=== PATIENT | female | born 1995 | race Caucasian/White ===

== ENCOUNTER 2019-06-16 18:39 | Emergency (ER) | payer OTHER ==
--- OUTSIDE RECORDS SUMMARY | 2019-06-16 18:41 | XMS REPORT | Encounter Summary ---
:1995 Author Care Team Providers Name Role Phone Grace Arroyo Primary Care Provider [phone] Reason for Visit congestion; cough / wheezing Instructions 1. Muscle spasm of cervical muscle of neck cyclobenzaprine 5 mg tablet 2. Acute upper respiratory infection upper respiratory infection (cold): care instructions Zithromax Z-Bret 250 mg tablet Medrol (Bret) 4 mg tablets in a dose pack Depo-Medrol 40 mg/mL suspension for injection Discussion Note: None recorded. Plan of Care Reminders Provider Appointments None recorded. Lab None recorded. Referral None recorded. Procedures None recorded. Surgeries None recorded. Imaging None recorded. Medications Name Start Date cyclobenzaprine 5 mg tablet Take 1 tablet 3 times a day by oral route for 5 days. Medrol (Bret) 4 mg tablets in a dose pack Take by oral route as directed Nexplanon 68 mg subdermal implant Inject by subcutaneous route. Zithromax Z-Bret 250 mg tablet TAKE 2 TABLETS (500 MG) BY ORAL ROUTE ONCE DAILY FOR 1 DAY THEN 1 TABLET (250 MG) BY ORAL ROUTE ONCE DAILY FOR 4 DAYS Medications Administered None recorded. Vitals Height Weight BMI Blood Pressure 64 in 222 lbs 3 oz 38.1 kg/m2 143/73 mm[Hg] Lab Results None recorded. Allergies Code Code System Name Reaction Severity Status Onset NKDA Problems Name Status Onset Date Source Contact Dermatitis Active Encounter Procedures Date Name Performed by 06/19/2011 Caesarean Section Information not available Vaccine List None recorded. Social History Smoking Status Former Smoker Past Encounters 06/25/2018 Muscle Spasm of Cervical Muscle of Neck; Acute Upper Respiratory Infection Rey Rodriguez MD: [address] [place] [address], [address], [place] [address], Ph. History of Present Illness Upper Respiratory Symptoms Reported By: Patient Upper Respiratory Symptoms: Location: chest, throat. Quality: sharp throat pain, congested, hurts to swallow. Severity: mild. Duration: ; 2 days ago. Onset/Timing: gradual. Context: no sick contacts, no foreign travel, non-smoker. Associated Symptoms: no vomiting, no diarrhea, no rash, no nausea, morning cough, sore throat Notes: tight neck, no photophobia, no nausea or vomiting,has had [place] in the past Review of Systems: ROS as noted in the HPI Review of Systems None recorded. Physical Exam General Adult Exam - Female, Upper Respiratory Infection Exam Reported By: Patient ENMT: Ears: TM erythematous. Nose: frontal sinus tenderness, maxillary sinus tenderness. Oropharynx: moist mucous membranes, erythema, tonsils enlarged, tenderness Neck: Neck: pain with motion, muscle rigidity; tender muscl spasm right paracervical spine with decreased rom. Lymph Nodes: LAD. Thyroid: no enlargement, non-tender Lungs: Auscultation: no wheezing, no rales/crackles, no rhonchi, clear to auscultation Cardiovascular: Heart Auscultation: normal S1, normal S2, no murmurs. Rate And Rhythm RRR Notes: NAD, complains of stiffness right side if neck. No rashes, well nourished.
--- OUTSIDE RECORDS SUMMARY | 2019-06-16 18:41 | XMS REPORT | Continuity of Care Document ---
:1995 Author Organization [facility] Address [address] [place] [address] Phone Unavailable Care Team Providers Name Role Phone ANOOP CHILDS Primary Care Physician Insurance Providers Guarantor Rocio Cabrera Address [address] [place] [address] Email [email or web address] Payer Medicaid Policy Number [id number] Subscriber's Name Rocio Cabrera Relationship Self / Same As Patient Group Number NA Group Name HTW Advance Directives Directive Response Recorded Date/Time Advance Directives No 01/12/16 9:04am Advance Directive on File No 08/08/18 2:40pm Directive to Physicians/Living Will No 01/12/16 9:04am Health Care Proxy No 01/12/16 9:04am Name of Surrogate/Decision Maker NA 08/08/18 4:55pm Organ Donor No 01/12/16 9:04am Medical Power of Chief Information Officer No 01/12/16 9:04am Patient/Family Given Education Material R/T Directives? Y - VV 08/08/18 4: 55pm Chief Complaint and Reason for Visit Chief Complaint Abdominal/GI/Nausea/Vomiting Reason for Visit UTI (urinary tract infection) Problems Medical Problem Onset Date Status Anemia Unknown Acute Delivery with history of 12/11/2014 Acute Unknown Acute UTI (urinary tract infection) Unknown Acute Vomiting Unknown Acute Surgical Problem Onset Date Status Status post 12/11/2014 Acute Status post repeat low transverse section Unknown Acute Past Problems Medical Problem Onset Date Status Headache Unknown Acute Pyelonephritis Unknown Acute Syncope Unknown Acute Medications Current Home Medications Medication Dose Units Route Directions Days Qty Instructions Start Date Fe Fumarate-Fe 1 Tab ORAL Once Daily 30 Cap 12/13/14 Polysaccharide- * (Integra *) Cap Hydrocodone-Alex 1-2 Tabs ORAL Every 4-6H As 30 Tablet 12/13/14 taminophen Needed/ Pain as 5/325MG * needed for Pain ([place] 5/325MG *) 1 Tab Tab Hydrocodone-Alex 1-2 Tabs ORAL Every 4-6H As 30 Tablet 01/13/16 taminophen Needed/ Pain as 5/325MG * needed for Pain ([place] 5/325MG *) 1 Tab Tab Ibuprofen 800 800 Mg ORAL Every 6 Hours 30 Tablet 12/13/14 Mg Tab As Needed Ibuprofen 800 800 Mg ORAL Every 6 Hours 30 Tablet 01/13/16 Mg Tab As Needed 1 Tab ORAL Daily 30 Tablet Multivit-Min W/Fe-Fa * ( *) Tab Social History Social History Problem Response Recorded Date/Time Onset Date Status Hx Physical Abuse No 08/08/2018 2:40pm Not Applicable Not Applicable Smoking Status Start Date Stop Date Never smoker Hospital Discharge Instructions No hospital discharge instruction information available. Plan of Care Discharge Date 08/08/18 7:36pm Instructions/Education Provided Urinary Tract Infection, Adult, [id number] Forms Provided Portal Welcome Letter Prescriptions See Medication Section Referrals ANOOP CHILDS Address: [address] [place] [id number] Additional Instructions/Education Cipro 500mg 1 tab. twice a day Protonix 40mg 1 tab. once daily FOLLOW UP WITH PCP IN 1-2 DAYS RETURN IF SYMPTOMS WORSEN, FEVER, OR NEW SYMPTOMS RETURN TO DUTY AFTER FOLLOW UP WITH PCP Functional Status No functional status information available. Allergies, Adverse Reactions, Alerts Allergen Type Severity Reaction Status Last Updated HAZEL Allergy Unknown Active 09/29/13 NKDA Allergy Unknown Active 11/06/15 Immunizations No immunization information available. Vital Signs Acute Vital Signs Vital Response Date/Time Blood Pressure 109/64 mm Hg 08/08/2018 7:44pm Pulse Pulse Rate (adult) 62 beats per minute (60 - 100) 08/08/2018 7:44pm Respiratory Rate 20 breaths per minute (10 - 24) 08/08/2018 7:44pm Temperature Source Oral 08/08/2018 7:44pm Height 5 ft 3 in 08/08/2018 2:40pm Weight 222.38 lb 08/08/2018 2:40pm Body Mass Index 39.4 kg/m^2 08/08/2018 2:40pm Results Laboratory Results Test Name Result Units Flags Reference Collection Result Comments Date/Time Date/Time White Blood Count 6.9 K/ul 4.0-11.5 08/08/2018 08/08/2018 2:52pm 3:00pm Red Blood Count 4.60 M/ul 3.80-5.20 08/08/2018 08/08/2018 2:52pm 3:00pm Hemoglobin 13.6 g/dl 10.5-15.7 08/08/2018 08/08/2018 2:52pm 3:00pm Hematocrit 41.2 % 34.0-50.0 08/08/2018 08/08/2018 2:52pm 3:00pm Mean Corpuscular 89.6 fl 78-98 08/08/2018 08/08/2018 Volume 2:52pm 3:00pm Mean Corpuscular 29.5 pg 26.2-33.4 08/08/2018 08/08/2018 Hemoglobin 2:52pm 3:00pm Mean Corpuscular 32.9 g/dl 31.5-36.2 08/08/2018 08/08/2018 Hemoglobin Concent 2:52pm 3:00pm Red Cell 12.1 % 11.5-15.5 08/08/2018 08/08/2018 Distribution Width 2:52pm 3:00pm Platelet Count 205 K/ul 137-338 08/08/2018 08/08/2018 2:52pm 3:00pm Mean Platelet 7.9 fl L 8.4-11.8 08/08/2018 08/08/2018 Volume 2:52pm 3:00pm Neutrophils (%) 48.3 % 44.4-80.1 08/08/2018 08/08/2018 (Auto) 2:52pm 3:00pm Lymphocytes (%) 40.2 % 10.0-50.0 08/08/2018 08/08/2018 (Auto) 2:52pm 3:00pm Monocytes (%) 9.9 % 3.6-12.04 08/08/2018 08/08/2018 (Auto) 2:52pm 3:00pm Eosinophils (%) 0.9 % 0.0-5.41 08/08/2018 08/08/2018 (Auto) 2:52pm 3:00pm Basophils (%) 0.6 % 0.0-0.79 08/08/2018 08/08/2018 (Auto) 2:52pm 3:00pm Urine Color YELLOW 08/08/2018 08/08/2018 2:42pm 2:57pm Urine Appearance CLOUDY A CLEAR 08/08/2018 08/08/2018 2:42pm 2:57pm Urine Glucose NEGATIVE NEGATIVE 08/08/2018 08/08/2018 2:42pm 2:57pm Urine Bilirubin NEGATIVE NEGATIVE 08/08/2018 08/08/2018 2:42pm 2:57pm Urine Ketones NEGATIVE NEGATIVE 08/08/2018 08/08/2018 2:42pm 2:57pm Urine Specific 1.025 1.003-1.03 08/08/2018 08/08/2018 [place] 0 2:42pm 2:57pm Urine Blood NEGATIVE NEGATIVE 08/08/2018 08/08/2018 2:42pm 2:57pm Urine pH 6.500 5-9 08/08/2018 08/08/2018 2:42pm 2:57pm Urine Protein TRACE H NEGATIVE 08/08/2018 08/08/2018 2:42pm 2:57pm Urine Urobilinogen 0.2 E.U./dL 0.2-1.0 08/08/2018 08/08/2018 2:42pm 2:57pm Urine Nitrate NEGATIVE NEGATIVE 08/08/2018 08/08/2018 2:42pm 2:57pm Urine Leukocyte 3+ LARGE H NEGATIVE 08/08/2018 08/08/2018 Esterase 2:42pm 2:57pm Urine RBC NONE SEEN /hpf 0-5 08/08/2018 08/08/2018 2:42pm 2:57pm Urine WBC 6-10 /hpf H 0-5 08/08/2018 08/08/2018 2:42pm 2:57pm Urine Bacteria SMALL (1+) /hpf H None 08/08/2018 08/08/2018 Detect 2:42pm 2:57pm Urine Casts 2-5 /lpf None 08/08/2018 08/08/2018 Detect 2:42pm 2:57pm Urine Culture NO. 08/08/2018 08/08/2018 >10 EPITHELIAL CELLS/HPF. INDICATIVE OF CONTAMINATED URINE. Reflexed CONTAMINAT 2:42pm 2:57pm CULTURE WILL NOT BE PERFORMED. PLEASE RECOLLECT IF CULTURE ED. IS DEEMED NECESSARY. Urine Squamous MORE THAN /lpf 0-5 08/08/2018 08/08/2018 Epithelial Cells 25/lpf 2:42pm 2:57pm Urine Mucus 1+ /lpf None 08/08/2018 08/08/2018 Detect 2:42pm 2:57pm Urine Amorphous SMALL /lpf None Seen 08/08/2018 08/08/2018 Sediment 2:42pm 2:57pm Random Glucose 73 mg/dL L 74-106 08/08/2018 08/08/2018 2:52pm 3:14pm Blood Urea 13 mg/dL -08/08/2018 08/08/2018 Nitrogen 2:52pm 3:14pm Serum Osmolality 280 280-300 08/08/2018 08/08/2018 2:52pm 3:14pm Creatinine 0.7 mg/dL 0.50-0.90 08/08/2018 08/08/2018 2:52pm 3:14pm Glomerular > 60.00 08/08/2018 08/08/2018 GFR RESULTS ARE REPORTED IN mL/min/1.73m2. Filtration Rate 2:52pm 3:14pm Calc Normal GFR: >60mL/min Moderately decreased GFR: 30-59 mL/min Severely decreased GFR: 15-29 mL/min Kidney Failure (or Dialysis): <15 mL/min The calculated eGFR is not valid for patients younger than 18 years or older than 75 years. BUN/Creatinine 18.6 12-08/08/2018 08/08/2018 Ratio 2:52pm 3:14pm Sodium Level 141 mmol/L 135-145 08/08/2018 08/08/2018 2:52pm 3:14pm Potassium Level 3.8 mmol/L 3.5-5.2 08/08/2018 08/08/2018 2:52pm 3:14pm Chloride Level 108 mmol/L 98-108 08/08/2018 08/08/2018 2:52pm 3:14pm Carbon Dioxide 20 mmol/L L 21-32 08/08/2018 08/08/2018 Level 2:52pm 3:14pm Anion Gap 16.8 mEq/L 1208/08/2018 08/08/2018 2:52pm 3:14pm Calcium Level 9.4 mg/dL 8.6-10.0 08/08/2018 08/08/2018 2:52pm 3:14pm Magnesium Level 2.0 mg/dL 1.6-2.6 08/08/2018 08/08/2018 2:52pm 3:14pm Total Protein 7.9 g/dL 6.6-8.7 08/08/2018 08/08/2018 2:52pm 3:14pm Albumin 4.3 g/dL 3.5-5.2 08/08/2018 08/08/2018 2:52pm 3:14pm Globulin 3.6 gm/dL 08/08/2018 08/08/2018 2:52pm 3:14pm Albumin/Globulin 1.2 >1.0 08/08/2018 08/08/2018 Ratio 2:52pm 3:14pm Total Bilirubin 0.3 mg/dL 0.0-1.2 08/08/2018 08/08/2018 2:52pm 3:14pm Aspartate Amino 16 U/L 15-32 08/08/2018 08/08/2018 Transf (AST/SGOT) 2:52pm 3:14pm Alanine 14 U/L 0-33 08/08/2018 08/08/2018 Aminotransferase 2:52pm 3:14pm (ALT/SGPT) Amylase Level 48 U/L 28-100 08/08/2018 08/08/2018 2:52pm 3:14pm Lipase 32 U/L 13-60 08/08/2018 08/08/2018 2:52pm 3:14pm Total Alkaline 104 U/L 35-105 08/08/2018 08/08/2018 Phosphatase 2:52pm 3:14pm Urine HCG, NEGATIVE NEG 08/08/2018 08/08/2018 Qualitative 2:42pm 2:53pm If a negative result is obtained but is suspected, a new specimen should be collected after 48-72 hours and tested. If waiting 48 hrs is not medically advisable, the test result should be confirmed with at quantitative hCG assay. Procedures Procedure Status Date Provider(s) Computed tomography of abdomen and pelvis with Completed 08/08/18 VALENTINA REINOSO MD contrast Encounters Encounter Location Arrival/Admit Date Discharge/Depart Date Attending Provider Departed [place] 08/08/18 2:21pm 08/08/18 7:36pm VALENTINA REINOSO [facility] Recent Diagnosis
--- OUTSIDE RECORDS SUMMARY | 2019-06-16 18:42 | XMS REPORT | Continuity of Care Document ---
:1995 Author Organization [facility] Address [address] [place] [address] Phone Unavailable Care Team Providers Name Role Phone ANOOP CHILDS Primary Care Physician Insurance Providers Guarantor RickRocio Address [address] [place] [address] Email [email or web address] Payer Medicaid Policy Number [id number] Subscriber's Name Rocio Cabrera Relationship Self / Same As Patient Group Number NA Group Name HTW Advance Directives Directive Response Recorded Date/Time Advance Directives No 01/12/16 9:04am Advance Directive on File No 08/09/18 12:43pm Directive to Physicians/Living Will No 01/12/16 9:04am Health Care Proxy No 01/12/16 9:04am Organ Donor No 01/12/16 9:04am Medical Power of Photographer Lith[employer] No 01/12/16 9:04am Patient/Family Given Education Material R/T Y - 08/09/18...[place] 08/09/18 1: 54pm Directives? Chief Complaint and Reason for Visit Chief Complaint Abdominal/GI/Nausea/Vomiting Reason for Visit Nonspecific mesenteric adenitis Urine positive for Chlamydia trachomatis by PCR Right sided abdominal pain UTI (urinary tract infection) Problems Medical Problem Onset Date Status Anemia Unknown Acute Delivery with history of 12/11/2014 Acute Unknown Acute UTI (urinary tract infection) Unknown Acute Vomiting Unknown Acute Surgical Problem Onset Date Status Status post 12/11/2014 Acute Status post repeat low transverse section Unknown Acute Past Problems Medical Problem Onset Date Status Headache Unknown Acute Nonspecific mesenteric adenitis Unknown Acute Pyelonephritis Unknown Acute Right sided abdominal pain Unknown Acute Syncope Unknown Acute Urine positive for Chlamydia trachomatis by PCR Unknown Acute Medications Current Home Medications Medication Dose Units Route Directions Days Qty Instructions Start Date Fe Fumarate-Fe 1 Tab ORAL Once Daily 30 Cap 12/13/14 Polysaccharide- * (Integra *) Cap Hydrocodone-Alex 1-2 Tabs ORAL Every 4-6H As 30 Tablet 12/13/14 taminophen Needed/ Pain 5/325MG * as needed for ([place] 5/325MG Pain *) 1 Tab Tab Hydrocodone-Alex 1-2 Tabs ORAL Every 4-6H As 30 Tablet 01/13/16 taminophen Needed/ Pain 5/325MG * as needed for ([place] 5/325MG Pain *) 1 Tab Tab Ibuprofen 800 800 Mg ORAL Every 6 Hours 30 Tablet 12/13/14 Mg Tab As Needed Ibuprofen 800 800 Mg ORAL Every 6 Hours 30 Tablet 01/13/16 Mg Tab As Needed Naproxen 500 Mg ORAL Twice A Day 7 Days 14 Tablet 08/09/18 (Naprosyn 500 for Pain Mg*) 500 Mg Tab 1 Tab ORAL Daily 30 Tablet Multivit-Min W/Fe-Fa * ( *) Tab Trimethoprim/[place] 1 Tab ORAL Twice A Day 7 Days 14 Tablet 08/09/18 lfamethoxazole for Infection (Bactrim Ds *) 800/160 Mg Tab Past Home Medications Medication Directions Ordered Status Azithromycin (Zithromax *) 500 Mg For One Dose Only for 08/09/18 Discontinued Tab, 1000 Mg Oral Infection Social History Social History Problem Response Recorded Date/Time Onset Date Status Hx Physical Abuse No 08/09/2018 12:43pm Not Applicable Not Applicable Smoking Status Start Date Stop Date Never smoker Hospital Discharge Instructions No hospital discharge instruction information available. Plan of Care Discharge Date 08/09/18 4:28pm Instructions/Education Provided Mesenteric Adenitis, Adult Urinary Tract Infection, Adult Abdominal Pain, Adult Forms Provided Portal Welcome Letter Prescriptions See Medication Section Referrals ANOOP CHILDS Address: [address] [place] [id number] Additional Instructions/Education BACTRIM-DS & NAPROSYN Rx. DRINK MORE WATER. ' ENSURE COMPLIANCE WITH YOUR MEDICATIONS. SEE YOUR PCP FOR RECHECK WITHIN 5 DAYS, OR EARLIER IF WORSE. ADDENDUM: RESULT OF URINE CHLAMYDIA TEST CAME BACK +VE., SHE WAS LEAVING. SHE WAS CALLED BACK & GIVEN ZITHROMAX 1 gm IN THE ED FOP THIS NO UNPROTECTED SEX UNTIL YOUR PARTNER HAS BEEN TREATED FOR CHLAMYDIA Functional Status No functional status information available. Allergies, Adverse Reactions, Alerts Allergen Type Severity Reaction Status Last Updated HAZEL Allergy Unknown Active 09/29/13 NKDA Allergy Unknown Active 11/06/15 Immunizations No immunization information available. Vital Signs Acute Vital Signs Vital Response Date/Time Blood Pressure 97/53 mm Hg 08/09/2018 4:28pm Pulse Pulse Rate (adult) 60 beats per minute (60 - 100) 08/09/2018 4:28pm Respiratory Rate 16 breaths per minute (10 - 24) 08/09/2018 4:28pm Temperature Source Oral 08/09/2018 4:28pm Height 5 ft 3 in 08/09/2018 12:43pm Weight 222 lb 08/09/2018 12:43pm Body Mass Index 39.3 kg/m^2 08/09/2018 12:43pm Results Laboratory Results Test Name Result Units Flags Reference Collection Result Comments Date/Time Date/Time Urine Squamous MORE THAN /lpf 0-5 08/08/2018 08/08/2018 Epithelial Cells 25/lpf 2:42pm 2:57pm Magnesium Level 2.0 mg/dL 1.6-2.6 08/08/2018 08/08/2018 2:52pm 3:14pm Amylase Level 48 U/L 28-100 08/08/2018 08/08/2018 2:52pm 3:14pm Urine HCG, NEGATIVE NEG 08/08/2018 08/08/2018 Qualitative 2:42pm 2:53pm If a negative result is obtained but is suspected, a new specimen should be collected after 48-72 hours and tested. If waiting 48 hrs is not medically advisable, the test result should be confirmed with at quantitative hCG assay. White Blood Count 8.0 K/ul 4.0-11.5 08/09/2018 08/09/2018 1:48pm 1:55pm Red Blood Count 4.57 M/ul 3.80-5.20 08/09/2018 08/09/2018 1:48pm 1:55pm Hemoglobin 13.1 g/dl 10.5-15.7 08/09/2018 08/09/2018 1:48pm 1:55pm Hematocrit 40.5 % 34.0-50.0 08/09/2018 08/09/2018 1:48pm 1:55pm Mean Corpuscular 88.6 fl 78-98 08/09/2018 08/09/2018 Volume 1:48pm 1:55pm Mean Corpuscular 28.6 pg 26.2-33.4 08/09/2018 08/09/2018 Hemoglobin 1:48pm 1:55pm Mean Corpuscular 32.3 g/dl 31.5-36.2 08/09/2018 08/09/2018 Hemoglobin Concent 1:48pm 1:55pm Red Cell 12.1 % 11.5-15.5 08/09/2018 08/09/2018 Distribution Width 1:48pm 1:55pm Platelet Count 219 K/ul 137-338 08/09/2018 08/09/2018 1:48pm 1:55pm Mean Platelet 7.6 fl L 8.4-11.8 08/09/2018 08/09/2018 Volume 1:48pm 1:55pm Neutrophils (%) 60.4 % 44.4-80.1 08/09/2018 08/09/2018 (Auto) 1:48pm 1:55pm Lymphocytes (%) 31.7 % 10.0-50.0 08/09/2018 08/09/2018 (Auto) 1:48pm 1:55pm Monocytes (%) 6.2 % 3.6-12.04 08/09/2018 08/09/2018 (Auto) 1:48pm 1:55pm Eosinophils (%) 1.0 % 0.0-5.41 08/09/2018 08/09/2018 (Auto) 1:48pm 1:55pm Basophils (%) 0.7 % 0.0-0.79 08/09/2018 08/09/2018 (Auto) 1:48pm 1:55pm Urine Color YELLOW 08/09/2018 08/09/2018 UNK 2:15pm Urine Appearance SL CLOUDY A CLEAR 08/09/2018 08/09/2018 UNK 2:15pm Urine Glucose NEGATIVE NEGATIVE 08/09/2018 08/09/2018 UNK 2:15pm Urine Bilirubin NEGATIVE NEGATIVE 08/09/2018 08/09/2018 UNK 2:15pm Urine Ketones NEGATIVE NEGATIVE 08/09/2018 08/09/2018 UNK 2:15pm Urine Specific 1.036 H 1.003-1.03 08/09/2018 08/09/2018 [place] 0 UNK 2:15pm Urine Blood NEGATIVE NEGATIVE 08/09/2018 08/09/2018 UNK 2:15pm Urine pH 7.000 5-9 08/09/2018 08/09/2018 UNK 2:15pm Urine Protein TRACE NEGATIVE 08/09/2018 08/09/2018 UNK 2:15pm Urine Urobilinogen 2.0-3.0 mg/dL H 0.2-1.0 08/09/2018 08/09/2018 UNK 2:15pm Urine Nitrate NEGATIVE NEGATIVE 08/09/2018 08/09/2018 UNK 2:15pm Urine Leukocyte 2+ H NEGATIVE 08/09/2018 08/09/2018 Esterase UNK 2:15pm Urine RBC 1-5 /hpf 0-5 08/09/2018 08/09/2018 UNK 2:26pm Urine WBC 11-14 /hpf H 0-5 08/09/2018 08/09/2018 UNK 2:26pm Urine Epithelial 6-10 /hpf 0-5 08/09/2018 08/09/2018 Cells UNK 2:26pm Urine Bacteria MODERATE /hpf H None 08/09/2018 08/09/2018 (2+) Detect UNK 2:26pm Urine Casts 6-10 /lpf H None 08/09/2018 08/09/2018 Detect UNK 2:26pm Urine Culture YES 08/09/2018 08/09/2018 Reflexed UNK 2:15pm Urine Mucus 1+ /lpf None 08/09/2018 08/09/2018 Detect UNK 2:26pm Urine Amorphous SMALL /lpf None Seen 08/09/2018 08/09/2018 Sediment UNK 2:26pm Urine Pathogenic Coarse /hpf A None 08/09/2018 08/09/2018 Casts granular Detect UNK 2:26pm 1-5 Random Glucose 94 mg/dL 74-106 08/09/2018 08/09/2018 1:48pm 2:23pm Blood Urea 15 mg/dL 608/09/2018 08/09/2018 Nitrogen 1:48pm 2:23pm Serum Osmolality 280 280-300 08/09/2018 08/09/2018 1:48pm 2:23pm Creatinine 0.7 mg/dL 0.50-0.90 08/09/2018 08/09/2018 1:48pm 2:23pm Glomerular > 60.00 08/09/2018 08/09/2018 GFR RESULTS ARE REPORTED IN mL/min/1.73m2. Filtration Rate 1:48pm 2:23pm Calc Normal GFR: >60mL/min Moderately decreased GFR: 30-59 mL/min Severely decreased GFR: 15-29 mL/min Kidney Failure (or Dialysis): <15 mL/min The calculated eGFR is not valid for patients younger than 18 years or older than 75 years. BUN/Creatinine 21.4 H 06-0708/09/2018 08/09/2018 Ratio 1:48pm 2:23pm Sodium Level 140 mmol/L 135-145 08/09/2018 08/09/2018 1:48pm 2:23pm Potassium Level 3.9 mmol/L 3.5-5.2 08/09/2018 08/09/2018 1:48pm 2:23pm Chloride Level 107 mmol/L 98-108 08/09/2018 08/09/2018 1:48pm 2:23pm Carbon Dioxide 22 mmol/L 21-32 08/09/2018 08/09/2018 Level 1:48pm 2:23pm Anion Gap 14.9 mEq/L 06-0708/09/2018 08/09/2018 1:48pm 2:23pm Calcium Level 9.1 mg/dL 8.6-10.0 08/09/2018 08/09/2018 1:48pm 2:23pm Total Protein 7.4 g/dL 6.6-8.7 08/09/2018 08/09/2018 1:48pm 2:23pm Albumin 4.3 g/dL 3.5-5.2 08/09/2018 08/09/2018 1:48pm 2:23pm Globulin 3.1 gm/dL 08/09/2018 08/09/2018 1:48pm 2:23pm Albumin/Globulin 1.4 >1.0 08/09/2018 08/09/2018 Ratio 1:48pm 2:23pm Total Bilirubin < 0.3 mg/dL 0.0-1.2 08/09/2018 08/09/2018 1:48pm 2:23pm Aspartate Amino 15 U/L 15-32 08/09/2018 08/09/2018 Transf (AST/SGOT) 1:48pm 2:23pm Alanine 14 U/L 0-33 08/09/2018 08/09/2018 Aminotransferase 1:48pm 2:23pm (ALT/SGPT) Lipase 27 U/L 13-60 08/09/2018 08/09/2018 1:48pm 2:23pm Total Alkaline 100 U/L 35-105 08/09/2018 08/09/2018 Phosphatase 1:48pm 2:23pm Procedures Procedure Status Date Provider(s) Computed tomography of abdomen and pelvis with Completed 08/08/18 VALENTINA REINOSO MD contrast Encounters Encounter Location Arrival/Admit Date Discharge/Depart Date Attending Provider Departed [place] 08/09/18 12:29pm 08/09/18 4:28pm LEANNE DOUGLAS [facility] Departed [place] 08/08/18 2:21pm 08/08/18 7:36pm VALENTINA REINOSO [facility] Recent Diagnosis
--- NOTE | 2019-06-16 20:05 | ER ---
Nurse's Notes [facility] Name: Marly Cabrera Age: 23 yrs Sex: Female : 1995 Arrival Date: 06/16/2019 Time: 18:41 Bed 28 Private MD: Diagnosis: Acute pharyngitis, unspecified Presentation: 06/16 19:20 Presenting complaint: Patient states: she has a sore throat, fever, and a cough since bb pt took ibuprofen 800 mg at approx 1700 tonight. Transition of care: patient was not received from another setting of care. Onset of symptoms was June 13, 2019. Risk Assessment: Do you want to hurt yourself or someone else? Patient reports no desire to harm self or others. Initial Sepsis Screen: Does the patient meet any 2 criteria? No. Patient's initial sepsis screen is negative. Does the patient have a suspected source of infection? No. Patient's initial sepsis screen is negative. Care prior to arrival: None. 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 - Ebola Screening: : No symptoms or risks identified at this time. Screenin:15 Abuse screen: Denies threats or abuse. Nutritional screening: No deficits noted. sr5 Tuberculosis screening: No symptoms or risk factors identified. Fall Risk None identified. Assessment: 20:15 Reassessment: No changes from previously documented assessment. Patient is alert, sr5 oriented x 3, equal unlabored respirations, skin warm/dry/pink. +nonproductive cough noted, "feel so cold". Temp checked, no fever. Vital Signs: 19:21 BP 105 / 91; Pulse 98; Resp 16 S; Temp 98.6(O); Pulse Ox 100% on R/A; bb 20:15 BP 109 / 71; Pulse 98; Resp 18; Temp 97.5; Pulse Ox 100% on R/A; sr5 ED Course: 18:41 Patient arrived in ED. as 18:51 Elham Rucker FNP-C is [facility]. snw 18:51 Izaiah Celeste MD is Attending Physician. snw 19:21 Triage completed. bb 19:21 Arm band placed on Patient placed in an exam room, on a stretcher, on pulse oximetry. bb Family accompanied patient. 19:26 Tanner Troy, RN is Primary Nurse. sr5 20:15 Patient has correct armband on for positive identification. Bed in low position. Call sr5 light in reach. Side rails up X 1. Pulse ox on. NIBP on. 20:15 No provider procedures requiring assistance completed. Patient did not have IV access sr5 during this emergency room visit. Administered Medications: 20:04 CANCELLED (Other Intervention Used): Augmentin 875 mg PO once snw 20:14 Drug: Tussionex Pennkinetic ER 5 ml Route: PO; sr5 20:33 Follow up: Response: No adverse reaction sr5 20:14 Drug: Zithromax 500 mg Route: PO; sr5 20:33 Follow up: Response: No adverse reaction sr5 20:15 Drug: Decadron - Dexamethasone 10 mg Route: IVP; Site: Other; sr5 20:33 Follow up: Response: No adverse reaction sr5 Outcome: 20:03 Discharge ordered by . snw 20:33 Discharged to home ambulatory, with family. sr5 20:33 Condition: good 20:33 Discharge instructions given to patient, Instructed on discharge instructions, follow up and referral plans. medication usage, Demonstrated understanding of instructions, follow-up care, medications, Prescriptions given X 2. 20:34 Patient left the ED. sr5 Signatures: Elham Rucker FNP-C MEDICAL SALES ASSOCIATE-Ashleigh Arceo Brenda RN RN bb Tanner Troy RN RN sr5
--- NOTE | 2019-06-16 20:06 | EDPHYS ---
Physician Documentation [facility] Name: Marly Cabrera Age: 23 yrs Sex: Female : 1995 Arrival Date: 06/16/2019 Time: 18:41 Bed 28 Private MD: ED Physician Izaiah Celeste HPI: 06/16 20:01 This 23 yrs old Female presents to ER via Ambulatory with complaints of Sore snw Throat, Headache, Fever. 20:01 The patient presents with sore throat, dysphagia, of solids. The patient describes snw throat pain as scratchy, suffocating. Onset: The symptoms/episode began/occurred suddenly, 4 day(s) ago, and became persistent. Severity of symptoms: At their worst the symptoms were moderate, severe. Associated signs and symptoms: The patient has no apparent associated signs or symptoms. The patient has not experienced similar symptoms in the past. It is unknown whether or not the patient has recently seen a physician. 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 - Ebola Screening: : No symptoms or risks identified at this time. ROS: 20:00 Eyes: Negative for injury, pain, redness, and discharge, Neck: Negative for injury, snw pain, and swelling, Cardiovascular: Negative for chest pain, palpitations, and edema, Respiratory: Negative for shortness of breath, cough, wheezing, and pleuritic chest pain, Abdomen/GI: Negative for abdominal pain, nausea, vomiting, diarrhea, and constipation, Back: Negative for injury and pain, : Negative for injury, bleeding, discharge, and swelling, MS/Extremity: Negative for injury and deformity, Skin: Negative for injury, rash, and discoloration, Neuro: Negative for headache, weakness, numbness, tingling, and seizure, Psych: Negative for depression, anxiety, suicide ideation, homicidal ideation, and hallucinations. 20:00 Constitutional: Positive for fatigue, malaise. 20:00 ENT: Positive for difficulty swallowing, sinus congestion, sore throat. Exam: 19:59 Constitutional: This is a well developed, well nourished patient who is awake, alert, snw and in no acute distress. Head/Face: Normocephalic, atraumatic. Eyes: Pupils equal round and reactive to light, extra-ocular motions intact. Lids and lashes normal. Conjunctiva and sclera are non-icteric and not injected. Cornea within normal limits. Periorbital areas with no swelling, redness, or edema. Neck: Trachea midline, no thyromegaly or masses palpated, and no cervical lymphadenopathy. Supple, full range of motion without nuchal rigidity, or vertebral point tenderness. No Meningismus. Chest/axilla: Normal chest wall appearance and motion. Nontender with no deformity. No lesions are appreciated. Cardiovascular: Regular rate and rhythm with a normal S1 and S2. No gallops, murmurs, or rubs. Normal PMI, no JVD. No pulse deficits. Respiratory: Lungs have equal breath sounds bilaterally, clear to auscultation and percussion. No rales, rhonchi or wheezes noted. No increased work of breathing, no retractions or nasal flaring. Abdomen/GI: Soft, non-tender, with normal bowel sounds. No distension or tympany. No guarding or rebound. No evidence of tenderness throughout. Back: No spinal tenderness. No costovertebral tenderness. Full range of motion. Skin: Warm, dry with normal turgor. Normal color with no rashes, no lesions, and no evidence of cellulitis. MS/ Extremity: Pulses equal, no cyanosis. Neurovascular intact. Full, normal range of motion. Neuro: Awake and alert, GCS 15, oriented to person, place, time, and situation. Cranial nerves II-XII grossly intact. Motor strength 5/5 in all extremities. Sensory grossly intact. Cerebellar exam normal. Normal gait. 19:59 ENT: External ear(s): are unremarkable, Ear canal(s): are normal, TM's: are normal, Nose: is normal, Mouth: is normal, Posterior pharynx: Tonsils: bilaterally enlarged, swelling, that is moderate, erythema, that is mild, that is moderate, exudate, is not appreciated, Voice: no trismus. Vital Signs: 19:21 BP 105 / 91; Pulse 98; Resp 16 S; Temp 98.6(O); Pulse Ox 100% on R/A; bb 20:15 BP 109 / 71; Pulse 98; Resp 18; Temp 97.5; Pulse Ox 100% on R/A; sr5 MDM: 19:19 Patient medically screened. apolonia 20:04 Data reviewed: vital signs, nurses notes. Data interpreted: Pulse oximetry: on room air snw is 100 %. Interpretation: normal. Counseling: I had a detailed discussion with the patient and/or guardian regarding: the historical points, exam findings, and any diagnostic results supporting the discharge/admit diagnosis, the presence of at least one elevated blood pressure reading (>120/80) during this emergency department visit, lab results, the need for outpatient follow up, to return to the emergency department if symptoms worsen or persist or if there are any questions or concerns that arise at home. Special discussion: I have referred the patient to see his PCP for further evaluation of high blood pressure. Based on the history and exam findings, there is no indication for further emergent testing or inpatient evaluation. I discussed with the patient/guardian the need to see the road inspector/oncologist for further evaluation of the symptoms. 06/16 19:11 Order name: Flu; Complete Time: 20:05 snw 06/16 19:11 Order name: Strep; Complete Time: 20:02 snw 06/16 19:58 Order name: Throat Culture EDMS Administered Medications: 20:04 CANCELLED (Other Intervention Used): Augmentin 875 mg PO once snw 20:14 Drug: Tussionex Pennkinetic ER 5 ml Route: PO; sr5 20:33 Follow up: Response: No adverse reaction sr5 20:14 Drug: Zithromax 500 mg Route: PO; sr5 20:33 Follow up: Response: No adverse reaction sr5 20:15 Drug: Decadron - Dexamethasone 10 mg Route: IVP; Site: Other; sr5 20:33 Follow up: Response: No adverse reaction sr5 Disposition: 06/16/19 20:03 Discharged to Home. Impression: Acute pharyngitis, unspecified. - Condition is Stable. - Discharge Instructions: Pharyngitis, Upper Respiratory Infection, Adult. - Prescriptions for Zyrtec 10 mg Oral Tablet - take 1 tablet by ORAL route once daily As needed; 20 tablet. Zithromax 500 mg Oral Tablet - take 1 tablet by ORAL route once daily for 5 days; 5 tablet. - Medication Reconciliation Form, Thank You Letter, Antibiotic Education, Prescription Opioid Use, Work release form, Family Work Release form. - Follow up: Private Physician; When: 2 - 3 days; Reason: Recheck today's complaints, Continuance of care, Re-evaluation by your physician. Follow up: Emergency Department; When: As needed; Reason: Worsening of condition. Addendum: 06/24/2019 11:11 Co-signature as Attending Physician, Izaiah Celeste MD I agree with the assessment and c siu plan of care. Signatures: Dispatcher [employer] EDIzaiah Garzon MD MD cha Therrien, Shelly, [employer]-C [employer]PER[employer]-Csnw Gena Gonzalez, RN RN bb Tanner Troy RN RN sr5 Corrections: (The following items were deleted from the chart) 06/16 20:04 20:02 Augmentin 875 mg PO once ordered. snw snw 20:34 20:03 06/16/2019 20:03 Discharged to Home. Impression: Acute pharyngitis, unspecified. sr5 Condition is Stable. Forms are Medication Reconciliation Form, Thank You Letter, Antibiotic Education, Prescription Opioid Use. Follow up: Private Physician; When: 2 - 3 days; Reason: Recheck today's complaints, Continuance of care, Re-evaluation by your physician. Follow up: Emergency Department; When: As needed; Reason: Worsening of condition. snw
[2019-06-16] MEDS ORDERED: HYDROCODONE/CHLORPHEN 5 ML/OSYR ONE (20:07)
[2019-06-16] MEDS ORDERED: dexAMETHasone 4 MG/ML VIAL ONE (20:07)
[2019-06-16] MEDS ORDERED: AZITHROMYCIN 250 MG TAB ONE (20:12)
[2019-06-16 22:45] VITALS: O2SAT 100
[2019-06-16 22:48] VITALS: BP 109/71; TEMP 97.5
== END 2019-06-16 20:34 | disposition home or self-care (01) ==
LOC: ER 18:39
DX: J02.9 Acute pharyngitis, unspecified (principal); Z91.048 Other nonmedicinal substance allergy status
CPT/HCPCS: 87070; 87081; 87804; 96374; 99283

== ENCOUNTER 2019-09-05 | Emergency (ER) | payer OTHER, SELFPAY ==
--- NOTE | 2019-09-05 11:39 | ER ---
Nurse's Notes [facility] Name: Marly Cabrera Age: 24 yrs Sex: Female : 1995 Arrival Date: 09/05/2019 Time: 11:23 Bed Waiting [facility] MD: Diagnosis: ED Course: 09/04 11:23 Patient arrived in ED. mr Administered Medications: No medications were administered Outcome: 11:38 Patient left the ED. iw Signatures: Guillermina Cartagena Irene RN RN iw
== END 2019-09-05 11:38 | disposition left against medical advice (07) ==
DX: Z53.21 Procedure and treatment not carried out due to patient leaving prior to being seen by health care provider (principal)

== ENCOUNTER 2019-09-09 11:36 | Emergency (ER) | payer OTHER, SELFPAY ==
--- NOTE | 2019-09-09 13:23 | RAD REPORT ---
EXAM DESCRIPTION: US - Transvaginal OB - 09/09/2019 1:08 pm CLINICAL HISTORY: ABD PAIN, positive home COMPARISON: No comparisons FINDINGS: Normal sized uterus is identified. There are no myometrial masses. Endometrial stripe is a maximum 8 mm in thickness. No intrauterine gestational sac or sac remnant identifiable. No hematoma or other endometrial finding. No blood or fluid in the cul de sac. Right ovary contains a 2 centimeter anechoic thin-walled cyst. Ovarian stroma on the right is unremar kable. Left ovarian stroma also unremarkable. Doppler evaluation shows normal ovarian blood flow. No adnexal mass to suspect ectopic . IMPRESSION: No intrauterine gestational sac, sac remnant or other finding of ongoing or recent pregn bonita. No adnexal mass or abnormality to suspect ectopic .
[2019-09-09 13:53] LABS: Absolute Lymphocytes (CBC) 2.3 K/uL (0.7-4.9); Basophils % 0.3 % (0-1.3); Hematocrit 40.1 % (36.0-45.0); Lymphocytes % 21.5 % (15.3-44.8); MPV 8.8 fL (7.6-11.3); RBC Red Blood Cell Count 4.68 M/uL (3.86-4.86)
[2019-09-09 14:10] LABS: BUN Blood Urea Nitrogen 10 mg/dL (7-18); Bicarbonate 23 mmol/L (21-32); Glucose Level 90 mg/dL (74-106); HCG, Quantitative 376 mIU/mL (1-3); Potassium 3.7 mmol/L (3.5-5.1); Sodium Level 138 mmol/L (136-145)
--- NOTE | 2019-09-09 14:34 | ER ---
Nurse's Notes [facility] Name: Marly Cabrera Age: 24 yrs Sex: Female : 1995 Arrival Date: 09/09/2019 Time: 11:38 Bed 15 Private MD: Diagnosis: Lower abdominal pain, unspecified Presentation: 09/08 11:46 Chief complaint: Patient states: "I am and I am cramping. I fell last week but ca1 I didn't know I was then". Reports pressure on pelvis. Denies fever. Coronavirus screen: Patient denies fever greater than 100.4F, cough, shortness of breath, or difficulty breathing. Proceed with normal triage process. Ebola Screen: Patient negative for fever greater than or equal to 101.5 degrees Fahrenheit, and additional compatible Ebola Virus Disease symptoms Patient denies exposure to infectious person. Patient denies travel to an Ebola-affected area in the 21 days before illness onset. No symptoms or risks identified at this time. Initial Sepsis Screen: Does the patient meet any 2 criteria? No. Patient's initial sepsis screen is negative. Does the patient have a suspected source of infection? No. Patient's initial sepsis screen is negative. Risk Assessment: Do you want to hurt yourself or someone else? Patient reports no desire to harm self or others. Onset of symptoms was September 09, 2019. 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 - Social history:: Smoking status: Patient denies any tobacco usage or history of. Patient/guardian denies using alcohol, street drugs, The patient lives with family, . - Family history:: not pertinent. Screenin:50 Abuse screen: Denies threats or abuse. Denies injuries from another. Nutritional ph screening: No deficits noted. Tuberculosis screening: No symptoms or risk factors identified. Fall Risk None identified. Assessment: 12:40 General: Appears in no apparent distress. comfortable, obese, well groomed, Behavior is ph calm, cooperative, appropriate for age. Pain: Complains of pain in suprapubic area Quality of pain is described as crampy. Neuro: Level of Consciousness is awake, alert, obeys commands, Oriented to person, place, time, situation. Cardiovascular: Capillary refill < 3 seconds in bilateral fingers Patient's skin is warm and dry. Respiratory: Airway is patent Respiratory effort is even, unlabored, Respiratory pattern is regular, symmetrical. GI: No signs and/or symptoms were reported involving the gastrointestinal system. : Reports cramping, Denies vaginal bleeding. Derm: Skin is intact, is healthy with good turgor, Skin is pink, warm \\T\\ dry. Musculoskeletal: Circulation, motion, and sensation intact. Range of motion: intact in all extremities. 14:50 Reassessment: Patient appears in no apparent distress at this time. Patient and/or ph family updated on plan of care and expected duration. Pain level reassessed. Patient is alert, oriented x 3, equal unlabored respirations, skin warm/dry/pink. Pt d/c home, instructed to follow up w/ TEST CLERK for repeat HCG in 2 days. Vital Signs: 11:46 BP 121 / 54; Pulse 68; Resp 17 S; Temp 96.6(TE); Pulse Ox 100% on R/A; Weight 108.86 kg ca1 (R); Height 5 ft. 3 in. (160.02 cm) (R); Pain 6/10; 13:30 BP 118 / 60; Pulse 71; Resp 18; Pulse Ox 98% on R/A; ph 14:30 BP 124 / 58; Pulse 66; Resp 16; Temp 97.8; Pulse Ox 99% on R/A; ph 11:46 Body Mass Index 42.51 (108.86 kg, 160.02 cm) ca1 ED Course: 11:38 Patient arrived in ED. am2 11:48 Triage completed. ca1 11:49 Arm band placed on right wrist. ca1 11:53 Clarence Bowie MD is Attending Physician. ma2 11:53 Maribell Renae, ZEB is Primary Nurse. ph 13:09 Transvaginal OB In Process Unspecified. EDMS 13:40 Initial lab(s) drawn, by me, sent to lab. Inserted saline lock: 20 gauge in right 3 antecubital area, using aseptic technique. Blood collected. 13:51 Patient has correct armband on for positive identification. Bed in low position. Call ph light in reach. Side rails up X 1. 13:51 Urine collected: clean catch specimen, clear. 3 15:00 No provider procedures requiring assistance completed. IV discontinued, intact, ph bleeding controlled, No redness/swelling at site. Pressure dressing applied. Administered Medications: No medications were administered Outcome: 14:32 Discharge ordered by . jose 15:01 Patient left the ED. ph 15:01 Discharged to home ambulatory. ph 15:01 Condition: good 15:01 Discharge instructions given to patient, Instructed on discharge instructions, follow up and referral plans. Demonstrated understanding of instructions, follow-up care. Signatures: Dispatcher [employer] EDMS Maribell Renae RN RN ph Greer Catrina [facility] Natty Platt 3 Clarence Bowie MD MD ma2 Bettye Cunha RN RN ca1 Corrections: (The following items were deleted from the chart) 11:49 11:46 Pulse 68bpm; Resp 67bpm; Pulse Ox 100% RA; Temp 96.6F Temporal; 108.86 kg ca1 Reported; Height 5 ft. 3 in. Reported; BMI: 42.5; Pain 6/10; ca1 13:14 11:46 BP 121 / 54; Pulse 68bpm; Resp 67bpm; Pulse Ox 100% RA; Temp 96.6F Temporal; ca1 108.86 kg Reported; Height 5 ft. 3 in. Reported; BMI: 42.5; Pain 6/10; ca1 13:15 11:46 Acuity: DILLON 4 ca1 ca1
--- NOTE | 2019-09-09 14:35 | EDPHYS ---
Physician Documentation [facility] Name: Marly Cabrera Age: 24 yrs Sex: Female : 1995 Arrival Date: 09/09/2019 Time: 11:38 Bed 15 Private MD: ED Physician Clarence Bowie HPI: 09/08 14:30 This 24 yrs old Female presents to ER via Ambulatory with complaints of ma2 pelvic pressure. 14:30 Onset: The symptoms/episode began/occurred gradually, 1 day(s) ago. Severity of ma2 symptoms: At their worst the symptoms were mild in the emergency department the symptoms are unchanged have improved. The patient has experienced similar episodes in the past. 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 - Social history:: Smoking status: Patient denies any tobacco usage or history of. Patient/guardian denies using alcohol, street drugs, The patient lives with family, . - Family history:: not pertinent. ROS: 14:30 Constitutional: Negative for fever, chills, and weight loss, MS/Extremity: Negative for ma2 injury and deformity. 14:30 All other systems are negative. Exam: 14:30 Constitutional: This is a well developed, well nourished patient who is awake, alert, ma2 and in no acute distress. Chest/axilla: Normal chest wall appearance and motion. Nontender with no deformity. No lesions are appreciated. Cardiovascular: Regular rate and rhythm with a normal S1 and S2. No gallops, murmurs, or rubs. Normal PMI, no JVD. No pulse deficits. Respiratory: Lungs have equal breath sounds bilaterally, clear to auscultation and percussion. No rales, rhonchi or wheezes noted. No increased work of breathing, no retractions or nasal flaring. Abdomen/GI: Soft, non-tender, with normal bowel sounds. No distension or tympany. No guarding or rebound. No evidence of tenderness throughout. Female : Normal external genitalia. Skin: Warm, dry with normal turgor. Normal color with no rashes, no lesions, and no evidence of cellulitis. MS/ Extremity: Pulses equal, no cyanosis. Neurovascular intact. Full, normal range of motion. Neuro: Awake and alert, GCS 15, oriented to person, place, time, and situation. Cranial nerves II-XII grossly intact. Motor strength 5/5 in all extremities. Sensory grossly intact. Cerebellar exam normal. Normal gait. Vital Signs: 11:46 BP 121 / 54; Pulse 68; Resp 17 S; Temp 96.6(TE); Pulse Ox 100% on R/A; Weight 108.86 kg ca1 (R); Height 5 ft. 3 in. (160.02 cm) (R); Pain 6/10; 13:30 BP 118 / 60; Pulse 71; Resp 18; Pulse Ox 98% on R/A; ph 14:30 BP 124 / 58; Pulse 66; Resp 16; Temp 97.8; Pulse Ox 99% on R/A; ph 11:46 Body Mass Index 42.51 (108.86 kg, 160.02 cm) ca1 MDM: 11:53 Patient medically screened. ma2 14:30 Differential Diagnosis bhc is very low, not zero, she will need repeat bhc in 2 day to ma2 rule out ectopic , us is negative, i explained plan, dd includes early intra uterine vs ectopic vs vaginal bleeding vs endometriosis . Data reviewed: vital signs, nurses notes. Counseling: I had a detailed discussion with the patient and/or guardian regarding: the historical points, exam findings, and any diagnostic results supporting the discharge/admit diagnosis, the presence of at least one elevated blood pressure reading (>120/80) during this emergency department visit, the need for outpatient follow up. Response to treatment: the patient's symptoms have markedly improved after treatment. 09/08 12:34 Order name: Quantitative Hcg; Complete Time: 14:19 ga2 09/08 12:34 Order name: Abo/rh Typing [facility] 09/08 12:34 Order name: Basic Metabolic Panel; Complete Time: 14:19 ga2 09/08 12:34 Order name: CBC with Diff; Complete Time: 14:19 [facility] 09/08 13:51 Order name: Urine Dipstick--Ancillary (enter results) bd 09/08 13:51 Order name: Urine --Ancillary (enter results) bd 09/08 11:53 Order name: Urine Dipstick-Ancillary (obtain specimen); Complete Time: 13:47 ma2 09/08 12:34 Order name: IV Saline Lock; Complete Time: 13:47 ma2 09/08 12:34 Order name: Labs collected and sent; Complete Time: 13:47 ma2 09/08 12:34 Order name: NPO; Complete Time: 12:53 ma2 09/08 12:34 Order name: OB Complete US ga2 09/08 12:44 Order name: Transvaginal OB EDMS 09/08 14:41 Order name: Urine --Ancillary [facility] 09/08 14:41 Order name: Urine Dipstick-Ancillary [facility] 09/08 12:34 Order name: Urine Dipstick-Ancillary (obtain specimen); Complete Time: 13:47 ma2 Administered Medications: No medications were administered Disposition: 09/09/19 14:32 Discharged to Home. Impression: Lower abdominal pain, unspecified. - Condition is Stable. - Discharge Instructions: Abdominal Pain During , [id number]. - Medication Reconciliation Form, Thank You Letter, Antibiotic Education, Prescription Opioid Use form. - Follow up: Private Physician; When: Tomorrow; Reason: Continuance of care. - Notes: follow up with your obgyn for repeated blood work to re-check Bhcg in 2 days Signatures: Dispatcher [employer] Maribell Sampson RN RN Clarence Bowie MD MD [facility] Bettye Cunha RN RN ca1 Corrections: (The following items were deleted from the chart) 15:01 14:32 09/09/2019 14:32 Discharged to Home. Impression: Lower abdominal pain, ph unspecified. Condition is Stable. Forms are Medication Reconciliation Form, Thank You Letter, Antibiotic Education, Prescription Opioid Use. Follow up: Private Physician; When: Tomorrow; Reason: Continuance of care. ma2
[2019-09-09 14:39] LABS: Urine Blood NEGATIVE (NEG); Urine Glucose NEGATIVE (NEG); Urine Protein NEGATIVE (NEG)
[2019-09-09 15:25] VITALS: BP 121/54; TEMP 96.6; O2SAT 100
== END 2019-09-09 15:01 | disposition home or self-care (01) ==
LOC: ER 11:36
DX: O26.899 Other specified pregnancy related conditions, unspecified trimester (principal); Z3A.00 Weeks of gestation of pregnancy not specified; Z91.048 Other nonmedicinal substance allergy status
CPT/HCPCS: 36415; 76817; 80048; 81003; 81025; 84702; 85025; 86900; 86901; 99283

== ENCOUNTER 2019-12-13 07:57 | Emergency (ER) | payer OTHER, SELFPAY ==
--- OUTSIDE RECORDS SUMMARY | 2019-12-13 08:58 | XMS REPORT | Continuity of Care Document ---
:1995 Author Organization [facility] t Address [address] [place] [address] Care Team Providers Name Role Phone Asked, Pcp Primary Care Physician Unavailable Pob, Lab Main Attending Clinician Unavailable Problems Condition Condition Condition Status Onset Resolution Last Treating Co mments Source Name Details Category Date Date Treatment Clinician Date Contact Contact Problem Active [place] dermatitis [facility] Allergies, Adverse Reactions, Alerts This patient has no known allergies or adverse reactions. Social History Social Habit Start Date Stop Date Quantity Comments Source Sex Assigned At [facility] ethodist Alcohol intake 2017-03-29 2017-03-29 Current [facility] thodist 00:00:00 00:00:00 non-drinker of alcohol (finding) Smoking Status Start Date Stop Date Source Former Smoker [facility] Never smoker [facility] Medications Ordered Filled Start Stop Current Ordering Indication Dosage Frequency Signature Comments Components Source Medication Medication Date Date Medication? Clinician (SIG) Name Name ondansetron 2016-06 Yes 4mg Q8H Take 1 [place] ODT (ZOFRAN 0-11 tablet (4 [place] [facility] ODT) 4 MG 00:00: mg total) st disintegrat 00 by mouth ing tablet every 8 (eight) hours as needed for nausea or vomiting for up to 9 doses. cyclobenzap cyclobenzap No 1 TID cyclobenza [place] rine 5 mg rine 5 mg debbie 5 mg da tablet Take tablet Take tablet Medical 1 tablet 3 1 tablet 3 Take 1 G roup times a day times a day tablet 3 by oral by oral times a route for 5 route for 5 day by days. days. oral route for 5 days. Medrol Medrol No Medrol [place] (Bret) 4 mg (Bret) 4 mg (Bret) 4 mg da tablets in tablets in tablets in Medical a dose pack a dose pack a dose Group Take by Take by pack Take oral route oral route by oral as directed as directed route as directed Nexplanon Nexplanon No Nexplanon [place] 68 mg 68 mg 68 mg da subdermal subdermal subdermal Medical implant implant implant Group Inject by Inject by Inject by subcutaneou subcutaneou subcutaneo s route. s route. us route. Zithromax Zithromax No Zithromax [place] Z-Bret 250 Z-Bret 250 Z-Bret 250 da mg tablet mg tablet mg tablet Medical TAKE 2 TAKE 2 TAKE 2 Group TABLETS TABLETS TABLETS (500 MG) BY (500 MG) BY (500 MG) ORAL ROUTE ORAL ROUTE BY ORAL ONCE DAILY ONCE DAILY ROUTE ONCE FOR 1 DAY FOR 1 DAY DAILY FOR THEN 1 THEN 1 1 DAY THEN TABLET (250 TABLET (250 1 TABLET MG) BY ORAL MG) BY ORAL (250 MG) ROUTE ONCE ROUTE ONCE BY ORAL DAILY FOR 4 DAILY FOR 4 ROUTE ONCE DAYS DAYS DAILY FOR 4 DAYS Vital Signs Vital Name Observation Time Observation Value Comments Source BP Diastolic 2018-06-25 00:00:00 73 mm[Hg] [facility] Height 2018-06-25 00:00:00 64 [in_i] [facility] BMI (Body Mass 2018-06-25 00:00:00 38.1 kg/m2 [facility] [place] [facility]) Group BP Systolic 2018-06-25 00:00:00 143 mm[Hg] [facility] Body Weight 2018-06-25 00:00:00 3555 [oz_av] [facility] Procedures This patient has no known procedures. Plan of Care Planned Activity Planned Date Details Comments Source Future Scheduled 2020-01-18 INFLUENZA VACCINE [facility] 00:00:00 [code = INFLUENZA VACCINE] Future Scheduled 2014 Screening for [facility] thodist Test 00:00:00 malignant neoplasm of cervix (procedure) [code = 776838187] Encounters Start End Encounter Admission Attending Care Care Encounter Source Date/Time Date/Time Type Type Clinicians Facility Department ID 2019-09-16 2019-09-16 [employer] Vertical Ian Flores [facility] [id number] 13:01:46 13:16:46 Visit Lab Main [place] [id number] [place] [id number] Professio [id number] 2019-09-13 2019-09-13 [employer] Vertical Ian Flores [facility] [id number] 12:15:28 12:30:28 Visit Lab Main [place] [id number] [place] [id number] Professio [id number] [address] 2018-06-25 2018-06-25 [facility] [place] - [id number] [facility] 00:00:00 00:00:00 Kimo Mcnamara, Medical Medical MD: [address] [place] [address], [facility] [address], [place] [address] , Ph. Results This patient has no known results.
--- OUTSIDE RECORDS SUMMARY | 2019-12-13 08:58 | XMS REPORT | Summary of Care ---
:1995 Author Organization [facility] Address [address] [place] [address] Care Team Providers Name Role Phone Casandra Monte Primary Care Provider Reason for Visit Reason Comments LAB WORK Auth/Cert Status Reason Specialty Diagnoses / Procedures Referred By C ontact Referred To Contact Phlebotomy Procedures Adc Pob Lab Draw Work up Professional Office CBC with Diff Building HCG Rodolfo Preg [address] [place] [address] flo [address], [address] [place] [address] Phone: Fax: Encounter Details Date Type Department Care Team Description 09/13/2019 Supervisor Diagnostic Visit [facility] Juliette Taylor MD [address] [place] [address] [address] [place] [address] examination or test, positive result; Professional Office Pob, Adc Lab Main Abdominal cramping Building Phlebotomy Lab Professional Office Building [address] [place] [address] , [address] [place] [address] Allergies Active Allergy Reactions Severity Noted Date Comments Nickel Hives 08/27/2014 documented as of this encounter (statuses as of 09/14/2019) Medications Medication Sig Dispensed Refills Start Date End Date Status vit Take by mouth. 0 A ctive calc,iron,folic ( VITAMIN ORAL) documented as of this encounter (statuses as of 09/14/2019) Active Problems Problem Noted Date Abdominal cramping 09/13/2019 Morbid obesity with body mass index of 40.0-49.9 09/11 Abnormal genetic test in 09/07/2014 Estimated Date of Delivery Comments Yes 05/10/2020 Based on last menstr ual period of 08/04/2019 (Exact Date) documented as of this encounter (statuses as of 09/14/2019) Social History Tobacco Use Types Packs/Day Years Used Date Never Smoker Smokeless Tobacco: Never Used Alcohol Use Drinks/Week oz/Week Comments Yes Alcohol Habits Answer Date Recorded How often do you have a drink containing alcohol? Monthly or less 09/12/2019 How many drinks containing alcohol do you have on a Not aske d typical day when you are drinking? How often do you have six or more drinks on one Not asked occasion? Estimated Date of Delivery Comments Yes 05/10/2020 Based on last menstr ual period of 08/04/2019 (Exact Date) Sex Assigned at Date Recorded Not on file Job Start Date Occupation Industry Not on file Not on file Not on file Travel History Travel Start Travel End No recent travel history available. documented as of this encounter Last Filed Vital Signs Not on filedocumented in this encounter Plan of Treatment Health Maintenance Due Date Last Done Comments VARICELLA VACCINES (1 of 2 - 1994 2-dose childhood series) DTaP,Tdap,and Td Vaccines (1 - 2004 Tdap) HPV VACCINES (1 - Female 2-dose 2004 series) PAP SMEAR 2014 INFLUENZA VACCINE (#1) 2019 PNEUMOCOCCAL 0-64 YEARS COMBINED Aged Out No longer eligible based on SERIES patient's age to complete this topic documented as of this encounter Procedures Procedure Name Priority Date/Time Associated Diagnosis Comme nts CBC WITH DIFFERENTIAL Routine 09/13/2019 12:26 Abdominal cramp ing Results for this PM CDT procedure are i n the results section. CBC WITH DIFFERENTIAL Routine 09/13/2019 12:26 Abdominal cramp ing Results for this PM CDT procedure are i n the results section. TOTAL BETA HCG ASSAY Routine 09/13/2019 12:26 Res ults for this PM CDT examination or test, procedu re are in positive result the results Abdominal cramping section. HB ABO GROUPING Routine 09/13/2019 12:24 Abdominal cramping Re sults for this PM CDT procedure are i n the results section. documented in this encounter Results CBC WITH DIFFERENTIAL (09/13/2019 12:26 PM CDT) [facility] nature WBC 9.57 4.30 - 11.10 [facility] 10*3/L [facility] RBC 4.08 3.93 - 5.25 [facility] 10*6/L [facility] HGB 11.9 11.6 - 15.0 g/dL [facility] HCT 35.8 35.7 - 45.2 % [facility] MCV 87.7 80.6 - 95.5 fL [facility] MCH 29.2 25.9 - 32.8 pg [facility] MCHC 33.2 31.6 - 35.1 g/dL [facility] RDW-SD 42.2 39.0 - 49.9 fL [facility] RDW-CV 13.2 12.0 - 15.5 % [facility] PLT 231 166 - 358 [facility] 10*3/L [facility] MPV 10.0 9.5 - 12.9 fL [facility] NRBC/100 WBC 0.0 0.0 - 10.0 /100 [facility] W[address]s [facility] NRBC x10^3 <0.01 10*3/L [facility] GRAN MAT (NEUT) % 66.6 % [facility] IMM GRAN % 0.30 % [facility] LYMPH % 23.9 % [facility] MONO % 7.8 % [facility] EOS % 1.1 % [facility] BASO % 0.3 % [facility] GRAN MAT x10^3(ANC) 6.36 1.88 - 7.09 [facility] 10*3/uL HOS[facility]ITAL LAB[facility] IMM GRAN x10^3 0.03 0.00 - 0.06 [facility] 10*3/uL [facility] LYMPH x10^3 2.29 1.32 - 3.29 [facility] 10*3/uL [facility] MONO x10^3 0.75 0.33 - 0.92 [facility] 10*3/uL [facility] EOS x10^3 0.11 0.03 - 0.39 [facility] 10*3/uL [facility] BASO x10^3 0.03 0.01 - 0.07 [facility] 10*3/uL [facility]OS[facility]ITAL [facility] Specimen Blood Performing Organization Address City/State/Zipcode Phone Number [facility] CLIA: [id number], [address] [place], [place] [address] [facility] HCG, QUANTITATIVE, (09/13/2019 12:26 PM CDT) Pathologist Sig nature BETA HCG 2,367.80 Non- female [facility] and male patients: [facility]OSPITAL [facility] <5 mIU/mL Specimen Blood Narrative Performed At [facility] Gestational Age Range (mIU/mL) 1-10 Weeks [id number] 11-15 Weeks [id number] 16-22 Weeks [id number] 23-40 Weeks [id number] Biotin has been reported to cause a negative bias, interpret results relative to patient's use of biotin. Performing Organization Address [facility] Phone Number [facility] CLIA: [id number], [address] [place] [address] [facility] WORKUP, BLOOD BANK (09/13/2019 12:24 PM CDT) Pathologist Sig nature ABO & RH O Positive LAB Comment: Performed at [facility] Laboratory Services - [facility] Blood Bank [address] [place] [phone] Toll Free: [phone] CLIA No. [id number] IAT Negative LAB Comment: Performed at [facility] Laboratory [facility] Blood Bank [address] [place] [phone] Toll Free: [phone] CLIA No. [id number] Specimen Blood - [facility] Performing Organization Address City/State/Zipcode Phone Number BLD LAB documented in this encounter Visit Diagnoses Diagnosis examination or test, positive result Abdominal cramping Abdominal pain, unspecified site documented in this encounter Insurance Payer Benefit Plan / Subscriber ID Effective Dates Phone Addre ss Type Group [facility] MEDICAID OF xxxxxxxxx 2014-Present [phone] [address] Medicaid [place] [id number] [place] [phone] documented as of this encounter
--- OUTSIDE RECORDS SUMMARY | 2019-12-13 08:58 | XMS REPORT | Clinical Summary ---
:1995 Author Organization [facility] Address [address] [place] [address] Care Team Providers Name Role Phone Asked, Pcp Primary Care Provider Unavailable Allergies No Known Allergies Medications Medication Sig Dispensed Refills Start Date End Date Status ondansetron ODT (ZOFRAN Take 1 tablet (4 9 tablet 0 7 Active ODT) 4 MG mg total) by disintegrating tablet mouth every 8 (eight) hours as needed for nausea or vomiting for up to 9 doses. Active Problems Not on file Social History Tobacco Use Types Packs/Day Years Used Date Never Smoker Alcohol Use Drinks/Week oz/Week Comments No Sex Assigned at Date Recorded Not on file Job Start Date Occupation Industry Not on file Not on file Not on file Travel History Travel Start Travel End No recent travel history available. Last Filed Vital Signs Not on file Plan of Treatment Health Maintenance Due Date Last Done Comments CERVICAL CANCER SCREENING 2014 INFLUENZA VACCINE 01/18/2020 Results Not on fileafter 12/12/2018 Advance Directives For more information, please contact: [phone] Type Date Recorded Patient Customer Service Specialist Explanati on Advance Directives, Living Will and Medical Power of Lining Marker
--- OUTSIDE RECORDS SUMMARY | 2019-12-13 08:59 | XMS REPORT | Summary of Care ---
:1995 Author Organization [facility] Address [address] [place] [address] Care Team Providers Name Role Phone Casandra Monte Primary Care Provider Reason for Visit Reason Comments LAB WORK Auth/Cert Status Reason Specialty Diagnoses / Procedures Referred By C ontact Referred To Contact Phlebotomy Diagnoses Abdominal cramping Adc Pob Lab Draw Procedures [facility] Professional Office Building [address] [place] [address] , [address] [place] [address] Phone: Fax: Encounter Details Date Type Department Care Team Description 09/16/2019 Extension Specialist Visit [facility] Juliette Taylor MD [address] [place] [address] [address] [place] [address] examination or test, positive result; Professional Office Pob, Adc Lab Main Abdominal cramping Building Phlebotomy Lab Professional Office Building [address] [place] [address] , [address] [place] [address] Allergies Active Allergy Reactions Severity Noted Date Comments Nickel Hives 08/27/2014 documented as of this encounter (statuses as of 09/16/2019) Medications Medication Sig Dispensed Refills Start Date End Date Status vit Take by mouth. 0 A ctive calc,iron,folic ( VITAMIN ORAL) documented as of this encounter (statuses as of 09/16/2019) Active Problems Problem Noted Date Abdominal cramping 09/13/2019 Morbid obesity with body mass index of 40.0-49.9 09/11 Abnormal genetic test in 09/07/2014 Estimated Date of Delivery Comments Yes 05/10/2020 Based on last menstr ual period of 08/04/2019 (Exact Date) documented as of this encounter (statuses as of 09/16/2019) Social History Tobacco Use Types Packs/Day Years [...] filedocumented in this encounter Plan of Treatment Name Type Priority Associated Diagnoses Date/Ti me HCG, QUANTITATIVE, LAB Routine examination or 09/16/2019 1:08 PM CDT test, positive r esult Abdominal cramping Health Maintenance Due Date Last Done Comments VARICELLA VACCINES (1 of 2 - 1994 2-dose childhood series) DTaP,Tdap,and Td Vaccines (1 - 2004 Tdap) HPV VACCINES (1 - Female 2-dose 2004 series) PAP SMEAR 2014 INFLUENZA VACCINE (#1) 2019 PNEUMOCOCCAL 0-64 YEARS COMBINED Aged Out No longer eligible based on SERIES patient's age to complete this topic documented as of this encounter Results Not on filedocumented in this encounter Visit Diagnoses Diagnosis examination or test, positive result Abdominal cramping Abdominal pain, unspecified site documented in this encounter Insurance Payer Benefit Plan / Subscriber ID Effective Dates Phone Addre ss Type Group [employer] MEDICAID OF xxxxxxxxx 2014-Present [phone] [address] Medicaid [place] [id number] [place] [address] documented as of this encounter
[2019-12-13] MEDS ORDERED: NA CHLORIDE 0.9% 1,000 ML ONE ×2 (09:14→09:52)
[2019-12-13 09:24] LABS: Urine Blood NEGATIVE (NEG); Urine Glucose NEGATIVE (NEG); Urine Protein NEGATIVE (NEG); Urine Specific Gravity 1.025 (1.005-1.030); Urine pH 6.5 (5.0-7.0)
[2019-12-13 09:37] LABS: Absolute Lymphocytes (CBC) 1.8 K/uL (0.7-4.9); Basophils % 0.3 % (0-1.3); Hematocrit 37.7 % (36.0-45.0); Lymphocytes % 18.3 % (15.3-44.8); MPV 9.2 fL (7.6-11.3); RBC Red Blood Cell Count 4.28 M/uL (3.86-4.86)
[2019-12-13 09:40] LABS: ALT/SGPT 15 U/L (12-78); AST/SGOT 11 U/L (15-37); Albumin 2.9 g/dL (3.4-5.0); Alkaline Phosphatase 68 U/L (45-117); BUN Blood Urea Nitrogen 7 mg/dL (7-18); Bicarbonate 22 mmol/L (21-32); Bilirubin Direct < 0.1 mg/dL (0-0.2); Bilirubin Total 0.3 mg/dL (0.2-1.0); Glucose Level 91 mg/dL (74-106); Lipase 97 U/L (73-393); Potassium 3.8 mmol/L (3.5-5.1); Sodium Level 139 mmol/L (136-145)
--- NOTE | 2019-12-13 09:43 | RAD REPORT ---
EXAM DESCRIPTION: US - OB Limited - 12/13/2019 9:30 am CLINICAL HISTORY: ABD CRAMPING, COMPARISON: Transvaginal OB dated 09/09/2019 TECHNIQUE: Limited transabdominal OB sonography performed FINDINGS: A single intrauterine gestation is identified. movement was observed. Heart rate was 148 BPM. No dedicated anatomic measurements performed. No age assessment performed. Gross asse ssment shows no suspicious abnormality to be evident. Internal os is closed. Amniotic fluid volume is normal. Anterior placenta shows no abruption or david nal hematoma. Bilateral adnexa shows no suspicious finding. Ovaries are not clearly seen. Focal uterine wall contra ction was observed during the examination. IMPRESSION: Single intrauterine gestation shows normal heart rate. body and limb movements wer e observed. Internal os appears closed. Anterior placenta is unremarkable and amniotic fluid volume normal.
[2019-12-13] MEDS ORDERED: CEFTRIAXONE/SWI 1gm 1 GM/10 ML SYR ONE (09:52)
--- NOTE | 2019-12-13 10:29 | EDPHYS ---
Physician Documentation [facility] Name: Marly Cabrera Age: 24 yrs Sex: Female : 1995 Arrival Date: 12/13/2019 Time: 07:59 Bed 15 Private MD: ED Physician Izaiah Celeste HPI: 12/12 09:01 This 24 yrs old Female presents to ER via Ambulatory with complaints of apolonia Abdominal Cramping - 19 wks preg, Back Pain. 09:01 The patient presents to the emergency department with possible uterine contractions, apolonia this morning, abdominal pain, of the right lower quadrant and left lower quadrant. The estimated gestational age is 19 weeks. course: care: private OB physician. Previous pregnancies: in previous pregnancies patient has had . Associated signs and symptoms: The patient has no apparent associated signs or symptoms. The patient has not experienced similar symptoms in the past. 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 - Social history:: Smoking status: Patient denies any tobacco usage or history of. - Family history:: not pertinent. ROS: 09:01 Constitutional: Negative for fever, chills, and weight loss, Eyes: Negative for injury, apolonia pain, redness, and discharge, ENT: Negative for injury, pain, and discharge, Neck: Negative for injury, pain, and swelling, Cardiovascular: Negative for chest pain, palpitations, and edema, Respiratory: Negative for shortness of breath, cough, wheezing, and pleuritic chest pain, Back: Negative for injury and pain, : Negative for injury, bleeding, discharge, and swelling, MS/Extremity: Negative for injury and deformity, Skin: Negative for injury, rash, and discoloration, Neuro: Negative for headache, weakness, numbness, tingling, and seizure, Psych: Negative for depression, anxiety, suicide ideation, homicidal ideation, and hallucinations, Allergy/Immunology: Negative for hives, rash, and allergies, Endocrine: Negative for neck swelling, polydipsia, polyuria, polyphagia, and marked weight changes, Hematologic/Lymphatic: Negative for swollen nodes, abnormal bleeding, and unusual bruising. 09: Abdomen/GI: Positive for abdominal distension. Exam: 09: Constitutional: This is a well developed, well nourished patient who is awake, alert, apolonia and in no acute distress. Head/Face: Normocephalic, atraumatic. Eyes: Pupils equal round and reactive to light, extra-ocular motions intact. Lids and lashes normal. Conjunctiva and sclera are non-icteric and not injected. Cornea within normal limits. Periorbital areas with no swelling, redness, or edema. ENT: Nares patent. No nasal discharge, no septal abnormalities noted. Tympanic membranes are normal and external auditory canals are clear. Oropharynx with no redness, swelling, or masses, exudates, or evidence of obstruction, uvula midline. Mucous membranes moist. Neck: Trachea midline, no thyromegaly or masses palpated, and no cervical lymphadenopathy. Supple, full range of motion without nuchal rigidity, or vertebral point tenderness. No Meningismus. Chest/axilla: Normal chest wall appearance and motion. Nontender with no deformity. No lesions are appreciated. Cardiovascular: Regular rate and rhythm with a normal S1 and S2. No gallops, murmurs, or rubs. Normal PMI, no JVD. No pulse deficits. Respiratory: Lungs have equal breath sounds bilaterally, clear to auscultation and percussion. No rales, rhonchi or wheezes noted. No increased work of breathing, no retractions or nasal flaring. Back: No spinal tenderness. No costovertebral tenderness. Full range of motion. Female : Normal external genitalia. Skin: Warm, dry with normal turgor. Normal color with no rashes, no lesions, and no evidence of cellulitis. MS/ Extremity: Pulses equal, no cyanosis. Neurovascular intact. Full, normal range of motion. Neuro: Awake and alert, GCS 15, oriented to person, place, time, and situation. Cranial nerves II-XII grossly intact. Motor strength 5/5 in all extremities. Sensory grossly intact. Cerebellar exam normal. Normal gait. Psych: Awake, alert, with orientation to person, place and time. Behavior, mood, and affect are within normal limits. : Abdomen/GI: Inspection: distension, Bowel sounds: normal, Palpation: nontender, Liver: no appreciated palpable abnormalities, Hernia: not appreciated. 09:01 Abdomen/GI: no lof, no vag bleeding. [facility] Vital Signs: 08:06 BP 107 / 87; Pulse 87; Resp 16; Temp 98.3; Pulse Ox 96% on R/A; Weight 97.52 kg; Height iw 5 ft. 3 in. (160.02 cm); Pain 6/10; 09:15 BP 112 / 87; Pulse 86; Resp 16; Pulse Ox 98% ; jl7 09:48 BP 104 / 59; Pulse 88; Resp 17; Pulse Ox 98% ; jl7 10:44 BP 107 / 65; Pulse 56; Resp 17; Pulse Ox 100% ; jl7 11:32 BP 128 / 84; Pulse 61; Resp 17; Pulse Ox 100% ; Pain 0/10; jl7 08:06 Body Mass Index 38.09 (97.52 kg, 160.02 cm) iw MDM: 08:13 Patient medically screened. [facility] 09:13 Differential diagnosis: [place] villagran. Data reviewed: vital signs, nurses notes, lab [facility] test result(s), radiologic studies, ultrasound. 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 rate is 87 beats/min, rhythm is normal sinus rhythm, Pulse oximetry: on room air is 96 %. Test interpretation: by ED physician or midlevel provider:. Counseling: I had a detailed discussion with the patient and/or guardian regarding: the historical points, exam findings, and any diagnostic results supporting the discharge/admit diagnosis, lab results, the need for outpatient follow up, for definitive care, an OB/Gyne specialist. 10:28 ED course: better, no ctx, will rest, push fluids, return if worsens. [facility] 12/12 08:57 Order name: Basic Metabolic Panel; Complete Time: 09:41 [facility] 12/12 08:57 Order name: CBC with Diff; Complete Time: 09:41 [facility] 12/12 08:57 Order name: LFT's; Complete Time: 09:41 [facility] 12/12 08:57 Order name: Lipase; Complete Time: 09:41 [facility] 12/12 08:57 Order name: Urine Culture [facility] 12/12 09:21 Order name: Urine Dipstick--Ancillary (enter results); Complete Time: 09:41 12/12 08:57 Order name: IV Saline Lock; Complete Time: 09:41 [facility] 12/12 08:57 Order name: Labs collected and sent; Complete Time: 09:41 [facility] 12/12 08:57 Order name: NPO; Complete Time: 09:41 [facility] 12/12 08:57 Order name: US OB Limited; Complete Time: 09:44 [facility] 12/12 09:21 Order name: Urine --Ancillary (enter results); Complete Time: 09:41 12/12 08:57 Order name: Urine Dipstick-Ancillary (obtain specimen); Complete Time: 09:41 [facility] Administered Medications: 09:41 Drug: NS 0.9% 1000 ml Route: IV; Rate: 1 bolus; Site: right hand; jl7 10:45 Follow up: Response: No adverse reaction; IV Status: Completed infusion; IV Intake: jl7 1000ml 09:47 Drug: NS 0.9% 1000 ml Route: IV; Rate: 1 bolus; Site: right hand; jl7 11:32 Follow up: Response: No adverse reaction; IV Status: Completed infusion; IV Intake: jl7 1000ml 09:47 Drug: Rocephin 1 grams Route: IV; Rate: per protocol; Site: right hand; jl7 09:50 Follow up: Response: No adverse reaction; IV Status: Completed infusion jl7 Disposition: 12/13/19 10:29 Discharged to Home. Impression: related conditions, unspecified, second trimester, Volume depletion, Urinary tract infection, site not specified. - Condition is Stable. - Discharge Instructions: Abdominal Pain During , Urinary Tract Infection, Adult, Urinary Tract Infection, Adult, Exxg-qy-Jvhh, Abdominal Pain During , Ejxw-ww-Ujev, Second Trimester of , Jitw-mx-Nhny. - Prescriptions for Vitamin 27- 0.8 mg Oral Tablet - take 1 tablet by ORAL route once daily; 30 tablet. Augmentin 875- 125 mg Oral Tablet - take 1 tablet by ORAL route every 12 hours for 7 days; 14 tablet. - Medication Reconciliation Form, Thank You Letter, Antibiotic Education, Prescription Opioid Use form. - Follow up: Private Physician; When: 2 - 3 days; Reason: Recheck today's complaints, Continuance of care, Re-evaluation by your physician. Follow up: Edis Jin; When: 2 - 3 days; Reason: Recheck today's complaints, Re-evaluation by your physician. - Problem is new. - Symptoms have improved. Signatures: Dispatcher [employer] Izaiah Jefferson MD MD cha Williams, Irene, RN Barbra Goodman RN RN jl7 Corrections: (The following items were deleted from the chart) 11:33 10:29 12/13/2019 10:29 Discharged to Home. Impression: related conditions, jl7 unspecified, second trimester; Volume depletion; Urinary tract infection, site not specified. Condition is Stable. Discharge Instructions: Abdominal Pain During , Abdominal Pain During , Teqa-sw-Vqjp, Second Trimester of , Oxaw-kn-Olmr, Urinary Tract Infection, Adult, Urinary Tract Infection, Adult, Mylk-we-Yppj. Prescriptions for Vitamin 27-0.8 mg Oral Tablet - take 1 tablet by ORAL route once daily; 30 tablet, Augmentin 875-125 mg Oral Tablet - take 1 tablet by ORAL route every 12 hours for 7 days; 14 tablet. and Forms are Medication Reconciliation Form, Thank You Letter, Antibiotic Education, Prescription Opioid Use. Follow up: Private Physician; When: 2 - 3 days; Reason: Recheck today's complaints, Continuance of care, Re-evaluation by your physician. Follow up: Edis Jin; When: 2 - 3 days; Reason: Recheck today's complaints, Re-evaluation by your physician. Problem is new. Symptoms have improved. apolonia
--- NOTE | 2019-12-13 10:29 | ER ---
Nurse's Notes [facility] Name: Marly Cabrera Age: 24 yrs Sex: Female : 1995 Arrival Date: 12/13/2019 Time: 07:59 Bed 15 Private MD: Diagnosis: related conditions, unspecified, second trimester;Volume depletion;Urinary tract infection, site not specified Presentation: 12/12 08:06 Chief complaint: Patient states: has been cramping in lower abd and back for a few iw days, is 19 weeks , denies vaginal bleeding, G4, P3 , pt sees in OB in [place]. Coronavirus screen: Proceed with normal triage. Patient denies a cough. Patient denies shortness of breath or difficulty breathing. Patient denies measured and/or subjective temperature greater than 100.4F prior to today's visit. Patient denies travel on a cruise ship or to a country the [facility] currently lists as an affected area. Patient denies contact with known and/or suspected case of COVID-19. Ebola Screen: Patient negative for fever greater than or equal to 101.5 degrees Fahrenheit, and additional compatible Ebola Virus Disease symptoms Patient denies exposure to infectious person. Patient denies travel to an Ebola-affected area in the 21 days before illness onset. No symptoms or risks identified at this time. Initial Sepsis Screen: Does the patient meet any 2 criteria? No. Patient's initial sepsis screen is negative. Does the patient have a suspected source of infection? No. Patient's initial sepsis screen is negative. Risk Assessment: Do you want to hurt yourself or someone else? Patient reports no desire to harm self or others. Onset of symptoms was December 09, 2019. 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 - Social history:: Smoking status: Patient denies any tobacco usage or history of. - Family history:: not pertinent. Screenin:24 Abuse screen: Denies threats or abuse. Denies injuries from another. Nutritional jl7 screening: No deficits noted. Tuberculosis screening: No symptoms or risk factors identified. Fall Risk IV access (20 points). Total Russo Fall Scale indicates No Risk (0-24 pts). Assessment: 09:00 General: Appears in no apparent distress. uncomfortable, Behavior is calm, cooperative, jl7 appropriate for age. Pain: Complains of pain in suprapubic area Pain radiates to low back area Pain currently is 6 out of 10 on a pain scale. Quality of pain is described as crampy, Is intermittent. Neuro: Level of Consciousness is awake, alert, obeys commands, Oriented to person, place, time, situation. Cardiovascular: Patient's skin is warm and dry. Respiratory: Airway is patent Respiratory effort is even, unlabored, Respiratory pattern is regular, symmetrical. GI: Abdomen is non-distended. : Denies burning with urination, pain with urination. Derm: Skin is pink, warm \T\ dry. 10:00 Reassessment: Patient appears in no apparent distress at this time. No changes from jl7 previously documented assessment. Patient and/or family updated on plan of care and expected duration. Pain level reassessed. Patient is alert, oriented x 3, equal unlabored respirations, skin warm/dry/pink. 10:44 Reassessment: Patient appears in no apparent distress at this time. Patient is alert, jl7 oriented x 3, equal unlabored respirations, skin warm/dry/pink. Pt will be discharged once fluids are done infusing Patient states feeling better. Vital Signs: 08:06 BP 107 / 87; Pulse 87; Resp 16; Temp 98.3; Pulse Ox 96% on R/A; Weight 97.52 kg; Height iw 5 ft. 3 in. (160.02 cm); Pain 6/10; 09:15 BP 112 / 87; Pulse 86; Resp 16; Pulse Ox 98% ; jl7 09:48 BP 104 / 59; Pulse 88; Resp 17; Pulse Ox 98% ; jl7 10:44 BP 107 / 65; Pulse 56; Resp 17; Pulse Ox 100% ; jl7 11:32 BP 128 / 84; Pulse 61; Resp 17; Pulse Ox 100% ; Pain 0/10; jl7 08:06 Body Mass Index 38.09 (97.52 kg, 160.02 cm) iw ED Course: 07:59 Patient arrived in ED. as 08:08 Triage completed. iw 08:08 Arm band placed on. iw 08:13 Izaiah Celeste MD is Attending Physician. apolonia 08:35 Barbra Dorsey RN is Primary Nurse. jl7 09:24 Patient has correct armband on for positive identification. Bed in low position. Call jl7 light in reach. Side rails up X 1. Pulse ox on. NIBP on. 09:24 Initial lab(s) drawn, by mn, sent to lab. Urine collected: clean catch specimen, jl7 cloudy. Inserted saline lock: 20 gauge in right hand, using aseptic technique. Blood collected. 09:30 US OB Limited In Process Unspecified. EDMS 10:29 Edis Jin MD is Referral Physician. apolonia 10:44 No provider procedures requiring assistance completed. jl7 11:32 IV discontinued, intact, bleeding controlled, No redness/swelling at site. Pressure jl7 dressing applied. Administered Medications: 09:41 Drug: NS 0.9% 1000 ml Route: IV; Rate: 1 bolus; Site: right hand; jl7 10:45 Follow up: Response: No adverse reaction; IV Status: Completed infusion; IV Intake: jl7 1000ml 09:47 Drug: NS 0.9% 1000 ml Route: IV; Rate: 1 bolus; Site: right hand; jl7 11:32 Follow up: Response: No adverse reaction; IV Status: Completed infusion; IV Intake: jl7 1000ml 09:47 Drug: Rocephin 1 grams Route: IV; Rate: per protocol; Site: right hand; jl7 09:50 Follow up: Response: No adverse reaction; IV Status: Completed infusion jl7 Intake: 10:45 IV: 1000ml; Total: 1000ml. jl7 11:32 IV: 1000ml; Total: 2000ml. jl7 Outcome: 10:29 Discharge ordered by . apolonia 11:32 Discharged to home ambulatory. jl7 11:32 Condition: stable 11:32 Discharge instructions given to patient, Instructed on discharge instructions, follow up and referral plans. medication usage, Demonstrated understanding of instructions, follow-up care, medications, Prescriptions given X 2. 11:33 Patient left the ED. jl7 Signatures: Dispatcher QRGL EDMS Booker, Izaiah, MD MD apolonia Cristopher, Ashleigh as Bladimir, Bree, ZEB RN Barbra Ireland RN RN jl7
[2019-12-13 12:07] VITALS: BP 128/84; O2SAT 100
== END 2019-12-13 11:33 | disposition home or self-care (01) ==
LOC: ER 07:57
DX: O23.42 Unspecified infection of urinary tract in pregnancy, second trimester (principal); Z3A.19 19 weeks gestation of pregnancy; E86.9 Volume depletion, unspecified
CPT/HCPCS: 96361; 87088; 85025; 87086; 80048; 36415; 81025; 80076; 81003; 83690; 76815; 96374; 99284; J0696; J7030 ×2

== ENCOUNTER 2019-12-25 15:13 | Emergency (ER) | payer OTHER ==
--- OUTSIDE RECORDS SUMMARY | 2019-12-25 15:15 | XMS REPORT | Clinical Summary ---
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
--- OUTSIDE RECORDS SUMMARY | 2019-12-25 15:15 | XMS REPORT | Continuity of Care Document ---
:1995 Author Organization [facility] t Address [address] [place] [address] Care Team Providers Name Role Phone Asked, [...] Date Quantity Comments Source Sex Assigned At [facility] ethodist Alcohol intake 2017-03-29 2017-03-29 Current [facility] thodist 00:00:00 00:00:00 non-drinker of alcohol (finding) Smoking Status Start Date Stop Date Source Former Smoker [facility] Never smoker [facility] Medications Ordered Filled Start Stop Current Ordering [...] Source BP Diastolic 2018-06-25 00:00:00 73 mm[Hg] [facility] Height 2018-06-25 00:00:00 64 [in_i] [facility] BMI (Body Mass 2018-06-25 00:00:00 38.1 kg/m2 [facility]) Group BP Systolic 2018-06-25 00:00:00 143 mm[Hg] [facility] Body Weight 2018-06-25 00:00:00 3555 [oz_av] [facility] Procedures This patient has no known procedures. Plan of Care Planned Activity Planned Date Details Comments Source Future Scheduled 2020-01-18 INFLUENZA VACCINE [facility] 00:00:00 [code = INFLUENZA VACCINE] Future Scheduled 2014 Screening for [facility] thodist Test 00:00:00 malignant neoplasm of cervix (procedure) [code = 452934093] Encounters Start End Encounter Admission Attending Care Care Encounter Source Date/Time Date/Time Type Type Clinicians Facility Department ID 2019-09-16 2019-09-16 Theatrical Dresser Sandra [facility] [id number] 13:01:46 13:16:46 Visit Lab Main [place] [id number] [place] [id number] [facility] [phone] [address] 2019-09-13 2019-09-13 Theatrical Dresser Ian Flores [facility] [id number] 12:15:28 12:30:28 Visit Lab Main [place] [id number] [place] [id number] [facility] [id number] [address] 2018-06-25 2018-06-25 Formerly [facility] [place] - [id number] [facility] 00:00:00 00:00:00 Kimo Mcnamara, Medical Medical MD: [address] [place] [address], [facility] [address], [place] [address] , Ph. Results This patient has no known results.
--- NOTE | 2019-12-25 20:51 | RAD REPORT ---
EXAM DESCRIPTION: RAD - Chest Single View - 12/25/2019 7:54 pm CLINICAL HISTORY: COUGH COMPARISON: None TECHNIQUE: AP portable chest image was obtained 12/25/2019 7:54 pmabdominal shielding was utilized . FINDINGS: Lungs are clear. Heart and vasculature are normal. No measurable pleural effusion and no p neumothorax. No acute bony abnormality seen. No acute aortic findings suspected. IMPRESSION: No acute cardiopulmonary process.
--- NOTE | 2019-12-25 20:57 | ER ---
Nurse's Notes [facility] Name: Marly Cabrera Age: 24 yrs Sex: Female : 1995 Arrival Date: 12/25/2019 Time: 15:14 Bed 19 Private MD: Diagnosis: Acute upper respiratory infection, unspecified; related conditions, unspecified, second trimester;Fever, unspecified Presentation: 12/24 15:19 Chief complaint: Patient states: cough, congestion and shortness of breath that began 4 ss days ago. Pt reports initially she had a fever of 101.3, but has not had a fever in 2 days. Coronavirus screen: Patient reports a cough. Patient denies shortness of breath or difficulty breathing. Patient reports a measured and/or subjective temperature greater than 100.4F. Patient denies travel on a cruise ship or to a country the [facility] currently lists as an affected area. Patient reports contact with known and/or suspected case of COVID-19. Ebola Screen: Patient denies exposure to infectious person. Patient denies travel to an Ebola-affected area in the 21 days before illness onset. Resp Distress? No respiratory distress is noted at this time. Initial Sepsis Screen: Does the patient meet any 2 criteria? No. Patient's initial sepsis screen is negative. Does the patient have a suspected source of infection? No. Patient's initial sepsis screen is negative. Risk Assessment: Do you want to hurt yourself or someone else? Patient reports no desire to harm self or others. Onset of symptoms was December 21, 2019. 15:19 Method Of Arrival: Ambulatory ss 15:19 Acuity: DILLON 4 ss Triage Assessment: 19:30 General: Appears in no apparent distress. comfortable, Behavior is calm, cooperative, vc appropriate for age. Pain: Denies pain. Respiratory: Reports shortness of breath cough that is Breath sounds are clear. 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 - Social history:: Smoking status: Patient denies any tobacco usage or history of. - Family history:: not pertinent. Screenin:30 Abuse screen: Denies threats or abuse. Nutritional screening: No deficits noted. vc Tuberculosis screening: No symptoms or risk factors identified. Fall Risk None identified. Assessment: 20:30 Cardiovascular: Capillary refill < 3 seconds. Respiratory: Airway is patent Respiratory vc effort is even, unlabored, Respiratory pattern is regular, symmetrical. 20:30 General: Appears in no apparent distress. comfortable, Behavior is calm, cooperative, vc appropriate for age. Pain: Denies pain. Respiratory: Reports shortness of breath at rest cough that is productive, Respiratory: Breath sounds are clear bilaterally. GI: No signs and/or symptoms were reported involving the gastrointestinal system. : No signs and/or symptoms were reported regarding the genitourinary system. EENT: No signs and/or symptoms were reported regarding the EENT system. 21:15 Reassessment: Patient appears in no apparent distress at this time. Patient and/or vc family updated on plan of care and expected duration. Pain level reassessed. Patient is alert, oriented x 3, equal unlabored respirations, skin warm/dry/pink. Vital Signs: 15:19 BP 137 / 86; Pulse 92; Resp 16; Temp 97.0(TE); Pulse Ox 97% on R/A; Weight 117.03 kg; ss Height 5 ft. 3 in. (160.02 cm); Pain 5/10; 15:19 Body Mass Index 45.70 (117.03 kg, 160.02 cm) ED Course: 15:14 Patient arrived in ED. fj1 15:21 Triage completed. 15:22 Arm band placed on left wrist. 19:20 Ilda Suarez, RN is Primary Nurse. vc 19:26 Izaiah Celeste MD is Attending Physician. [facility] 19:54 Chest Single View XRAY In Process Unspecified. EDMS 19:59 Flu and/or RSV swab sent to lab. X-ray(s) taken. Swabbed for COVID-19. jp3 20:30 Patient has correct armband on for positive identification. Bed in low position. Call vc light in reach. 21:28 No provider procedures requiring assistance completed. Patient did not have IV access vc during this emergency room visit. Administered Medications: 21:27 Drug: Zithromax 500 mg Route: PO; vc Outcome: 20:56 Discharge ordered by . apolonia 21:25 Discharged to home ambulatory. vc 21:25 Condition: good 21:25 Discharge instructions given to patient, Instructed on discharge instructions, follow up and referral plans. medication usage, Demonstrated understanding of instructions, follow-up care, medications, Prescriptions given X 1. 21:28 Patient left the ED. Addendum: 12/30/2019 10:35 Addendum: COVID-19 Result: Negative result given to RN to notify pt. Contacted by: Todd Elise RN. Notified pt of negative COVID 19 swab results. Pt advised that even with a negative test result they should remain in isolation until symptom free for 3 days without medication. Pt also advised to return to the ED for worsening symptoms. Signatures: Dispatcher [employer] EDTerra Martel, RN RN dmIzaiah Varela MD MD cha Smirch, Shelby, RN RN Melvin Forman jp3 Ilda Suarez RN RN vc James, Frank fj1
--- NOTE | 2019-12-25 20:57 | EDPHYS ---
Physician Documentation [facility] Name: Marly Cabrera Age: 24 yrs Sex: Female : 1995 Arrival Date: 12/25/2019 Time: 15:14 Bed 19 Private MD: ED Physician Izaiah Celeste HPI: 12/24 20:49 This 24 yrs old Female presents to ER via Ambulatory with complaints of apolonia Cough, Congestion, Shortness Of Breath, 20WKS PREG. 20:49 The patient or guardian reports cough, described as mild, difficulty breathing, flu apolonia symptoms, arthralgias, low-grade fever, myalgias. Onset: The symptoms/episode began/occurred 3 day(s) ago. Severity of symptoms: At their worst the symptoms were mild, in the emergency department the symptoms are unchanged. Modifying factors: The symptoms are alleviated by nothing, the symptoms are aggravated by nothing. Associated signs and symptoms: The patient has no apparent associated signs or symptoms. The patient has not experienced similar symptoms in the past. 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 - Social history:: Smoking status: Patient denies any tobacco usage or history of. - Family history:: not pertinent. ROS: 20:49 Eyes: Negative for injury, pain, redness, and discharge, ENT: Negative for injury, apolonia pain, and discharge, Neck: Negative for injury, pain, and swelling, Cardiovascular: Negative for chest pain, palpitations, and edema, Abdomen/GI: Negative for abdominal pain, nausea, vomiting, diarrhea, and constipation, Back: Negative for injury and pain, : Negative for injury, bleeding, discharge, and swelling, MS/Extremity: Negative for injury and deformity, Skin: Negative for injury, rash, and discoloration, Neuro: Negative for headache, weakness, numbness, tingling, and seizure, Psych: Negative for depression, anxiety, suicide ideation, homicidal ideation, and hallucinations, Allergy/Immunology: Negative for hives, rash, and allergies, Endocrine: Negative for neck swelling, polydipsia, polyuria, polyphagia, and marked weight changes, Hematologic/Lymphatic: Negative for swollen nodes, abnormal bleeding, and unusual bruising. 20:49 Respiratory: Positive for cough, shortness of breath, at rest. Exam: 20:49 Constitutional: This is a well developed, well nourished patient who is awake, alert, apolonia and in no acute distress. Head/Face: Normocephalic, atraumatic. Eyes: Pupils equal round and reactive to light, extra-ocular motions intact. Lids and lashes normal. Conjunctiva and sclera are non-icteric and not injected. Cornea within normal limits. Periorbital areas with no swelling, redness, or edema. ENT: Nares patent. No nasal discharge, no septal abnormalities noted. Tympanic membranes are normal and external auditory canals are clear. Oropharynx with no redness, swelling, or masses, exudates, or evidence of obstruction, uvula midline. Mucous membranes moist. Neck: Trachea midline, no thyromegaly or masses palpated, and no cervical lymphadenopathy. Supple, full range of motion without nuchal rigidity, or vertebral point tenderness. No Meningismus. Chest/axilla: Normal chest wall appearance and motion. Nontender with no deformity. No lesions are appreciated. Cardiovascular: Regular rate and rhythm with a normal S1 and S2. No gallops, murmurs, or rubs. Normal PMI, no JVD. No pulse deficits. Abdomen/GI: Soft, non-tender, with normal bowel sounds. No distension or tympany. No guarding or rebound. No evidence of tenderness throughout. Back: No spinal tenderness. No costovertebral tenderness. Full range of motion. Skin: Warm, dry with normal turgor. Normal color with no rashes, no lesions, and no evidence of cellulitis. MS/ Extremity: Pulses equal, no cyanosis. Neurovascular intact. Full, normal range of motion. Neuro: Awake and alert, GCS 15, oriented to person, place, time, and situation. Cranial nerves II-XII grossly intact. Motor strength 5/5 in all extremities. Sensory grossly intact. Cerebellar exam normal. Normal gait. 20:49 Respiratory: the patient does not display signs of respiratory distress, Respirations: normal, Breath sounds: are clear throughout, no acute changes, Respiratory rate: 16 20:51 : CVA tenderness, is absent, Gravid exam: Fundal height: consistent with gestational apolonia age. 20:51 Musculoskeletal/extremity: Circulation is intact in all extremities. Sensation intact. DVT Exam: No signs of deep vein thrombosis. no pain, no swelling, no tenderness, negative Homans' sign noted on exam, no appreciated bluish discoloration, no erythema, no increased warmth. Vital Signs: 15:19 BP 137 / 86; Pulse 92; Resp 16; Temp 97.0(TE); Pulse Ox 97% on R/A; Weight 117.03 kg; ss Height 5 ft. 3 in. (160.02 cm); Pain 5/10; 15:19 Body Mass Index 45.70 (117.03 kg, 160.02 cm) ss MDM: 19:28 Patient medically screened. [facility] 20:53 Data reviewed: vital signs, nurses notes, lab test result(s), radiologic studies, plain apolonia films. Data interpreted: equipment monitor phototypesetting: rate is 92 beats/min, Pulse oximetry: on room air is 97 %. Test interpretation: by ED physician or midlevel provider: plain radiologic studies. Counseling: I had a detailed discussion with the patient and/or guardian regarding: the historical points, exam findings, and any diagnostic results supporting the discharge/admit diagnosis, lab results, radiology results, the need for outpatient follow up, for definitive care, an OB/Gyne specialist. ED course: no toxic, well hydrated, not hypoxia. 12/24 19:28 Order name: Flu; Complete Time: 20:49 [facility] 12/24 19:28 Order name: COVID-19 [facility] 12/24 19:28 Order name: Chest Single View XRAY [facility] 12/24 20:35 Order name: Urine Dipstick--Ancillary (enter results) [facility] 12/24 20:35 Order name: Urine --Ancillary (enter results) [facility] 12/24 19:28 Order name: Urine Dipstick-Ancillary (obtain specimen); Complete Time: 20:34 [facility] 12/24 19:28 Order name: Urine Test (obtain specimen); Complete Time: 20:34 [facility] 12/24 20:56 Order name: FHT's; Complete Time: 21:27 [facility] Administered Medications: 21:27 Drug: Zithromax 500 mg Route: PO; vc Disposition: 12/25/19 20:56 Discharged to Home. Impression: Acute upper respiratory infection, unspecified, related conditions, unspecified, second trimester, Fever, unspecified. - Condition is Stable. - Discharge Instructions: Fever, Adult, Upper Respiratory Infection, Adult, Cool Mist Vaporizer, Upper Respiratory Infection, Adult, Aqxw-qb-Wkjn, Cough, Adult, Gfhi-qr-Tdab, Cough, Adult, COVID-19. - Prescriptions for Zithromax Z- Bret 250 mg Oral Tablet - take 1 tablet by ORAL route as directed for 5 days Day 1 - take two (2) tablets one time. Day 2, 3, 4 , 5 take one (1) tablet once daily.; 6 tablet. - Medication Reconciliation Form, Thank You Letter, Antibiotic Education, Prescription Opioid Use form. - Follow up: Private Physician; When: 2 - 3 days; Reason: Recheck today's complaints, Continuance of care, Re-evaluation by your physician. - Problem is new. - Symptoms have improved. Signatures: Dispatcher [employer] EDMS Izaiah Celeste MD MD cha Smirch, Shelby, RN RN ss Ilda Suarez RN RN vc Corrections: (The following items were deleted from the chart) 21:28 20:56 12/25/2019 20:56 Discharged to Home. Impression: Acute upper respiratory vc infection, unspecified; related conditions, unspecified, second trimester; Fever, unspecified. Condition is Stable. Forms are Medication Reconciliation Form, Thank You Letter, Antibiotic Education, Prescription Opioid Use. Follow up: Private Physician; When: 2 - 3 days; Reason: Recheck today's complaints, Continuance of care, Re-evaluation by your physician. Problem is new. Symptoms have improved. apolonia
[2019-12-25] MEDS ORDERED: AZITHROMYCIN 250 MG TAB ONE (21:11)
[2019-12-25 23:46] VITALS: BP 137/86; TEMP 97; O2SAT 97
[2019-12-26 22:05] LABS: Urine Blood TRACE (NEG); Urine Glucose NEGATIVE (NEG); Urine Protein NEGATIVE (NEG); Urine Specific Gravity >1.030 (1.005-1.030); Urine pH 5.5 (5.0-7.0)
== END 2019-12-25 21:28 | disposition home or self-care (01) ==
LOC: ER 15:13
DX: O99.512 Diseases of the respiratory system complicating pregnancy, second trimester (principal); Z20.828 Contact with and (suspected) exposure to other viral communicable diseases; J06.9 Acute upper respiratory infection, unspecified; Z3A.00 Weeks of gestation of pregnancy not specified; Z91.048 Other nonmedicinal substance allergy status
CPT/HCPCS: 81025; 81003; 87804 ×2; 71045; 99284; U0002

== ENCOUNTER 2020-10-22 17:07 | Emergency (ER) | payer OTHER ==
--- OUTSIDE RECORDS SUMMARY | 2020-10-22 17:09 | XMS REPORT | Continuity of Care Document ---
:1995 Author Organization [facility] t Address [address] [place] [address] Care Team Providers Name Role Phone Asked, Pcp Primary Care Physician Unavailable Elisa BECKMAN L Attending Clinician Pob, Lab Main Attending Clinician Unavailable Vic Pérez MD Admitting Clinician Payers Payer Name Policy Type Policy Number Effective Date Expiration Date S ource Problems Condition Condition Condition Status Onset Resolution Last Treating Co mments Source Name Details Category Date Date Treatment Clinician Date Contact Contact Problem Active [place] dermatitis [facility] Allergies, Adverse Reactions, Alerts Allergy Allergy Status Severity Reaction(s) Onset Inactive Treating Comm ents Source Name Type Date Date Clinician nickel DA Active MD 2019-06 [facility] 07[facility] [place] shrimp FA Active SV 2019-06 [facility] 1[facility] [place] SEAFOOD DA Active MD 2019-06 [facility] -[facility] [place] Social History Social Habit Start Date Stop Date Quantity Comments Source Alcohol intake 2017-03-29 2017-03-29 Current [facility] 00:00:00 00:00:00 non-drinker of alcohol (finding) Sex Assigned At [birth year] [facility] ethodist 00:00:00 00:00:00 Smoking Status Start Date Stop Date Source Former Smoker [facility] Never smoker [facility] Medications Ordered Filled Start Stop Current Ordering [...] Source BP Diastolic 2018-06-25 00:00:00 73 mm[Hg] [facility] Height 2018-06-25 00:00:00 64 [facility]in_i[facility] BMI (Body Mass 2018-06-25 00:00:00 38.1 kg/m2 [facility] 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 Plan of Care Planned Activity Planned Date Details Comments Source Future Scheduled 2021-01-17 INFLUENZA VACCINE [place] [facility] 00:00:00 [code = INFLUENZA VACCINE] Future Scheduled 2014 Screening for [facility] Test 00:00:00 malignant neoplasm of cervix (procedure) [code = 554020650] Future Scheduled 2009 COVID-19 VACCINE (1) Desiree [facility]ad [facility] 00:00:00 [code = COVID-19 VACCINE (1)] Encounters Start End Encounter Admission Attending Care Care Encounter Source Date/Time Date/Time Type Type Clinicians Facility Department ID 2020-03-06 2020-03-06 [facility] [id number] 10:22:00 13:25:00 Encounter Ute [place] [id number] [place] [id number] [place] [id number] 2019-09-16 2019-09-16 Statement Processor Ian Flores [facility] [id number] 13:01:46 13:16:46 Visit Lab Freddy [place] [id number] [place] [id number] Professio [id number] [place] [address] Building 2019-09-13 2019-09-13 Statement Processor Ian Flores [facility] [id number] 12:15:28 12:30:28 Visit Lab Main [place] [id number] [place] [id number] [place] [id number] [address] 2018-06-25 2018-06-25 Rey [facility] [place] - [id number] [facility] 00:00:00 00:00:00 Kimo Mcnamara, Medical Medical MD: [address] [facility], [place] [address] , Ph. Results Test Description Test Time Test Comments Results Result Comments Source FALLOPIAN TUBE,BIOPSY 2020-05-08 07:40:00 Test Item Value Reference Range Interpretation Comme nts FALLOPIAN RUN DATE: TUBE,BIOPSY 05/11/20 [facility] PAGE 1 RUN TIME: 1042 (test code = Specimen Inquiry RUN USER: INTERFACE FALLBX) PATIENT: ROCIO CHOI LOC: RAFAELA U #: [id number] AGE/SX: 24/ F ROOM: 2053 RE05/04/20REG DR: Lisy Ricks DO : [birth year] BED: A DIS: 05/06/20 STATUS: DIS IN TLOC: SPEC #: [id number] RECD: STATUS: PAMELLA MANNING #: [id number] MAYELIN: 05/05/20- SUBM DR: Lisy Ricks DO ENTERED: 05/05/20 SP TYPE: FALLBX OTHR DR: ORDERED: LEVEL IV CODES: [id number] - FALLOPIAN TUBE PROCEDURES: LEVEL IV (Incomplete) TISSUES: FALLOPIAN TUBE, NOS - RIGHT AND LEFT FALLOPIAN TUBE SEGMENTS CLINICAL HISTORY 24 year old, IUP @ 39.1 weeks, previous x3 (kr) FINAL DIAGNOSIS Right fallopian tube, resec tion: - no pathologic alterations - completely transected lumen demonstrated Lef t fallopian tube, resection: - benign paratubal cysts (2) - completely transected lumen demonstrated CPT code(s): 59996 x2 cds/kr GROSS DESCRIPTION ANATOMIC SOURCE OF TISSUE (per Requisition): Right and left fallopian tube segments (2 containers) Each specimen is labeled with the patient's name and medical record number. Specimen #1 is designated "right fallopian tube" and consists of a 5 x 0.7 cm pink-purple fallopian tube segment. Fimbriae are identified. Se ctioning reveals a pinpoint lumen. Insulation Worker Furnace Installer sections are submitted in A1. Specimen #2 is designated "left fallopian tube" and consists of a 5.5 x 0.7 cm serra-pink fallopian tube segment with fimbriae. Sectioning reveals a pinpoint lumen. Insulation Worker Furnace Installer sections are submitted in B1. nolan/bindu 05/05/20 CONTINUED ON NEXT PAGE RUN DATE: 05/11/20 [facility] PAGE 2 RUN TIME: 1042 Specimen Inquiry RUN USER: INTERFACE SPEC #: [id number] PATIENT: ROCIO CHOI #[id number] (Continued) Signed Olena Adame 05/08/20 0740 END OF REPORT HGB [id number] 05:28:00 Test Item Value Reference Range Interpretation Comments HEMOGLOBIN (test code = HGB) 10.6 g/dL 10.7-13.9 L HEMATOCRIT (test code = HCT) 32.8 % 32.1-42.1 N AG HEPATITIS B [id number] 13:13:00 Test Item Value Reference Range Interpretation Comments AG HEPATITIS B SURFACE (test code NONREACTIVE NONREACTIVE = HBSAG) IS CONSENT FORM SIGNED FOR HIV TESTING? YAB HEPATITIS C [id number] 13:13:00 Test Item Value Reference Range Interpretation Comments AB HEPATITIS C (test code = NONREACTIVE NONREACTIVE HCVAB) SIGNAL TO CUTOFF (test code = 0.10 <0.80 N CUTOFF) IS CONSENT FORM SIGNED FOR HIV TESTING? YAB [id number] 13:13:00 Test Item Value Reference Range Interpretation Comments AB TREPONEMA (test code = TREPAB) NONREACTIVE NONREACTIVE IS CONSENT FORM SIGNED FOR HIV TESTING? YAB HIV 1 13:13:00 Test Item Value Reference Range Interpretation Comments AB HIV 1 2 (test NONREACTIVE NONREACTIVE Done by Paige Gravesr code = [id number]) 4th Gen HIV Ag/Ab Combo Screen IS CONSENT FORM SIGNED FOR HIV TESTING? YCOVID 19 Asymptomatic IH [id number] 12:54:00 Test Item Value Reference Range Interpretation Comments COVID 19 NEGATIVE NEGATIVE This test has b een Asymptomatic IH AG authorize d only for the (test code = detection ofpro teins from COVNONPUIAG) SARS-CoV-2, not for any other viruses orpathogens. N egative results should be treated as presumptive andconfirmed wi th a molecular assay , if necessary for patientmanageme nt. Negative result s do not rule out COVID- 19 andshould not b e used as the sole basis for treatment orpat ient management deci sions, including infec tion controldecision s. Negative result s should be considered i n thecontext of a patient's recent exposure s, history and thepresence of clinical signs and symptoms consis tent withCOVID-19. T his test has not been FD A cleared or approved; th e test hasbeen authori zed by FDA under an Emerge ncy Use Authorization(E UA) for use by shreyas starks certified under the CLIA thatmeet the re quirements to perform mode rate, high or waivedcomple xity tests. This simran t is authorized for use at thePoint of Car e (POC), i.e., in patien t care settingsoperati ng under a CLIA Certificat e of Waiver, Certifi pradeep ofCompliance, o r Certificate of Accreditation. This test is only authori zed for the duration of thedeclaration that circumstances e xist justifying theauthorizatio n of emergency use o f in vitro diagnostic test sfor detection and/o r diagnosis of CO VID-19 under Ovsquyv07 4(b)(1) of the Act, 21 U.S .C. 360bbb-3(b)(1), unless theauthorizatio n is terminated or r evoked sooner. AG HEPATITIS B [id number] 12:50:00 Test Item Value Reference Range Interpretation Comments AG HEPATITIS B SURFACE (test code NONREACTIVE NONREACTIVE = HBSAG) IS CONSENT FORM SIGNED FOR HIV TESTING? YAB HEPATITIS C [id number] 12:50:00 Test Item Value Reference Range Interpretation Comments AB HEPATITIS C (test code = HCVAB) NONREACTIVE SIGNAL TO CUTOFF (test code = CUTOFF) <0.80 IS CONSENT FORM SIGNED FOR HIV TESTING? YAB [id number] 12:50:00 Test Item Value Reference Range Interpretation Comments AB TREPONEMA (test code = TREPAB) NONREACTIVE NONREACTIVE IS CONSENT FORM SIGNED FOR HIV TESTING? YAB HIV 1 12:50:00 Test Item Value Reference Range Interpretation Comments AB HIV 1 2 (test code = HAR09EL) NONREACTIVE IS CONSENT FORM SIGNED FOR HIV TESTING? YURINALYSIS W/O [id number] 12:04:00 Test Item Value Reference Range Interpretation Comments UA GLUCOSE DIPSTICK (test code = NEGATIVE NEGATIVE DGLUU) UA KETONE DIPSTICK (test code = NEGATIVE NEGATIVE KETU) UA PROTEIN DIPSTICK (test code = NEGATIVE NEGATIVE PROU) IS NURSE PERFORMING TEST? NCBC W/AUTO [id number] 12:03:00 Test Item Value Reference Range Interpretation Comments WHITE BLOOD CELL (test code = WBC) 10.2 K/mm3 6.6-12.1 N RED BLOOD CELL (test code = RBC) 3.94 M/mm3 3.45-5.01 N HEMOGLOBIN (test code = HGB) 12.2 g/dL 10.7-13.9 N HEMATOCRIT (test code = HCT) 37.0 % 32.1-42.1 N MEAN CELL VOLUME (test code = MCV) 94 fL 84.1-94.8 N MEAN CELL HGB (test code = MCH) 31.0 pg 27-35 N MEAN CELL HGB CONCETRATION (test 33.0 gm/dL 32.2-34.1 N code = MCHC) RED CELL DISTRIBUTION WIDTH (test 13.5 % 12.4-16.5 N code = RDW) PLATELET COUNT (test code = PLT) 180 K/mm3 133-385 N MEAN PLATELET VOLUME (test code = 11.8 fl 9.1-12.7 N MPV) NEUTROPHIL % (test code = NT%) 70.8 % 56.5-79.4 N LYMPHOCYTE % (test code = LY%) 19.6 % 14.3-34.3 N MONOCYTE % (test code = MO%) 8.0 % 5.1-10.4 N EOSINOPHIL % (test code = EO%) 0.7 % 0.1-3.0 N BASOPHIL % (test code = BA%) 0.4 % 0.1-1.0 N NEUTROPHIL # (test code = NT#) 7.3 K/mm3 LYMPHOCYTE # (test code = LY#) 2.0 K/mm3 MONOCYTE # (test code = MO#) 0.8 K/mm3 EOSINOPHIL # (test code = EO#) 0.07 K/mm3 BASOPHIL # (test code = BA#) 0.0 K/mm3 RBC MORPHOLOGY REQUIRED (test code NORMAL NORMAL = RBCM) PLATELET MORPHOLOGY REQUIRED (test NORMAL NORMAL code = PLTMR)
[2020-10-22 20:08] LABS: Urine Blood Negative (Negative); Urine Glucose Negative (Negative); Urine Protein Negative (Negative); Urine Specific Gravity 1.025 (1.005-1.030); Urine pH 6.5 (5.0-7.0)
[2020-10-22 20:25] LABS: Absolute Lymphocytes (CBC) 2.6 K/uL (0.7-4.9); Basophils % 0.4 % (0-1.3); Hematocrit 36.7 % (36.0-45.0); RBC Red Blood Cell Count 4.39 M/uL (3.86-4.86)
[2020-10-22 20:28] LABS: Urine Specific Gravity/Preg 1.025 (1.005-1.030)
[2020-10-22 20:34] LABS: ALT/SGPT 27 U/L (12-78); AST/SGOT 14 U/L (15-37); Albumin 3.7 g/dL (3.4-5.0); Alkaline Phosphatase 116 U/L (45-117); BUN Blood Urea Nitrogen 14 mg/dL (7-18); Bicarbonate 23 mmol/L (21-32); Bilirubin Direct < 0.1 mg/dL (0-0.2); Bilirubin Total 0.4 mg/dL (0.2-1.0); Glucose Level 94 mg/dL (74-106); Magnesium 2.1 mg/dL (1.8-2.4); NT PRO-BNP 39 pg/mL (<125); Protein, Total 7.8 g/dL (6.4-8.2); Sodium Level 138 mmol/L (136-145); Troponin (Emerg Dept Use Only) < 0.02 ng/mL (0.0-0.045)
[2020-10-22 20:50] LABS: Protime INR 1.02
[2020-10-22] MEDS ORDERED: ACETAMINOPHEN 500 MG TAB ONE (21:10)
--- NOTE | 2020-10-22 21:34 | RAD REPORT ---
EXAM DESCRIPTION: Sorin Single View10/22/2020 9:16 pm CLINICAL HISTORY: Chest pain COMPARISON: 2019 FINDINGS: The lungs appear clear of acute infiltrate. The heart is normal size IMPRESSION: No acute abnormalities displayed
[2020-10-22] MEDS ORDERED: KETOROLAC 30 MG/ML INJ ONE (22:54)
--- NOTE | 2020-10-22 23:15 | ER ---
Nurse's Notes [facility] Name: Marly Cabrera Age: 25 yrs Sex: Female : 1995 Arrival Date: 10/22/2020 Time: 17:08 Bed 30 Private MD: Diagnosis: Chest Wall Pain;Cough;Urinary tract infection, site not specified Presentation: 10/22 17:31 Chief complaint: Patient states: Covid+ on 10/03/2020. Had Negative Covid test 10/19/2020 ca1 by mouth. Been having chest pain x 2 days, increase coughing, every I cough, I hurt on my R ribs. Coronavirus screen: Client reports previous positive COVID test result. Date of collection: October 03, 2020 Staff notified of need for isolation. Ebola Screen: Patient negative for fever greater than or equal to 101.5 degrees Fahrenheit, and additional compatible Ebola Virus Disease symptoms Patient denies exposure to infectious person. Patient denies travel to an Ebola-affected area in the 21 days before illness onset. No symptoms or risks identified at this time. Initial Sepsis Screen: Does the patient meet any 2 criteria? No. Patient's initial sepsis screen is negative. Does the patient have a suspected source of infection? No. Patient's initial sepsis screen is negative. Risk Assessment: Do you want to hurt yourself or someone else? Patient reports no desire to harm self or others. Onset of symptoms was October 22, 2020. 17:31 Method Of Arrival: Ambulatory ca1 17:31 Acuity: DILLON 3 ca1 DATA EXAMINATION CLERK: 17:36 LMP N/A - Irregular menses ca1 Historical: - Allergies: 17:36 HAZEL; ca1 - Home Meds: 17:36 None [Active]; ca1 - PMHx: 17:36 None; ca1 - PSHx: 17:36 ; ca1 - Immunization history:: Client reports having NOT received the Covid vaccine. Flu vaccine is up to date. - Social history:: Smoking status: Patient denies any tobacco usage or history of. Screenin:17 Abuse screen: Denies threats or abuse. Denies injuries from another. Nutritional iw screening: No deficits noted. Tuberculosis screening: No symptoms or risk factors identified. Fall Risk IV access (20 points). Assessment: 20:57 General: Appears in no apparent distress. Behavior is calm, cooperative, appropriate kg for age, quiet. Pain: Complains of pain in chest Pain radiates to right breast Pain currently is 8 out of 10 on a pain scale. at worst was 10 out of 10 on a pain scale. level that patient reports is acceptable is 3 out of 10 on a pain scale. Pain began 1 hour ago. Neuro: No deficits noted. Cardiovascular: Reports chest pain, shortness of breath, Heart tones S1 S2 Capillary refill Pulses are all present. Rhythm is regular Chest pain quality is "feels like a pill stuck in my throat kind of pain". Constant, Dull. Respiratory: No deficits noted. GI: No deficits noted. : No deficits noted. EENT: No deficits noted. Derm: No deficits noted. Musculoskeletal: No deficits noted. 23:07 Cardiovascular: Heart tones S1 S2. Respiratory: Breath sounds are clear bilaterally. kg Vital Signs: 17:31 BP 112 / 61; Pulse 77; Resp 16 S; Temp 98(O); Pulse Ox 99% on R/A; Weight 111.13 kg ca1 (R); Height 5 ft. 3 in. (160.02 cm) (R); Pain 5/10; 20:00 BP 125 / 82; Pulse 106; Pulse Ox 100% ; cr4 20:56 BP 110 / 73; Pulse 81; Resp 18; Pulse Ox 98% ; Pain 8/10; kg 22:00 BP 115 / 71; Pulse 97; Resp 20; Pulse Ox 99% on R/A; kg 22:00 BP 115 / 58; Pulse 77; Resp 20; Pulse Ox 99% on R/A; kg 17:31 Body Mass Index 43.40 (111.13 kg, 160.02 cm) ca1 ED Course: 17:08 Patient arrived in ED. am2 17:35 Triage completed. ca1 17:36 Arm band placed on right wrist. ca1 19:34 Dayo De Jesus MD is Attending Physician. mh7 19:42 Pauly Gilman is Primary Nurse. kg 20:00 Initial lab(s) drawn, by me, sent to lab. Urine collected: clean catch specimen. iw Inserted saline lock: 20 gauge in right antecubital area, using aseptic technique. 21:16 XRAY Chest (1 view) In Process Unspecified. EDMS 23:29 No provider procedures requiring assistance completed. IV discontinued, intact, kg bleeding controlled, No redness/swelling at site. Pressure dressing applied. 23:30 Patient has correct armband on for positive identification. Allergy band placed. Placed kg in gown. Bed in low position. Call light in reach. Side rails up X 1. youth nutritional monitor on. Pulse ox on. NIBP on. 23:31 Patient maintains SpO2 saturation greater than 95% on room air. kg Administered Medications: 20:55 Drug: Tylenol 1000 mg Route: PO; iw 22:40 Follow up: Response: No adverse reaction kg 22:40 Drug: TORadol (ketorolac) 30 mg Route: IVP; Site: right antecubital; kg 23:31 Follow up: Response: No adverse reaction; Marked relief of symptoms; Pain is decreased kg Outcome: 23:14 Discharge ordered by MD. alvarenga 23:29 Discharged to home ambulatory. kg 23:29 Condition: good 23:29 Discharge instructions given to patient, Instructed on discharge instructions, follow up and referral plans. Demonstrated understanding of instructions, follow-up care, medications, Prescriptions given X 2. 23:31 Patient left the ED. kg Signatures: Dispatcher [employer] EDMS Bree Garrison RN RN iw Temi Cabral RN RN cr4 Catrina Greer am2 Bettye Cunha RN RN ca1 Dayo De Jesus MD MD Pauly Vallejo kg
--- NOTE | 2020-10-22 23:15 | EDPHYS ---
Physician Documentation [facility] Name: Marly Cabrera Age: 25 yrs Sex: Female : 1995 Arrival Date: 10/22/2020 Time: 17:08 Bed 30 Private MD: ED Physician Dayo De Jesus HPI: 10/22 19:48 This 25 yrs old Female presents to ER via Ambulatory with complaints of Chest mh7 Pain - midsternum. 19:48 The patient or guardian reports chest pain that is located primarily in the substernal mh7 area. The pain does not radiate. Associated signs and symptoms: Pertinent positives: cough, Pertinent negatives: abdominal pain, diaphoresis, dizziness, headache, lower extremity pain, lower extremity swelling, lightheadedness, nausea, near syncope, palpitations, recent travel, shortness of breath, syncope, vomiting. The chest pain is described as sharp. Duration: The patient or guardian reports multiple episodes, that are intermittent, that wax and wane, with coughing. Modifying factors: The symptoms are alleviated by nothing. the symptoms are aggravated by cough. 19:49 Severity of pain: At its worst the pain was moderate 2 day(s) ago, in the emergency 7 department the pain has improved moderately. 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 Flu vaccine is up to date. - Social history:: Smoking status: Patient denies any tobacco usage or history of. ROS: 19:49 Constitutional: Negative for fever, chills, and weight loss, Eyes: Negative for injury, mh7 pain, redness, and discharge, ENT: Negative for injury, pain, and discharge, Neck: Negative for injury, pain, and swelling, Abdomen/GI: Negative for abdominal pain, nausea, vomiting, diarrhea, and constipation, Back: Negative for injury and pain, : Negative for injury, bleeding, discharge, and swelling, MS/Extremity: Negative for injury and deformity, Skin: Negative for injury, rash, and discoloration, Neuro: Negative for headache, weakness, numbness, tingling, and seizure, Psych: Negative for depression, anxiety, suicide ideation, homicidal ideation, and hallucinations, Allergy/Immunology: Negative for hives, rash, and allergies, Endocrine: Negative for neck swelling, polydipsia, polyuria, polyphagia, and marked weight changes, Hematologic/Lymphatic: Negative for swollen nodes, abnormal bleeding, and unusual bruising. Exam: 19:49 Constitutional: This is a well developed, well nourished patient who is awake, alert, mh7 and in no acute distress. Head/Face: Normocephalic, atraumatic. Eyes: Pupils equal round and reactive to light, extra-ocular motions intact. Lids and lashes normal. Conjunctiva and sclera are non-icteric and not injected. Cornea within normal limits. Periorbital areas with no swelling, redness, or edema. ENT: Nares patent. No nasal discharge, no septal abnormalities noted. Tympanic membranes are normal and external auditory canals are clear. Oropharynx with no redness, swelling, or masses, exudates, or evidence of obstruction, uvula midline. Mucous membranes moist. Neck: Trachea midline, no thyromegaly or masses palpated, and no cervical lymphadenopathy. Supple, full range of motion without nuchal rigidity, or vertebral point tenderness. No Meningismus. 19:49 Cardiovascular: Regular rate and rhythm with a normal S1 and S2. No gallops, murmurs, or rubs. Normal PMI, no JVD. No pulse deficits. Respiratory: Lungs have equal breath sounds bilaterally, clear to auscultation and percussion. No rales, rhonchi or wheezes noted. No increased work of breathing, no retractions or nasal flaring. Abdomen/GI: Soft, non-tender, with normal bowel sounds. No distension or tympany. No guarding or rebound. No evidence of tenderness throughout. Back: No spinal tenderness. No costovertebral tenderness. Full range of motion. Skin: Warm, dry with normal turgor. Normal color with no rashes, no lesions, and no evidence of cellulitis. MS/ Extremity: Pulses equal, no cyanosis. Neurovascular intact. Full, normal range of motion. Neuro: Awake and alert, GCS 15, oriented to person, place, time, and situation. Cranial nerves II-XII grossly intact. Motor strength 5/5 in all extremities. Sensory grossly intact. Cerebellar exam normal. Normal gait. Psych: Awake, alert, with orientation to person, place and time. Behavior, mood, and affect are within normal limits. 19:49 Chest/axilla: Inspection: normal, Palpation: tenderness, that is moderate, of the mid-sternal area, that totally reproduces the patient's complaints, Axilla: are normal, Lymph nodes: lymphadenopathy is not appreciated. 19:53 ECG was reviewed by the Attending Physician. [facility] Vital Signs: 17:31 BP 112 / 61; Pulse 77; Resp 16 S; Temp 98(O); Pulse Ox 99% on R/A; Weight 111.13 kg ca1 (R); Height 5 ft. 3 in. (160.02 cm) (R); Pain 5/10; 20:00 BP 125 / 82; Pulse 106; Pulse Ox 100% ; cr4 20:56 BP 110 / 73; Pulse 81; Resp 18; Pulse Ox 98% ; Pain 8/10; kg 22:00 BP 115 / 71; Pulse 97; Resp 20; Pulse Ox 99% on R/A; kg 22:00 BP 115 / 58; Pulse 77; Resp 20; Pulse Ox 99% on R/A; kg 17:31 Body Mass Index 43.40 (111.13 kg, 160.02 cm) ca1 MDM: 23:12 Differential diagnosis: acute myocardial infarction, acute pericarditis, anxiety, 7 coronary artery disease chest wall pain, congestive heart failure costochondritis, myocarditis, pericarditis, pneumonia, pneumothorax, pulmonary embolus. HEART Score: History: Slightly Suspicious (0), ECG: Normal (0), Age: < or = 45 years (0), Risk Factors: 1 or 2 risk factors (1), [Obesity] Troponin: < or = 1 x Normal Limit (0), Total Score = 1. Data reviewed: vital signs, nurses notes, old medical records, lab test result(s), cardiac enzymes, CBC, electrolytes, urinalysis, EKG, radiologic studies, plain films. Data interpreted: Pulse oximetry: on room air is 99 %. Interpretation: normal. Counseling: I had a detailed discussion with the patient and/or guardian regarding: the historical points, exam findings, and any diagnostic results supporting the discharge/admit diagnosis, lab results, radiology results, the need for outpatient follow up, to return to the emergency department if symptoms worsen or persist or if there are any questions or concerns that arise at home. Response to treatment: the patient's symptoms have markedly improved after treatment. 23:14 Patient medically screened. [facility] 10/22 19:46 Order name: Basic Metabolic Panel [facility] 10/22 19:46 Order name: CBC with Diff [facility] 10/22 19:46 Order name: LFT's; Complete Time: 20:35 [facility] 10/22 19:46 Order name: Magnesium; Complete Time: 20:35 [facility] 10/22 19:46 Order name: NT PRO-BNP; Complete Time: 20:35 [facility] 10/22 19:46 Order name: PT-INR; Complete Time: 21:25 [facility] 10/22 19:46 Order name: Troponin (emerg Dept Use Only); Complete Time: 20:35 [facility] 10/22 19:46 Order name: XRAY Chest (1 view); Complete Time: 22:08 [facility] 10/22 19:46 Order name: Basic Metabolic Panel; Complete Time: 20:35 [facility] 10/22 19:46 Order name: CBC with Automated Diff; Complete Time: 20:54 [facility] 10/22 19:47 Order name: D-Dimer; Complete Time: 21:25 [facility] 10/22 20:07 Order name: Urine Dipstick-Ancillary; Complete Time: 20:21 [facility] 10/22 20:09 Order name: Urine --Ancillary (enter results); Complete Time: 20:35 [facility] 10/22 19:36 Order name: EKG - Nurse/Tech; Complete Time: 19:36 10/22 19:46 Order name: EKG; Complete Time: 19:47 [facility] 10/22 19:46 Order name: Cardiac monitoring; Complete Time: 20:55 [facility] 10/22 19:46 Order name: IV Saline Lock; Complete Time: 20:10 [facility] 10/22 19:46 Order name: Labs collected and sent; Complete Time: 20:10 [facility] 10/22 19:46 Order name: O2 Per Protocol; Complete Time: 20:10 [facility] 10/22 19:46 Order name: O2 Sat Monitoring; Complete Time: 20:10 [facility] 10/22 19:46 Order name: Urine Dipstick-Ancillary (obtain specimen); Complete Time: 20:10 7 10/22 19:46 Order name: Urine Test (obtain specimen); Complete Time: 20:10 mh7 EC:53 Rate is 75 beats/min. Rhythm is regular. QRS [place] is Normal. DC interval is normal. QRS mh7 interval is normal. QT interval is normal. No Q waves. T waves are Normal. No ST changes noted. Clinical impression: Normal ECG. Administered Medications: 20:55 Drug: Tylenol 1000 mg Route: PO; iw 22:40 Follow up: Response: No adverse reaction kg 22:40 Drug: TORadol (ketorolac) 30 mg Route: IVP; Site: right antecubital; kg 23:31 Follow up: Response: No adverse reaction; Marked relief of symptoms; Pain is decreased kg Disposition: 10/22/20 23:14 Discharged to Home. Impression: Chest Wall Pain, Cough, Urinary tract infection, site not specified. - Condition is Stable. - Discharge Instructions: Chest Wall Pain, [id number], Urinary Tract Infection, Adult, [id number], Cough, Adult, [id number]. - Prescriptions for Tessalon Perles 100 mg Oral Capsule - take 1 capsule by ORAL route every 8 hours As needed; 15 capsule. Cipro 500 mg Oral Tablet - take 1 tablet by ORAL route every 12 hours for 7 days; 14 tablet. - Medication Reconciliation Form, Thank You Letter, Antibiotic Education, Prescription Opioid Use form. - Follow up: Private Physician; When: 1 - 2 days; Reason: Worsening of condition, Recheck today's complaints, Continuance of care, Re-evaluation by your physician. - Problem is new. - Symptoms have improved. Signatures: Dispatcher [employer] EDOK Bree Garrison RN RN Bettye Cunha RN RN [facility] Dayo De Jesus MD MD 7 Pauly Gilman kg Corrections: (The following items were deleted from the chart) 23:18 23:14 10/22/2020 23:14 Discharged to Home. Impression: Chest Wall Pain; Cough. mh7 Condition is Stable. Forms are Medication Reconciliation Form, Thank You Letter, Antibiotic Education, Prescription Opioid Use. Follow up: Private Physician; When: 1 - 2 days; Reason: Worsening of condition, Recheck today's complaints, Continuance of care, Re-evaluation by your physician. Problem is new. Symptoms have improved. mh7 23:31 23:18 10/22/2020 23:14 Discharged to Home. Impression: Chest Wall Pain; Cough; Urinary kg tract infection, site not specified. Condition is Stable. Discharge Instructions: Chest Wall Pain, [id number], Cough, Adult, [id number]. Prescriptions for Tessalon Perles 100 mg Oral Capsule - take 1 capsule by ORAL route every 8 hours As needed; 15 capsule. and Forms are Medication Reconciliation Form, Thank You Letter, Antibiotic Education, Prescription Opioid Use. Follow up: Private Physician; When: 1 - 2 days; Reason: Worsening of condition, Recheck today's complaints, Continuance of care, Re-evaluation by your physician. Problem is new. Symptoms have improved. 7
[2020-10-22 23:54] VITALS: TEMP 98
[2020-10-23 00:37] VITALS: BP 115/58; O2SAT 99
--- NOTE | 2020-10-23 07:50 | EKG ---
Test Date: 2020-10-22 Test Time: 17:41:50 Personal Fitness Manager: CHANDLER MEASUREMENT RESULTS: Intervals: Rate: 75 SC: 152 QRSD: 78 QT: 376 QTc: 419 [place]: P: 47 SC: 152 QRS: 74 T: 23 INTERPRETIVE STATEMENTS: Normal sinus rhythm Normal ECG No previous ECG available for comparison Electronically Signed On 10-23-20 07:48:18 CDT by Zbigniew Cortez
== END 2020-10-22 23:31 | disposition home or self-care (01) ==
LOC: ER 17:07
DX: R05 Cough (principal); N39.0 Urinary tract infection, site not specified; Z91.048 Other nonmedicinal substance allergy status
CPT/HCPCS: 36415; 71045; 80048; 80076; 81003; 81025; 83735; 83880; 84484; 85025; 85379; 85610; 93005; 96374; 99285

== ENCOUNTER 2021-06-04 21:54 | Emergency (ER) | payer OTHER ==
--- OUTSIDE RECORDS SUMMARY | 2021-06-04 21:59 | XMS REPORT | Continuity of Care Document ---
:1995 Author Organization [facility] t Address [address] [place] [address] Care Team Providers Name Role Phone Millicent Attending Clinician Unavailable KARINE Attending Clinician Unavailable Jack IBRAHIM, S Attending Clinician Doctor Unassigned, Name Attending Clinician Unavailable Vic Pérez MD Attending Clinician Pob, Lab Main Attending Clinician Unavailable Tanisha Bui MD Attending Clinician TANISHA BUI Attending Clinician Unavailable Krystle Attending Clinician Unavailable Vic PÉREZ Admitting Clinician Unavailable Millicent Admitting Clinician Unavailable Vic Pérez MD Admitting Clinician Krystle Admitting Clinician Unavailable Payers Payer Name Policy Type Policy Number Effective Date Expiration Date [facility] [id number] 2019 [facility] MEDICAID 00:00:00 [place] [id number] 2014 00:00:00 MEDICAID COMM [id number] 2019 HEALTH CHOICE 00:00:00 [facility] [id number] CHOICE (MEDICAID REPLACEMENT - HMO) Problems Condition Condition Condition Status Onset Resolution Last Treating Co mments Source Name Details Category Date Date Treatment Clinician Date Abdominal Abdominal Disease Active Uni vers cramping cramping 3-27 ity of 00:00: [place] 00 Medical [facility] Morbid Morbid Disease Active Univers obesity obesity 3-26 [place] of [place] mass index mass index 00 Me dical of of Branch 40.0-49.9 40.0-49.9 Abnormal Abnormal Disease Active Unive rs genetic genetic 3-22 ity of test in test in 00:00: [place] 00 [facility] Branch Contact Contact Problem Active [place] dermatitis [facility] Allergies, Adverse Reactions, Alerts Allergy Allergy Status Severity Reaction(s) Onset Inactive Treating Comm ents Source Name Type Date Date Clinician nickel DA Active [place] 2019-06 [facility] [place] shrimp FA Active SV 2019-06 [facility] [place] SEAFOOD DA Active [place] RASH 2019-06 [facility] 1[facility] [place] nickel DA Active [place] RASH 2019-06 [facility] 1[facility]16 [facility] [place] shrimp FA Active SV ANAPHYLAXIS 2019-06 [facility] 1[facility]16 [facility] [place] NICKEL DRUG Active Hives Univers INGREDI 3-11 ity of 00:00: [place] 00 Medical Branch Nickel Propensi Active Hives Univers ty to 3-11 ity of adverse 00:00: [place] reaction 00 Medical s Branch Social History Social Habit Start Date Stop Date Quantity Comments Source ASSERTION 2019-08-18 University of 00:00:00 [place] [facility] History SDOH University o f Alcohol Std [place] [facility] Drinks Branch History SDOH University o f Alcohol Binge [place] [facility] Exposure to Not sure University of SARS-CoV-2 [facility] (event) Branch Alcohol intake 2020-10-27 2020-10-27 Current drinker Unive rsity of 00:00:00 00:00:00 of alcohol [place] [facility] (finding) Branch Tobacco use and 2020-10-27 2020-10-27 Never used Universit y of exposure 00:00:00 00:00:00 [facility] History SDOH 2019-09-12 2019-09-12 2 University o f Alcohol Frequency 00:00:00 [facility]:00 [place] [facility] [place] Sex Assigned At [birth year] Universit y of 00:00:00 00:00:00 [facility] Smoking Status Start Date Stop Date Source Former Smoker [facility] Never smoker [facility] Medications Ordered Filled Start Stop Current Ordering Indication Dosage Frequency Signature Comments Components Source Medication Medication Date Date Medication? Clinician (SIG) Name Name aspirin 325mg 325 mg, Unive rs tablet 325 10-27 Oral, ity of mg 16:30: 15:37 ONCE, 1 [place] 00 :00 dose, Tue Medical 10/27/20 at Branch 1130, STAT ciprofloxac No [id number] 250mg Take 1 Univers in HCl 250 10-27 tablet by ity of mg tablet 00:00: 00:[place] mouth 2 [place] (two[place] Medical times Branch daily. 2020-0 Yes Take by Unive rs vit 9-18 mouth. ity of calc,iron,f 18:27: [facility] 14 Medical ( Branch VITAMIN ORAL) 20200 Yes Take by Unive rs vit 9-18 mouth. ity of calc,iron,f 18:27: [facility] 14 Medical ( Branch VITAMIN ORAL) 20200 Yes Take by Unive rs vit 9-18 mouth. ity of calc,iron,f 18:27: [facility] 14 Medical ( Branch VITAMIN ORAL) 2020-0 Yes Take by Unive rs vit 3-26 mouth. ity of calc,iron,f 19:23: [facility] 23 Medical ( Branch VITAMIN ORAL) 2020-0 Yes Take by Unive rs vit 3-26 mouth. ity of calc,iron,f 19:23: [facility] 23 Medical ( Branch VITAMIN ORAL) Nexplanon Nexplanon No Nexplanon [place] 68 mg [...] ONCE DAYS DAYS DAILY FOR 4 DAYS cyclobenzap cyclobenzap No 1 TID cyclobenza [place] [...] as directed as directed route as directed Vital Signs Vital Name Observation Time Observation Value Comments Source Systolic blood 2020-10-27 16:00:00 120 mm[Hg] [facility] Diastolic blood 2020-10-27 16:00:00 67 mm[Hg] [facility] Heart rate 2020-10-27 16:00:00 78 /min [facility] Respiratory rate 2020-10-27 16:00:00 21 /min [facility] Oxygen saturation in 2020-10-27 16:00:00 98 /min [facility] Arterial blood by [facility] Pulse oximetry [place] Body temperature 2020-10-27 14:50:00 36.56 Celia [facility] Body height 2020-10-27 14:50:00 160 cm [facility] Body weight 2020-10-27 14:50:00 113.399 kg [facility] BMI 2020-10-27 14:50:00 44.29 kg/m2 Universi [facility] Body temperature 2020-03-06 15:53:00 36.44 Celia [facility] Respiratory rate 2020-03-06 15:53:00 18 /min [facility] Body height 2020-03-06 15:53:00 160 cm Universi ty [facility] Body weight 2020-03-06 15:53:00 117.028 kg Universi ty [facility] BMI 2020-03-06 15:53:00 45.70 kg/m2 Universi [facility] Oxygen saturation in 2020-03-06 15:53:00 97 /min University of Arterial blood by [facility] Pulse oximetry Branch Body temperature 2020-03-06 15:53:00 36.44 Celia [facility] Respiratory rate 2020-03-06 15:53:00 18 /min [facility] Body height 2020-03-06 15:53:00 160 cm Universi ty [facility] Body weight 2020-03-06 15:53:00 117.028 kg Universi [facility] BMI 2020-03-06 15:53:00 45.70 [facility]m2 [facility] Oxygen saturation in 2020-03-06 15:53:00 97 /min University of Arterial blood by [facility] Pulse oximetry Branch BP Diastolic 2018-06-25 00:00:00 73 mm[Hg] [facility] Height 2018-06-25 00:00:00 64 [in_i] [facility] BMI (Body Mass 2018-06-25 00:00:00 38.1 [facility] BP Systolic 2018-06-25 00:00:00 143 mm[Hg] [facility] Body Weight 2018-06-25 00:00:00 3555 [oz_av] [facility] Procedures Procedure Date / Time Performing Clinician Source Performed XR CHEST 1 VW 2020-10-27 16:06:16 Maranda Santiago [facility] POCT TEST 2020-10-27 15:48:00 Maranda Santiago [facility] URINALYSIS 2020-10-27 15:37:00 Maranda Santiago [facility] N-TERMINAL PRO-BNP 2020-10-27 15:25:00 Maranda Santiago [facility] TROPONIN I 2020-10-27 15:25:00 Maranda Santiago [facility] COMP. METABOLIC PANEL 2020-10-27 15:25:00 Maranda Santiago [facility] ([id number]) Medical Branch CBC WITH DIFF 2020-10-27 15:25:00 Maranda Santiago [facility] PROTHROMBIN TIME / INR 2020-10-27 15:25:00 Maranda Santiago [facility] D-DIMER 2020-10-27 15:25:00 Maranda Santiago [facility] ACTIVATED PARTIAL 2020-10-27 15:25:00 Maranda Santiago [facility] NOTICE OF PRIVACY 2020-10-27 14:41:05 Doctor Unassigned, No [facility] CONSENT/REFUSAL FOR 2020-10-27 14:40:51 Doctor Unassigned, No [facility] DIAGNOSIS AND TREATMENT [facility] Branch [id number] 2020-05-04 00:00:00 MONMA.05 [facility] [id number] 2020-05-04 00:00:00 MONMA.05 [facility] COVID-19 (ID NOW RAPID 2020-03-06 16:10:00 Ute Pérez [facility] TESTING) Medical Branch NOTICE OF PRIVACY 2020-03-06 15:23:22 Doctor Unassigned, No [facility] CONSENT/REFUSAL FOR 2020-03-06 15:23:04 Doctor Unassigned, No [facility] Medical [place] ASSIGNMENT OF BENEFITS 2020-03-06 15:22:54 Doctor Unassigned, No [facility] TOTAL BETA HCG ASSAY 2019-09-13 17:26:00 Andrew Bui [facility] CBC WITH DIFFERENTIAL 2019-09-13 17:26:00 Andrew Bui [facility] HB ABO GROUPING 2019-09-13 17:24:00 Andrew Bui [facility] o f [facility] Encounters Start End Encounter Admission Attending Care Care Encounter Source Date/Time Date/Time Type Type Clinicians Facility Department ID 2021-04-18 Emergency [facility] [id number] Univers 18:20:52 ity of [facility] 2021-04-16 Outpatient P [facility] JOSE RAFAEL [id number] Univers 18:19:41 ity of [facility] 2021-04-16 Outpatient P [facility] JOSE RAFAEL [id number] Univers 18:16:13 ity of [facility] 2020-05-04 Inpatient Millicent, [facility] LD [id number] [facility] 10:00:00 Lisy [id number] [facility] [place] 2020-05-01 Inpatient Millicent, [facility] [id number] [facility] 10:00:00 Lisy [id number] [facility] [place] 2020-11-06 2020-11-[address] [facility] [id number] 00:00:00 00:00:00 [facility] 2020-10-27 2020-10-27 Emergency [facility] [id number] Univers 09:48:00 11:52:00 Maranda Midd[place] [id number] i ty of [place] 4.2.7.2.686 [facility] s Hazel [phone] [facility] 084 Branch 2020-10-27 2020-10-27 Orders Doctor ABDON [id number] Univers 00:00:00 00:00:00 Only Unassigned, MARK [id number] ity of [facility] 4.2.7.2.686 [place] as [phone] [facility] 009 Branch 2020-03-06 2020-03-06 Hospital Elisa [facility] [id number] Univers 10:22:00 13:25:00 Encounter Ute [place] [id number] ity of [place] 4.2.7.2.686 [place] [id number] [facility] 083 Branch 2020-03-06 2020-03-06 [facility] [id number] 10:22:00 13:25:00 Encounter Ute [facility] [place] 350.1.13.10 [place] 4.2.7.2.686 [place] [id number] 2019-09-16 2019-09-16 Pitch Worker Ian Flores Lab Main [facility] 1.2.8 [id number] [id number] Univers 13:01:46 13:16:46 Visit Andrew Bui [id number] ity [facility] 4.2.7.2.686 [place] Profess[place] [phone] In dical [address] 2019-09-16 2019-09-16 Pitch Worker Ian Flores [facility] [id number] 13:01:46 13:16:46 Visit Lab Main [place] [id number] [place] 4.2.7.2.686 Professio [id number] [address] 2019-09-16 2019-09-16 Outpatient R [facility] [id number] Univers 13:00:00 13:00:00 [id number] ity [facility] 2019-09-16 2019-09-16 Outpatient R [facility] [id number] Univers 13:00:00 13:00:00 ity [facility] 2019-09-13 2019-09-13 Pitch Worker Ian Flores Lab Main [facility] 1.2.8 40.114 [id number] Univers 12:15:28 12:30:28 Visit Andrew Bui [id number] ity [facility] 4.2.7.2.686 [place] [phone] In dical [address] 2019-09-13 2019-09-13 Pitch Worker Ian Flores [facility] [id number] 12:15:28 12:30:28 Visit Lab Main [place] [id number] [place] 4.2.7.2.686 Professio [id number] 2019-09-13 2019-09-13 Outpatient R HAO ANDREW [facility] [id number] [facility] 12:15:00 12:15:00 ity of [place] [facility] 2019-03-19 2019-03-19 Outpatient Shield [facility] [id number] [place] 03:33:00 03:33:00 [id number] Medical Group 2018-06-25 2018-06-25 [facility] [place] - [id number] [place] 00:00:00 00:00:00 Anthony Leahy Medical MD: [address] [facility], [place] [address] , Ph. Results Test Description Test Time Test Comments Results Result Sourc e Comments XR CHEST 1 VW 2020-10-17 No acute [facility] cardiopulmonary [facility] ical 16:18:07 abnormality. Branch Preliminary Report Dictated by Resident: Marjorie Lion MD., have reviewed this study and agree with theabove report.EXAM: XR CHEST 1 VW HISTORY: 25 years-old Female; chest pain Covid positive on October 02,tested negative October 19. Since having covid she has felt intermittent chestpains and pain when breathing deeply TECHNIQUE: Single frontal view of the chest. COMPARISON: None FINDINGS: The lungs are moderately well-expanded, and clear apart from mild perihilarvascular congestion. No focal consolidation, pleural effusion, orpneumothorax is visualized. The cardiomediastinal silhouette is at the upper limits of normal in size. No acute osseous abnormality is present. [facility], Radiant Results Inft User - 10/27/2020 11:19 AM CDTEXAM: XR CHEST 1 VWHISTORY: 25 years-old Female; chest pain Covid positive on October 02,tested negative October 19. Since having covid she has felt intermittent chestpains and pain when breathing deeplyTECHNIQUE: Single frontal view of the chest.COMPARISON: NoneFINDINGS:The lungs are moderately well-expanded, and clear apart from mild perihilarvascular congestion. No focal consolidation, pleural effusion, orpneumothorax is visualized. The cardiomediastinal silhouette is at the upper limits of normal in size. No acute osseous abnormality is present. IMPRESSIONNo acute cardiopulmonary abnormality.Prelimina ry Report Dictated by Resident: Marjorie Hopkins MD., have reviewed this study and agree with theabove report. D-DIMER 2020-10-27 16:15:20 Test Item Value Reference Range Interpretation Comme nts D-DIMER (test code = <0.27 See_Comment [Autom ated message] The [id number]) system which ge nerated this result tra nsmitted reference range : <0.41 ?g/mL (FEU). Th e reference range was not used to interpr et this result as normal/abnormal . CARLOS (test code = CARLOS) This test may be used in conjunction with a clinical pretest probability (PTP) assessment model to exclude venous thromboembolism (VTE) in patients suspected of deep venous thrombosis (DVT) and pulmonary embolism (PE) A D-Dimer value less than 0.50 ?g/ml (FEU) has a negative predicative value of 96 to 100% (95% CI)and 97 to 100% (95% CI) as an aid in the diagnosis of deep vein thrombosis (DVT) and pulmonary embolism when there is low or moderate pretest probability of PE or DVT. D-Dimer values are expressed in initial fibrinogen equivalent units (FEU)" The assay results should be used with other information, including the clinical context, in forming a diagnosis. Lab Interpretation Normal (test code = 67430-1) [facility] [id number] 16:12:55 Test Item Value Reference Range Interpretation Comments TROPONIN I (test 0.001 ng/mL See_Comment [Automated code = 1144356691) message] The system which generated this result transmitted reference range : <=0.034. The reference range was not used to interpret this result as normal/abnormal . CARLOS (test code = Equal or Less than CARLOS) 0.034 ng/ml---Normal ?Note: Cardiac troponin begins to rise 3-4 hours after the onset of ischemia. Repeat in 4-6 hours if the sample was drawn within 3-4 hours of the onset of the symptom and found normal. Between 0.035 and 0.120 ng/mL--- Borderline. Questionable myocardial injury or necrosis ? ?Note: Serial measurement may be necessary to confirm or exclude the diagnosis of myocardial injury or necrosis; Clinical correlation (symptoms, EKGs, imaging studies, and others) required; Repeat in 4-6 hours if clinically indicated. ? Equal or Higher than 0.121 ng/mL---Abnormal. Myocardial Injury or Necrosis Likely ? Biotin has been reported to cause a negative bias, interpret results relative to patient's use of biotin. ? Lab Interpretation Normal (test code = 40508-0) [facility] [id number] 16:09:50 Test Item Value Reference Range Interpretation Comments NT-proBNP (test code 96 pg/mL See_Comment [Autom ated = 6806611257) message] The system which generated this result transmitted reference range : <=125. The reference range was not used to interpret this result as normal/abnormal . CARLOS (test code = CARLOS) Biotin has been reported to cause a negative bias, interpret results relative to patient's use of biotin. Lab Interpretation Normal (test code = 80504-7) [facility] METABOLIC PANEL (00563)2020-10-27 16:01:35 Test Item Value Reference Range Interpretation Comments NA (test code = 140 mmol/L 135-145 1179503778) K (test code = 3.5 mmol/L 3.5-5.0 3452864259) CL (test code = 105 mmol/L 98-108 8695494112) CO2 TOTAL (test code 26 mmol/L 23-31 = 2142466066) AGAP (test code = 2-16 2369390748) BUN (test code = 10 mg/dL 7-23 2774299378) GLUCOSE (test code = 100 mg/dL 70-110 3792260858) CREATININE (test code 0.73 mg/dL 0.50-1.04 = 6427462364) TOTAL BILI (test code 0.7 mg/dL 0.1-1.1 = 6966621210) CALCIUM (test code = 8.9 mg/dL 8.6-10.6 0172594218) T PROTEIN (test code 7.2 g/dL 6.3-8.2 = 1651928465) ALBUMIN (test code = 4.3 g/dL 3.5-5.0 1351797031) ALK PHOS (test code = 92 U/L 34-122 4188305738) ALTv (test code = 17 U/L 5-35 1742-6) AST(SGOT) (test code 21 U/L 13-40 = 2220945027) eGFR (test code = mL/min/1.73m2 4993134420) CARLOS (test code = CARLOS) Association of Glomerular Filtration Rate (GFR) and Staging of Kidney Disease* + + +- +| GFR (mL/min/1.73 m2) ?| With Kidney Damage ?| ?Without Kidney Damage+ ------+ ----+ ------+| ?>90 ?| ?Stage one ?| ? Normal ?+ -+ + -+| ?60-89 ?| ?Stage two ?| ? Decreased GFR ? + + +- +| ?30-59 ?| ?Stage three ?| ? Stage three ? + + +- +| ?15-29 ?| ?Stage four ? | ? Stage four ?+ -+ + -+| ?<15 (or dialysis) ? ?| ?Stage five ? | ? Stage five ?+ -+ + -+ *Each stage assumes the associated GFR level has been in effect for at least three months. ?Stages 1 to 5, with or without kidney disease, indicate chronic kidney disease. Notes: Determination of stages one and two (with eGFR >59mL/min/1.73 m2) requires estimation of kidney damage for at least three months as defined by structural or functional abnormalities of the kidney, manifested by either:Pathological abnormalities or Markers of kidney damage (including abnormalities in the composition of the blood or urine or abnormalities in imaging tests). [facility] THRMPLAS [id number] 15:59:34 Test Item Value Reference Range Interpretation Comments APTT Patient (test See_Comment [Automat ed code = 3173-2) message] The system which generated this result transmitted reference range : 23 - 38 Seconds . The reference range was not used to interpr et this result as normal/abnormal . CARLOS (test code = CARLOS) The [facility] patient population mean normal value for aPTT is 30 seconds. Lab Interpretation Normal (test code = 72364-8) [facility] / [id number] 15:57:32 Test Item Value Reference Range Interpretation Comments PROTIME PATIENT (test See_Comment [Auto mated message] code = 5964-2) The system [employer] generated this result transmitted ref erence range: 12.0 - 1 4.7 Seconds. The re ference range was not u sed to interpret this result as normal/abnor mal. INR (test code = 6301-6) Nor mal INR <1.1; Warfarin Therap eutic range 2.0 to 3. 0 or 2.5 to 3.5, dep ending upon the indica tions. Lab Interpretation (test Normal code = 36955-9) [facility]2021-[facility]-11 15:54:20 Test Item Value Reference Range Interpretation Comments APPEARANCE (test code = Cloudy Clear A 7887251048) COLOR (test code = Yellow Yellow 7880400740) PH (test code = 4.8-8.0 4151043502) SP GRAVITY (test code = 1.003-1.030 2486441005) GLU U QUAL (test code = Normal Normal 7093585727) BLOOD (test code = Negative Negative 0217787724) KETONES (test code = Negative Negative 1587873438) PROTEIN (test code = Negative Negative 2887-8) UROBILIN (test code = Normal Normal 2165015081) BILIRUBIN (test code = Negative Negative 0781398766) NITRITE (test code = Negative Negative 5924399293) LEUK SAV (test code = 250/uL Negative A 8263061643) RBC/HPF (test code = See_Comment H [Autom ated message] 0269263625) The system [employer] generated this result transmitted ref erence range: 0 - 3 HP F. The reference range was not used to int erpret this result as normal/abnormal . WBC/HPF (test code = See_Comment H [Autom ated message] 2968316547) The system [employer] generated this result transmitted ref erence range: 0 - 5 HP F. The reference range was not used to int erpret this result as normal/abnormal . BACTERIA (test code = Moderate Negative A 6949368779) MUCOUS (test code = Moderate Negative LPF A 8308783229) SQ EPITH (test code = HPF 3593670876) Lab Interpretation (test Abnormal code = 06518-2) [facility]viewPO[facility] [id number] 15:48:00 Test Item Value Reference Range Interpretation Comments POCT PREG (test code = 1605) negative On board controls acceptable with present C Line (test code = 3574) POCT PREG LOT # (test code = 3575) [id number] POCT PREG TEST DATE (test 05/18/2022 code = 3576) Lab Interpretation (test code = Normal 84984-3) [facility] WITH [id number] 15:46:09 Test Item Value Reference Range Interpretation Comments WBC (test code = See_Comment [Automated message] 7090-2) The system [employer] generated this result transmitted ref erence range: 4.30 - 1 1.10 10*3/?L. The re ference range was not u sed to interpret this result as normal/abnor mal. RBC (test code = See_Comment [Automated message] 159-8) The system [employer] generated this result transmitted ref erence range: 3.93 - 5 .25 10*6/?L. The re ference range was not u sed to interpret this result as normal/abnor mal. HGB (test code = 12.1 g/dL 11.6-15.0 718-7) HCT (test code = 36.6 % 35.7-45.2 4544-3) MCV (test code = 86.5 fL 80.6-95.5 787-2) MCH (test code = 28.6 pg 25.9-32.8 785-6) MCHC (test code = 33.1 g/dL 31.6-35.1 786-4) RDW-SD (test code 40.0 fL 39.0-49.9 = 11646-6) RDW-CV (test code 12.8 % 12.0-15.5 = 788-0) PLT (test code = See_Comment [Automated message] 697-3) The system [employer]EL generated this result transmitted ref erence range: 166 - 35 8 10*3/?L. The re ference range was not u sed to interpret this result as normal/abnor mal. MPV (test code = 10.6 fL 9.5-12.9 75209-0) NRBC/100 WBC (test See_Comment [Automat ed message] code = 8795375311) The syste m which generated this result transmitted ref erence range: 0.0 - 10 .0 /100 WBCs. The refer ence range was not u sed to interpret this result as normal/abnor mal. NRBC x10^3 (test <0.01 See_Comment [Automated message] code = 5995246325) The syste m which generated this result transmitted ref erence range: 10*3/?L. The reference range was not used to interpr et this result as normal/abnormal . GRAN MAT (NEUT) % 69.9 % (test code = 770-8) IMM GRAN % (test 0.40 % code = 0205621770) LYMPH % (test code 21.0 % = 736-9) MONO % (test code 7.4 % = 5905-5) EOS % (test code = 1.1 % 713-8) BASO % (test code 0.2 % = 706-2) GRAN MAT 5.85 10*3/uL 1.88-7.09 x10^3(ANC) (test code = 4374566862) IMM GRAN x10^3 0.03 10*3/uL 0.00-0.06 (test code = 7534205117) LYMPH x10^3 (test 1.76 10*3/uL 1.32-3.29 code = 731-0) MONO x10^3 (test 0.62 10*3/uL 0.33-0.92 code = 742-7) EOS x10^3 (test 0.09 10*3/uL 0.03-0.39 code = 711-2) BASO x10^3 (test <0.03 0.01-0.07 code = 704-7) [facility]ALLOP[facility] TU[facility],[id number] 07:40:00 Test Item Value Reference Range Interpretation Comments FALLOPIAN TUBE,BIOPSY (test code = FALLBX) RUN DATE: 05/11/20 [facility] PAGE 1 RUN TIME: 1042 Specimen Inquiry RUN USER: INTERFACE PATIENT: ROCIO CHOI [facility] #: [id number] AGE/SX: 24/F ROOM: [facility] RE05/04/20REG DR: Lisy Ricks DO : 93 BED: A DIS: 05/06/20 STATUS: DIS IN TLOC: SPEC #: [id number] RECD: 05/05/20 STATUS: PAMELLA REQ #: [id number] MAYELIN: 05/05/20- SUBM DR: Lisy Ricks DO ENTERED: 05/05/20 SP TYPE: FALLBX CAMERON DR: ORDERED: LEVEL IV CODES: [id number] - FALLOPIAN TUBE PROCEDURES: LEVEL IV (Incomplete) TISSUES: FALLOPIAN TUBE, NOS - RIGHT AND LEFT FALLOPIAN TUBE SEGMENTS CLINICAL HISTORY 24 year old, IUP @ 39.1 weeks, previous x3 (kr) FINAL DIAGNOSIS Right fallopian tube, resection: - no pathologic alterations - completely transected lumen demonstrated Left fallopian tube, resection: - benign paratubal cysts (2) - completely transected lumen demonstrated CPT code(s): 74130 x2 cds/kr GROSS DESCRIPTION ANATOMIC SOURCE OF TISSUE (per Requisition): Right and left fallopian tube segments (2 containers) Each specimen is labeled with the patient's name and medical record number. Specimen #1 is designated "right fallopian tube" and consists of a 5 x 0.7 cm pink-purple fallopian tube segment. Fimbriae are identified. Sectioning reveals a pinpoint lumen. Dental Detail Representative sections are submitted in A1. Specimen #2 is designated "left fallopian tube" and consists of a 5.5 x 0.7 cm serra-pink fallopian tube segment with fimbriae. Sectioning reveals a pinpoint lumen. Dental Detail Representative sections are submitted in B1. nolan/bindu 05/05/20 CONTINUED ON NEXT PAGE RUN DATE: 05/11/20 [facility] PAGE 2 RUN TIME: 1042 Specimen Inquiry RUN USER: INTERFACE SPEC #: [id number] PATIENT: ROCIO CHOI #[id number] (Continued) --- Signed Jose Adame 05/08/20 0740 END OF REPORT HGB [id number] 05:28:00 Test Item Value Reference Range Interpretation Comments HEMOGLOBIN (test code = HGB) 10.6 g/dL 10.7-13.9 L HEMATOCRIT (test code = HCT) 32.8 % 32.1-42.1 N AG HEPATITIS B [id number] 13:13:00 Test Item Value Reference Range Interpretation Comments AG HEPATITIS B SURFACE (test code NONREACTIVE NONREACTIVE = HBSAG) IS CONSENT FORM SIGNED FOR HIV TESTING? YAB HEPATITIS C [id number] 13:13:00 Test Item Value Reference Range Interpretation Comments AB HEPATITIS C (test code = NONREACTIVE NONREACTIVE HCVAB) SIGNAL TO CUTOFF (test code = 0.10 <0.80 N CUTOFF) IS CONSENT FORM SIGNED FOR HIV TESTING? YAB [id number] 13:13:00 Test Item Value Reference Range Interpretation Comments AB TREPONEMA (test code = TREPAB) NONREACTIVE NONREACTIVE IS CONSENT FORM SIGNED FOR HIV TESTING? YAB HIV 1 13:13:00 Test Item Value Reference Range Interpretation Comments AB HIV 1 2 (test NONREACTIVE NONREACTIVE Done by Paige Willettaur code = NBV11DD) 4th Gen HIV Ag/Ab Combo Screen IS CONSENT FORM SIGNED FOR HIV TESTING? YCOVID 19 Asymptomatic IH [id number] 12:54:00 Test Item Value Reference Range Interpretation [...] or approved; th e test hasbeen authori jose raul by FDA under an Emerge ncy Use Authorization(E UA) for use by laborato raudel certified under the CLIA thatmeet the re quirements to perform mode rate, high or waivedcomple xity tests. This simran t is authorized for use at thePoint of Car e (POC), i.e., in patien t care settingsoperati ng under a CLIA Certificat e of Waiver, Certifi pradeep ofCompliance, o r Certificate of Accreditation. This test is only authori zedavid for the duration of thedeclaration that circumstances e xist justifying theauthorizatio n of emergency use o f in vitro diagnostic test sfor detection and/o r diagnosis of CO VID-19 under Wpltmhq74 4(b)(1) of the Act, 21 U.S .C. 360bbb-3(b)(1), unless theauthorizatio n is terminated or r evoked sooner. AB [id number] 12:50:00 Test Item Value Reference Range Interpretation Comments AB TREPONEMA (test code = TREPAB) NONREACTIVE NONREACTIVE IS CONSENT FORM SIGNED FOR HIV TESTING? YAB HIV 1 12:50:00 Test Item Value Reference Range Interpretation Comments AB HIV 1 2 (test code = BST68KS) NONREACTIVE IS CONSENT FORM SIGNED FOR HIV TESTING? YAG HEPATITIS B [id number] 12:50:00 Test Item Value Reference Range Interpretation Comments AG HEPATITIS B SURFACE (test code NONREACTIVE NONREACTIVE = HBSAG) IS CONSENT FORM SIGNED FOR HIV TESTING? YAB HEPATITIS C [id number] 12:50:00 Test Item Value Reference Range Interpretation Comments AB HEPATITIS C (test code = HCVAB) NONREACTIVE SIGNAL TO CUTOFF (test code = CUTOFF) <0.80 IS CONSENT FORM SIGNED FOR HIV TESTING? YURINALYSIS W/O [id number] 12:04:00 Test Item Value Reference Range Interpretation Comments UA GLUCOSE DIPSTICK (test code = NEGATIVE NEGATIVE DGLUU) UA KETONE DIPSTICK (test code = NEGATIVE NEGATIVE KETU) UA PROTEIN DIPSTICK (test code = NEGATIVE NEGATIVE PROU) IS NURSE PERFORMING TEST? NCBC W/AUTO [id number] 12:03:00 Test Item Value Reference Range Interpretation [...] REQUIRED (test NORMAL NORMAL code = PLTMR) COVID-19 (ID NOW RAPID TESTING)2020-03-06 16:39:00 Test Item Value Reference Range Interpretation Comments SARS-CoV-2 Rapid ID NOW Not Detected Not Detected (test code = 57192-3) CARLOS (test code = CARLOS) ID NOW COVID-19 Assay is an isothermal nucleic acid amplification test intended for the qualitative detection of nucleic acid from SARS-CoV-2 viral RNA in nasopharyngeal (CATHODE BUILDER) specimens. It is used under Emergency Use Authorization (EUA) by FDA. The limit of detection (LOD) of the assay is 125 Genome Equivalents/mL. A positive result is indicative of the presence of SARS-CoV-2 RNA. ?Clinical correlation with patient history and other diagnostic information is necessary to determine patient infection status. A negative (Not Detected) result does not preclude SARS-CoV-2 infection. In patients with clinical symptoms and other tests that are consistent with SARS-CoV-2 infection, negative results should be treated as presumptive negative and a new specimen should be tested with alternative PCR molecular test. Invalid: Please collect a new specimen for repeat patient testing if clinically indicated. Lab Interpretation Normal (test code = 62079-1) [facility]viewHCG, QUANTITATIVE, [id number] 20:12:00 Test Item Value Reference Range Interpretation Comments BETA HCG (test See_Comment [Automated m essage] code = The system [employer] h [id number]) generated this result transmit adiel reference range : Non- fe male and male patien ts: <5 mIU/mL. The reference range was not used to interpret this result as normal/abnormal . CARLOS (test code Gestational Age ? ? = CARLOS) ?Range (mIU/mL) 1-10 ?Weeks ?[id number] Weeks ?[id number] Weeks ?0352-02086931-85 Weeks ?[id number] Biotin has been reported to cause a negative bias, interpret results relative to patient's use of biotin. [facility]viewPRENATAL WORKUP, BLOOD [id number] 18:50:45 Test Item Value Reference Range Interpretation Comments ABO & RH (test code O Positive Performe d at [facility] = 20) Laboratory Serv [facility] [place] [address] Free: [phone] A No. [id number] IAT (test code = Negative Performed a t [facility] 1185) Laboratory [facility] [place] [address] Free: [phone] A No. [id number] [facility]CB WITH [id number] 17:38:00 Test Item Value Reference Range Interpretation Comments WBC (test code = See_Comment [Automated message] 2290-2) The system mcTEL generated this result transmitted ref erence range: 4.30 - 1 1.10 10*3/?L. The re ference range was not u sed to interpret this result as normal/abnor mal. RBC (test code = See_Comment [Automated message] 739-8) The system [employer]cTEL generated this result transmitted ref erence range: 3.93 - 5 .25 10*6/?L. The re ference range was not u sed to interpret this result as normal/abnor mal. HGB (test code = 11.9 g/dL 11.6-15 718-7) HCT (test code = 35.8 % 35.7-45.2 4544-3) MCV (test code = 87.7 fL 80.6-95.5 787-2) MCH (test code = 29.2 pg 25.9-32.8 785-6) MCHC (test code = 33.2 g/dL 31.6-35.1 786-4) RDW-SD (test code 42.2 fL 39-49.9 = 20084-8) RDW-CV (test code 13.2 % 12-15.5 = 788-0) PLT (test code = See_Comment [Automated message] 777-3) The system whic h generated this result transmitted ref erence range: 166 - 35 8 10*3/?L. The re ference range was not u sed to interpret this result as normal/abnor mal. MPV (test code = 10.0 fL 9.5-12.9 06981-9) NRBC/100 WBC (test See_Comment [Automat ed message] code = 9157235222) The syste m which generated this result transmitted ref erence range: 0.0 - 10 .0 /100 WBCs. The refer ence range was not u sed to interpret this result as normal/abnor mal. NRBC x10^3 (test <0.01 See_Comment [Automated message] code = 1713204034) The syste m which generated this result transmitted ref erence range: 10*3/?L. The reference range was not used to interpr et this result as normal/abnormal . GRAN MAT (NEUT) % 66.6 % (test code = 770-8) IMM GRAN % (test 0.30 % code = 3163857998) LYMPH % (test code 23.9 % = 736-9) MONO % (test code 7.8 % = 5905-5) EOS % (test code = 1.1 % 713-8) BASO % (test code 0.3 % = 706-2) GRAN MAT 6.36 10*3/uL 1.88-7.09 x10^3(ANC) (test code = 3994015286) IMM GRAN x10^3 0.03 10*3/uL 0-0.06 (test code = 9052071687) LYMPH x10^3 (test 2.29 10*3/uL 1.32-3.29 code = 731-0) MONO x10^3 (test 0.75 10*3/uL 0.33-0.92 code = 742-7) EOS x10^3 (test 0.11 10*3/uL 0.03-0.39 code = 711-2) BASO x10^3 (test 0.03 10*3/uL 0.01-0.07 code = 704-7) [facility]
[2021-06-04 23:54] LABS: SARS-COV-2 RT PCR NEGATIVE (NEGATIVE)
[2021-06-05 03:30] LABS: Absolute Lymphocytes (CBC) 3.3 K/uL (0.7-4.9); Basophils % 0.2 % (0-1.3); Hematocrit 37.3 % (36.0-45.0); Lymphocytes % 32.4 % (15.3-44.8); MPV 8.5 fL (7.6-11.3); RBC Red Blood Cell Count 4.37 M/uL (3.86-4.86)
[2021-06-05 03:33] LABS: Protime INR 0.99
[2021-06-05 03:49] LABS: ALT/SGPT 20 U/L (12-78); AST/SGOT 10 U/L (15-37); Albumin 3.4 g/dL (3.4-5.0); Alkaline Phosphatase 119 U/L (45-117); BUN Blood Urea Nitrogen 13 mg/dL (7-18); Bicarbonate 24 mmol/L (21-32); Bilirubin Direct < 0.1 mg/dL (0-0.2); Bilirubin Total 0.3 mg/dL (0.2-1.0); Glucose Level 101 mg/dL (74-106); NT PRO-BNP 30 pg/mL (<125); Potassium 3.7 mmol/L (3.5-5.1); Protein, Total 7.6 g/dL (6.4-8.2); Sodium Level 138 mmol/L (136-145); Troponin (Emerg Dept Use Only) < 0.02 ng/mL (0.0-0.045)
[2021-06-05 03:58] LABS: Thyroid Stimulating Hormone 3.67 uIU/mL (0.360-3.740)
[2021-06-05 05:03] LABS: Urine Blood Negative (Negative); Urine Glucose Negative (Negative); Urine Protein Negative (Negative); Urine Specific Gravity 1.025 (1.005-1.030); Urine pH 5.5 (5.0-7.0)
[2021-06-05 05:07] LABS: Urine Specific Gravity/Preg 1.025 (1.005-1.030)
--- NOTE | 2021-06-05 05:09 | ER ---
Nurse's Notes [facility] Name: Marly Cabrera Age: 25 yrs Sex: Female : 1995 Arrival Date: 06/04/2021 Time: 21:59 Bed Treatment Private MD: Diagnosis: Palpitations;Acute upper respiratory infection, unspecified Presentation: 06/04 22:54 Chief complaint: Patient states: she went to get her 2nd Covid vaccine yesterday and bb she couldn't because her HR was 130 she is having chest pain x 3 days intermittently with a slight cough. Coronavirus screen: cough unrelated to allergies. Ebola Screen: No symptoms or risks identified at this time. Initial Sepsis Screen: Does the patient meet any 2 criteria? No. Patient's initial sepsis screen is negative. Does the patient have a suspected source of infection? No. Patient's initial sepsis screen is negative. Risk Assessment: Do you want to hurt yourself or someone else? Patient reports no desire to harm self or others. Onset of symptoms was June 01, 2021. 22:54 Method Of Arrival: Ambulatory bb 22:54 Acuity: DILLON 4 bb Triage Assessment: 23:00 General: Appears in no apparent distress. Behavior is calm, cooperative. Pain: bb Complains of pain in chest. Neuro: Level of Consciousness is awake, alert, obeys commands, Oriented to person, place, time, situation. Cardiovascular: Reports chest pain, Capillary refill < 3 seconds Patient's skin is warm and dry. Respiratory: Respiratory effort is even, unlabored, Respiratory pattern is regular. GI: No signs and/or symptoms were reported involving the gastrointestinal system. Derm: Skin is pink, warm \T\ dry. Musculoskeletal: Circulation, motion, and sensation intact. 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 - Social history:: Smoking status: Patient denies any tobacco usage or history of. Patient uses alcohol, occasionally. Patient/guardian denies using street drugs. Screenin/18 02:00 Abuse screen: Denies threats or abuse. Nutritional screening: No deficits noted. bb Tuberculosis screening: No symptoms or risk factors identified. Fall Risk None identified. Assessment: 02:00 General: Appears in no apparent distress. Behavior is calm, cooperative. Pain: Denies bb pain. Neuro: Level of Consciousness is awake, alert, obeys commands, Oriented to person, place, time, situation. Cardiovascular: Capillary refill < 3 seconds Patient's skin is warm and dry. Respiratory: Respiratory effort is even, unlabored, Respiratory pattern is regular. GI: No signs and/or symptoms were reported involving the gastrointestinal system. Derm: Skin is pink, warm \T\ dry. Musculoskeletal: Circulation, motion, and sensation intact. 03:15 Pain: Pain does not radiate. Pain began 2-3 days ago. bb 04:16 Reassessment: Patient and/or family updated on plan of care and expected duration. Pain bb level reassessed. Patient is alert, oriented x 3, equal unlabored respirations, skin warm/dry/pink. pt denies pain at this time. 05:03 Reassessment: Patient is alert, oriented x 3, equal unlabored respirations, skin lp1 warm/dry/pink. Patient states feeling better. Patient states symptoms have improved. Vital Signs: 06/04 22:54 BP 135 / 82; Pulse 72; Resp 18 S; Temp 97.7; Pulse Ox 100% on R/A; Weight 119.75 kg bb (R); Height 5 ft. 3 in. (160.02 cm) (R); Pain 6/10; 06/05 04:16 BP 114 / 55; Pulse 86; Resp 16 S; Pulse Ox 100% on R/A; bb 05:30 BP 102 / 67; Pulse 74; Resp 18; Pulse Ox 100% on R/A; lp1 06/04 22:54 Body Mass Index 46.77 (119.75 kg, 160.02 cm) ED Course: 06/04 21:59 Patient arrived in ED. es 23:00 Triage completed. bb 23:00 Arm band placed on Patient placed in waiting room, Patient notified of wait time. bb 23:51 Izaiah Dietrich PA is PHCP. cp 23:51 Dayo De Jesus MD is Attending Physician. cp 06/05 01:16 Izaiah Dietrich PA is PHCP. cp 01:16 Dayo De Jesus MD is Attending Physician. cp 02:00 Patient has correct armband on for positive identification. bb 02:00 No provider procedures requiring assistance completed. bb 02:06 XRAY Chest (1 view) In Process Unspecified. EDMS 02:55 Missed attempt(s): 20 gauge in right hand. Bleeding controlled, band aid applied, bb catheter tip intact. 03:00 Initial lab(s) drawn, by me, sent to lab. EKG done. Inserted saline lock: 20 gauge in bb right antecubital area, using aseptic technique. Blood collected. 03:13 Gena Gonzalez, RN is Primary Nurse. bb 04:17 Patient maintains SpO2 saturation greater than 95% on room air. bb 05:09 Mg Brown MD is Referral Physician. [facility] 05:30 IV discontinued, No redness/swelling at site. Pressure dressing applied. lp1 Administered Medications: No medications were administered Outcome: 05:09 Discharge ordered by . 7 05:30 Discharged to home ambulatory. lp1 05:30 Condition: good 05:30 Discharge instructions given to patient, Instructed on discharge instructions, follow up and referral plans. medication usage, Demonstrated understanding of instructions, follow-up care, medications, Prescriptions given X 1. 05:38 Patient left the ED. lp1 Signatures: Dispatcher [employer] EDNJ Pau Crandall Brenda, RN RN bb Samira Elizondo RN RN 1 Izaiah Dietrich PA PA cp Dayo De Jesus MD MD [facility]
--- NOTE | 2021-06-05 05:09 | EDPHYS ---
Physician Documentation [facility] Name: Marly Cabrera Age: 25 yrs Sex: Female : 1995 Arrival Date: 06/04/2021 Time: 21:59 Bed Treatment Private MD: ED Physician Dayo De Jesus HPI: 06/05 01:35 This 25 yrs old Female presents to ER via Ambulatory with complaints of Chest Pain, cp FAST HEART BEAT, Sore Throat. 01:35 The patient presents with a history of heart racing. cp 01:35 Context: The symptoms occur without known cause. Onset: The symptoms/episode cp began/occurred 1 month(s) ago. Duration: The patient or guardian reports multiple episodes, that are intermittent. Associated signs and symptoms: Pertinent positives: chest pain, SOB, patient c/o cough for past 3 days, sore throat, Pertinent negatives: fever, syncope, vomiting. Severity of symptoms: in the emergency department the symptoms are unchanged despite home interventions. 01:35 Patient reports she was going to receive her second COVID vaccination yesterday but it cp was cancelled due to her HR being in the 130's. 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 - Social history:: Smoking status: Patient denies any tobacco usage or history of. Patient uses alcohol, occasionally. Patient/guardian denies using street drugs. ROS: 06/05 01:40 Constitutional: Negative for chills, fever, poor PO intake. cp 01:40 Cardiovascular: Positive for chest pain, palpitations, Negative for edema. cp 01:40 Respiratory: Positive for cough, with no reported sputum, shortness of breath, on exertion. Negative for wheezing. 01:40 Abdomen/GI: Negative for abdominal pain, nausea, vomiting, and diarrhea. 01:40 Neck: Negative for pain with movement, pain at rest, stiffness. cp 01:40 Back: Negative for pain at rest, pain with movement. 01:40 : Negative for urinary symptoms. 01:40 Neuro: Negative for altered mental status, headache, numbness, syncope, weakness. 01:40 All other systems are negative. cp Exam: 01:45 Constitutional: The patient appears in no acute distress, alert, awake, cp non-diaphoretic, non-toxic, well developed, well nourished, obese. 01:45 Head/Face: Normocephalic, atraumatic. cp 01:45 Eyes: Periorbital structures: appear normal, Conjunctiva: normal, no exudate, no injection, Sclera: no appreciated abnormality, Lids and lashes: appear normal, bilaterally. 01:45 ENT: External ear(s): are unremarkable, Nose: is normal, Mouth: Lips: moist, Oral mucosa: pink and intact, moist, Posterior pharynx: Airway: no evidence of obstruction, patent. 01:45 Neck: ROM/movement: is normal, is supple, without pain, no range of motions limitations. 01:45 Chest/axilla: Inspection: normal, Palpation: is normal, no crepitus, no tenderness. 01:45 Cardiovascular: Rate: normal, Rhythm: regular, Edema: is not appreciated, JVD: is not appreciated. 01:45 Respiratory: the patient does not display signs of respiratory distress, Respirations: normal, no use of accessory muscles, no retractions, labored breathing, is not present, Breath sounds: are clear throughout, no decreased breath sounds, no stridor, no wheezing. 01:45 Abdomen/GI: Exam negative for discomfort, distension, guarding, Inspection: abdomen appears normal. 02:58 ECG was reviewed by the Attending Physician. cp Vital Signs: 06/04 22:54 BP 135 / 82; Pulse 72; Resp 18 S; Temp 97.7; Pulse Ox 100% on R/A; Weight 119.75 kg bb (R); Height 5 ft. 3 in. (160.02 cm) (R); Pain 6/10; 06/05 04:16 BP 114 / 55; Pulse 86; Resp 16 S; Pulse Ox 100% on R/A; bb 05:30 BP 102 / 67; Pulse 74; Resp 18; Pulse Ox 100% on R/A; lp1 06/04 22:54 Body Mass Index 46.77 (119.75 kg, 160.02 cm) bb MDM: 02:00 Differential diagnosis: arrythmia, dehydration, stress disorder, anxiety, electrolyte cp abnormality. 02:09 Patient medically screened. 04:31 Test interpretation: by ED physician or midlevel provider: ECG, plain radiologic cp studies, chest xray negative for infiltrates. 06/04 23:04 Order name: COVID-19/FLU A+B (Document "Date of Onset" if Symptomatic); Complete Time: bb 01:22 06/05 01:22 Interpretation: Reviewed. 06/05 01:42 Order name: Basic Metabolic Panel 06/05 01:42 Order name: CBC with Diff 06/05 01:42 Order name: LFT's 06/05 01:42 Order name: Magnesium 06/05 01:42 Order name: NT PRO-BNP; Complete Time: 04:22 06/05 01:42 Order name: PT-INR; Complete Time: 03:46 06/05 03:46 Interpretation: Reviewed. 06/05 01:42 Order name: Troponin (emerg Dept Use Only); Complete Time: 04:22 06/05 01:42 Order name: D-Dimer; Complete Time: 03:46 06/05 03:46 Interpretation: Reviewed. 06/05 01:43 Order name: Basic Metabolic Panel; Complete Time: 04:22 EDMS 06/05 04:23 Interpretation: Reviewed. 06/05 01:43 Order name: CBC with Automated Diff; Complete Time: 03:46 EDMS 06/05 03:46 Interpretation: Reviewed. 06/05 01:43 Order name: Liver (Hepatic) Function; Complete Time: 04:22 EDMS 06/05 04:22 Interpretation: Normal except: AST 10; ALK 119; GLOB 4.2; A/G 0.8. 06/05 01:43 Order name: Magnesium; Complete Time: 04:22 EDMS 06/05 04:24 Interpretation: Reviewed. 06/05 02:09 Order name: TSH 06/05 01:42 Order name: XRAY Chest (1 view) 06/05 01:42 Order name: EKG; Complete Time: 01:43 06/05 01:42 Order name: EKG - Nurse/Tech; Complete Time: 03:16 06/05 01:42 Order name: IV Saline Lock; Complete Time: 03:16 cp 06/05 01:42 Order name: Labs collected and sent; Complete Time: 03:16 cp 06/05 01:42 Order name: O2 Per Protocol; Complete Time: 03:16 cp 06/05 01:42 Order name: O2 Sat Monitoring; Complete Time: 03:16 cp 06/05 01:42 Order name: Urine Dipstick-Ancillary (obtain specimen); Complete Time: 05:03 cp 06/05 02:09 Order name: T3 Free cp 06/05 02:10 Order name: Thyroid Stimulating Hormone; Complete Time: 04:22 EDMS 06/05 04:23 Interpretation: Within normal limits. cp 06/05 02:10 Order name: T3 Free; Complete Time: 04:22 EDMS 06/05 04:23 Interpretation: Reviewed. 06/05 03:10 Order name: UDS cp 06/05 03:11 Order name: Urine Drug Screen EDOK 06/05 05:03 Order name: Urine Dipstick-Ancillary EDOK 06/05 05:04 Order name: Urine --Ancillary (enter results) cs9 06/05 01:42 Order name: Urine Test (obtain specimen); Complete Time: 05:03 cp EC:58 Rate is 57 beats/min. Rhythm is regular. ND interval is normal. QRS interval is normal. cp QT interval is normal. T waves are Inverted in lead aVR. Interpreted by me. Reviewed by me. Administered Medications: No medications were administered Disposition: 07:01 Co-signature as Attending Physician, Dayo De Jesus MD. [facility] Disposition Summary: 06/05/21 05:09 Discharge Ordered Location: Home [facility] Problem: new 7 Symptoms: have improved mh7 Condition: Stable mh7 Diagnosis - Palpitations mh7 - Acute upper respiratory infection, unspecified 7 Followup: cp - With: - When: next week - Reason: palpitations Discharge Instructions: - Discharge Summary Sheet cp - Palpitations cp - Upper Respiratory Infection, Adult cp - Cool Mist Vaporizer cp Forms: - Medication Reconciliation Form 7 - Thank You Letter 7 - Antibiotic Education 7 - Prescription Opioid Use [facility] Prescriptions: - Tessalon Perles 100 mg Oral Capsule - take 2 capsule by ORAL route every 8 hours As needed; 30 capsule; Refills: 0, cp Product Selection Permitted Signatures: Dispatcher [employer] EDMS Gonzalez, Gena, RN RN bb Izaiah Dietrich PA PA Dayo Thurston MD MD mh7 Corrections: (The following items were deleted from the chart) 16:34 01:35 Associated signs and symptoms: Pertinent positives: chest pain, SOB, patient c/o cp cough for past 2 days, sore throat, Pertinent negatives: fever, syncope, vomiting, cp
[2021-06-05 05:22] LABS: Barbiturates NEGATIVE (NEGATIVE); Benzodiazepines NEGATIVE (NEGATIVE); Cocaine NEGATIVE (NEGATIVE); METHAMPHETAM NEGATIVE (NEGATIVE); Methadone NEGATIVE (NEGATIVE); Opiates NEGATIVE (NEGATIVE); Phencyclidine NEGATIVE (NEGATIVE); THC Cannibis NEGATIVE (NEGATIVE)
[2021-06-05 05:59] VITALS: TEMP 97.7; O2SAT 100
[2021-06-05 06:00] VITALS: BP 114/55
--- NOTE | 2021-06-05 10:41 | RAD REPORT ---
EXAM DESCRIPTION: RAD - Chest Single View - 06/05/2021 2:07 am CLINICAL HISTORY: Chest pain;SOB Chest pain. COMPARISON: Chest Single View dated 10/22/2020; Chest Single View dated 12/25/2019 FINDINGS: Portable technique limits examination quality. Bilateral interstitial lung opacities, greater on the right. This may represent interstitial edema or viral infection. The heart is normal in size. No displaced fractures.
--- NOTE | 2021-06-07 08:13 | EKG ---
Test Date: 2021-06-05 Test Time: 02:50:05 User Interface Designer: IRMA MEASUREMENT RESULTS: Intervals: Rate: 57 CA: 162 QRSD: 82 QT: 426 QTc: 414 [place]: P: 30 CA: 162 QRS: 52 T: 26 INTERPRETIVE STATEMENTS: Sinus bradycardia with sinus arrhythmia Otherwise normal ECG Compared to ECG 10/22/2020 17:41:50 Sinus rhythm no longer present Electronically Signed On 06-07-21 08:12:06 SUPERVISOR DISPLAY FABRICATION by Zbigniew Cortez
== END 2021-06-05 05:38 | disposition home or self-care (01) ==
LOC: ER 21:54
DX: J06.9 Acute upper respiratory infection, unspecified (principal); Z20.822 Contact with and (suspected) exposure to COVID-19; Z91.048 Other nonmedicinal substance allergy status
CPT/HCPCS: 93005; 85025; 80048; 36415; 83735; 81025; 85610; 85379; 80076; 84443; 81003; 84484; 84481; 83880; 0240U; 80307; 71045; 99284

== ENCOUNTER 2023-01-03 09:31 | Emergency (ER) | payer OTHER ==
--- OUTSIDE RECORDS SUMMARY | 2023-01-03 09:37 | XMS REPORT | Continuity of Care Document ---
:1995 Author Organization [facility] [place] t Address [address] [facility] [address]. [address] [place] [address] Care Team Providers Name Role Phone Pcp, Patient Does Not Have A Primary Care Physician [id number] Lisy Ricks Attending Clinician Unavailable Manuel Attending Clinician Unavailable BALBINA JACKSON Attending Clinician Unavailable Gena Herron MA Attending Clinician Unavailable UNKNOWN, ATTENDING Attending Clinician Unavailable HAWA BRADLEY Attending Clinician Unavailable Hawa Cevallos Attending Clinician Unknown, Attending Attending Clinician Unavailable Provider, [facility] Attending Clinician Unavailable RYAN URRUTIA Attending Clinician Unavailable Ryan Hill Attending Clinician LIVE Attending Clinician Unavailable Catrina Amos MD Attending Clinician UTE PÉREZ Attending Clinician Unavailable 2, [facility] Attending Clinician Unavailable Ute Pérez MD Attending Clinician KADE NAVARRETE Attending Clinician Unavailable Kade Martin Attending Clinician Vanesa Saunders Attending Clinician Doctor Unassigned, [place] Attending Clinician Unavailable PINO MILTON Attending Clinician Unavailable TOBIAS ARTEAGA Attending Clinician Unavailable Tobias Sweeney S Attending Clinician Pob, [facility] Main Attending Clinician Unavailable Andrew Bui MD Attending Clinician ANDREW BUI Attending Clinician Unavailable CHOCO HARRIS Attending Clinician Unavailable TUNDE MORAN Attending Clinician Unavailable UTE PÉREZ Admitting Clinician Unavailable Lisy Ricks Admitting Clinician Unavailable Manuel Admitting Clinician Unavailable LIVE Admitting Clinician Unavailable TOBAIS ARTEAGA Admitting Clinician Unavailable Ute Pérez MD Admitting Clinician Payers Payer Name Policy Type Policy Number Effective Date Expiration Date Paige gaffney [facility] [id number] 2019 CHOICE MEDICAID 00:00:00 [place] [id number] 2014 00:00:00 [facility] [id number] 2019 CHOICE (MEDICAID 00:00:00 REPLACEMENT - HMO) MEDICAID [facility] [id number] 2019 HEALTH CHOICE 00:00:00 Problems Condition Condition Condition Status Onset Resolution [...] Me dical of of Branch 40.0-49.9 40.0-49.9 Morbid Morbid Disease Active Univers obesity obesity 3-26 [place] of with body [place] mass [place] mass index 00 [place] dical of of Branch 40.0-49.9 40.0-49.9 Abnormal Abnormal Disease Active Unive rs genetic genetic -22 ity of test in test in 00:00: [place] 00 [facility] Branch Contact Contact Problem Active [place] dermat[facility] Allergies, Adverse Reactions, Alerts Allergy Allergy Status Severity Reaction(s) Onset Inactive Treating Comm ents Source Name Type Date Date Clinician nickel DA Active AR 2019-06 [facility] [place] shrimp FA Active SV 2019-06 [facility] [place] SEAFOOD DA Active AR RASH 2019-06 [facility] [place] nickel DA Active AR RASH 2019-06 [facility] [place] shrimp FA Active SV ANAPHYLAXIS 2019-06 [facility] 1-16 [facility] [place] NICKEL DRUG Active Hives Univers INGREDI 3-11 ity of 00:00: [place] 00 Medical Branch Nickel Propensi Active Hives Univers ty to 3-11 ity of adverse 00:00: [place] reaction 00 Medical s Branch Social History Social Habit Start Date Stop Date Quantity Comments Source ASSERTION 2019-08-18 University of 00:00:00 [place] [facility] History SDOH University o f Alcohol Comment [place] [facility] History SDOH University o f Alcohol Std Drinks [place] [facility] History SDOH University o f Alcohol Binge [place] [facility] Gender identity [facility] Sexual orientation [facility] Exposure to 2022-05-03 2022-05-13 Not sure University of SARS-CoV-2 (event) 00:00:00 11:22:00 [facility] Tobacco use and 2022-05-13 2022-05-13 Smokeless Universit y of exposure 00:00:00 00:00:00 tobacco non-user [facility] dical [place] History SDOH 2019-09-12 2019-09-12 2 University o f Alcohol Frequency 00:00:00 00:00:00 [facility] edical [place] Alcohol intake 2017-03-29 2017-03-29 Current [facility] 00:00:00 00:00:00 non-drinker of Hospital alcohol (finding) History of Social 2017-03-29 2017-03-[address] function 00:00:00 00:00:00 Hospital Sex Assigned At [birth year] [facility] 00:00:00 [facility]00 [facility] Smoking Status Start Date Stop Date Source Former Smoker [facility] Never smoked tobacco [facility] Medications Ordered Filled Start Stop Current Ordering Indication Dosage Frequency Signature Comments Components Source Medication Medication Date Date Medication? Clinician (SIG) Name Name dexAMETHaso 2021-06- No [id number] 12mg U nivers ne 07-13 ity of (DECADRON) 18:21: 18:24 [place] tablet 12 00 :00 [facility] Branch dexAMETHaso 2021-06- No [id number] 12mg 12 mg, Univers ne 07-13 Oral, ity of (DECADRON) 18:21: 18:24 ONCE, 1 [place] as tablet 12 00 :00 dose, On Medica l mg Fri Branch 05/13/22 at 1230, Routine bromphenira Yes [id number] 5mL Take 5 mL Univers mine-pseudo 5-02 by mouth 4 it y of ephedrine-D 00:00: (four[place] (BROMFED 00 times Medical DM) 2-30-10 daily as Bran ch mg/5 mL needed for syrup Congestion /Allergies . benzonatate Yes [id number] 200mg Take 2 Univers 100 mg 5-02 capsules ity of capsule 00:00: by mouth [place] 00 every 8 Medical (eight) Branch hours as needed for Cough. bromphenira Yes [id number] 5mL Take 5 mL Univers mine-pseudo 5-02 by mouth 4 it y of ephedrine-D 00:00: (four[place] (BROMFED 00 times Medical DM) 2-30-10 daily as Bran ch mg/5 mL needed for syrup Congestion /Allergies . benzonatate 2021-0 Yes [id number] 200mg Take 2 Univers 100 mg 5-02 capsules ity of capsule 00:00: by mouth [place] 00 every 8 Medical (eight) Branch hours as needed for Cough. bromphenira 2021-0 Yes [id number] 5mL Take 5 mL Univers mine-pseudo 5-02 by mouth 4 it y of ephedrine-D 00:00: (four[place] (BROMFED 00 times Medical DM) 2-30-10 daily as Bran ch mg/5 mL needed for syrup Congestion /Allergies . benzonatate 2021-0 Yes [id number] 200mg Take 2 Univers 100 mg 5-02 capsules ity of capsule 00:00: by mouth [place] 00 every 8 Medical (eight) Branch hours as needed for Cough. bromphenira 2021-0 Yes [id number] 5mL Take 5 mL Univers mine-pseudo 5-02 by mouth 4 it y of ephedrine-D 00:00: (four[place] (BROMFED 00 times Medical DM) 2-30-10 daily as Bran ch mg/5 mL needed for syrup Congestion /Allergies . benzonatate 2021-0 Yes [id number] 200mg Take 2 Univers 100 mg 5-02 capsules ity of capsule 00:00: by mouth [place] 00 every 8 Medical (eight) Branch hours as needed for Cough. bromphenira 2021-0 Yes [id number] 5mL Take 5 mL Univers mine-pseudo 5-02 by mouth 4 it y of ephedrine-D 00:00: (four[place] (BROMFED 00 times Medical DM) 2-30-10 daily as Bran ch mg/5 mL needed for syrup Congestion /Allergies . benzonatate 2021-0 Yes [id number] 200mg Take 2 Univers 100 mg 5-02 capsules ity of capsule 00:00: by mouth [place] 00 every 8 Medical (eight) Branch hours as needed for Cough. bromphenira 202-0 Yes [id number] 5mL Take 5 mL Univers mine-pseudo 5-02 by mouth 4 it y of ephedrine-D 00:00: (four[place] (BROMFED 00 times Medical DM) 2-30-10 daily as Bran ch mg/5 mL needed for syrup Congestion /Allergies . benzonatate Yes [id number] 200mg Take 2 Univers 100 mg 5-02 capsules ity of capsule 00:00: by mouth [place] every 8 Medical (eight) Branch hours as needed for Cough. bromphenira Yes [id number] 5mL Take 5 mL Univers mine-pseudo 5-02 by mouth 4 it y of ephedrine-D 00:00: (four) [place] (BROMFED 00 times Medical DM) 2-30-10 daily as Bran ch mg/5 mL needed for syrup Congestion /Allergies . benzonatate Yes [id number] 200mg Take 2 Univers 100 mg 5-02 capsules ity of capsule 00:00: by mouth [place] every 8 Medical (eight) Branch hours as needed for Cough. amoxicillin 2021- No [id number] 1{tbl} Take 1 Univers -clavulanat 5-02 05-10 tablet by it y of e 00:00: 04:59 mouth 2 [place] (AUGMENTIN) 00 :00 (two) Medical 875-125 mg times Branch per tablet daily for 7 days. amoxicillin 2021- No [id number] 1{tbl} Take 1 Univers -clavulanat 5-02 05-10 tablet by it y of e 00:00: 04:59 mouth 2 [place] (AUGMENTIN) 00 :00 (two) Medical 875-125 mg times Branch per tablet daily for 7 days. Yes Take by [facility] vit 2-11 mouth. ity of calc,iron,f 12:35: [place] [id number] Medical ( Branch VITAMIN ORAL) Yes Take by [facility] vit 2-11 mouth. ity of calc,iron,f 12:35: [place] [address] Medical ( Branch VITAMIN ORAL) Yes Take by [facility] vit 2-11 mouth. ity of calc,iron,f 12:35: [place] [address] Medical ( Branch VITAMIN ORAL) Yes Take by [facility] vit 2-11 mouth. ity of calc,iron,f 12:35: [place] [address] Medical ( Branch VITAMIN ORAL) Yes Take by [facility] vit 2-11 mouth. ity of calc,iron,f 12:35: [place] [address] Medical ( Branch VITAMIN ORAL) Yes Take by Univer s vit 2-11 mouth. ity of calc,iron,f 12:35: [place] [address] Medical ( Branch VITAMIN ORAL) Yes Take by Univer s vit 2-11 mouth. ity of calc,iron,f 12:35: [place] [address] Medical ( Branch VITAMIN ORAL) Yes Take by Univer s vit 2-11 mouth. ity of calc,iron,f 12:35: [place] [address] Medical ( Branch VITAMIN ORAL) Yes Take by Univer s vit 2-11 mouth. ity of calc,iron,f 12:35: [place] [address] Medical ( Branch VITAMIN ORAL) Yes Take by Univer s vit 2-11 mouth. ity of calc,iron,f 12:35: [address] ( Branch VITAMIN ORAL) aspirin 2020- No 325mg 325 mg, Unive rs tablet 325 10-27 Oral, ity of mg 16:30: 15:37 ONCE, 1 [place] 00 :00 dose, Tue Medical 10/27/20 at Branch 1130, STAT ciprofloxac 2020- No [id number] 250mg Take 1 Univers in HCl 250 10-27 tablet by ity of mg tablet 00:00: 00:00 mouth 2 [place] 00 :00 (two) Medical times Branch daily. Yes Take by Univer s vit 9-18 mouth. ity of calc,iron,f 18:27: [place] [address] Medical ( Branch VITAMIN ORAL) Yes Take by Univer s vit 9-18 mouth. ity of calc,iron,f 18:27: [place] [address] Medical ( Branch VITAMIN ORAL) Yes Take by Univer s vit 9-18 mouth. ity of calc,iron,f 18:27: [place] [address] Medical ( Branch VITAMIN ORAL) Yes Take by Univer s vit 9-18 mouth. ity of calc,iron,f 13:27: [place] [address] Medical ( Branch VITAMIN ORAL) Yes Take by [place] [facility] vit 3-26 mouth. ity of calc,iron,f 19:23: [place] [address] Medical ( Branch VITAMIN ORAL) Yes Take by [place] [facility] vit 3-26 mouth. ity of calc,iron,f 19:23: [place] [address] Medical ( Branch VITAMIN ORAL) ondansetron 2017 Yes 4mg Q8H Take 1 Meth loni ODT (ZOFRAN 0-11 tablet (4 st ODT) 4 MG 00:00: mg total) Hos mera disintegrat 00 by mouth l ing tablet every 8 (eight) hours as [...] ONCE DAYS DAYS DAILY FOR 4 DAYS Cymbalta 30 Cymbalta 30 No 1capsul Q1D Cymbalta [place] mg mg e(s) 30 mg da capsule,del capsule,del capsule,de Medical ayed ayed layed Group release release release Take 1 Take 1 Take 1 capsule capsule capsule every day every day every day by oral by oral by oral route. route. route. Immunizations Ordered Filled Immunization Date Status Comments [facility] e Immunization Name Name Influenza Virus 2021-04-19 Completed Universit y of Vaccine 00:00:00 [facility] Influenza Virus 2021-04-19 Completed Universit y of Vaccine 00:00:00 [facility] Influenza Virus 2021-04-19 Completed Universit y of Vaccine 00:00:00 [facility] Influenza Virus 2021-04-19 Completed Universit y of Vaccine 00:00:00 [facility] Influenza Virus 2021-04-19 Completed Universit y of Vaccine 00:00:00 [facility] Influenza Virus 2021-04-19 Completed Universit y of Vaccine 00:00:00 [facility] Influenza Virus 2021-04-19 Completed Universit y of Vaccine 00:00:00 [facility] Influenza Virus 2021-04-19 Completed Universit y of Vaccine 00:00:00 [facility] Influenza Virus 2021-04-19 Completed Universit y of Vaccine 00:00:00 [facility] Hep B, Adol or Pedi 2013-12-04 Completed Unive rsity of Dosage 00:00:00 [facility] Hep B, Adol or Pedi 2013-11-06 Completed Unive rsity of Dosage 00:00:00 [facility] Vital Signs Vital Name Observation Time Observation Value Comments Source BP Diastolic 2022-11-16 00:00:00 90 mm[Hg] [facility] Height 2022-11-16 00:00:00 64 [in_i] [facility] BMI (Body Mass 2022-11-16 00:00:00 47.7 kg/m2 [facility] [employer] [facility] Index) [facility] BP Systolic 2022-11-16 00:00:00 128 mm[Hg] [facility] Body Weight 2022-11-16 00:00:00 4448 [oz_av] [facility] Systolic blood 2022-05-16 21:53:00 132 mm[Hg] Univer sity of pressure [facility] Diastolic blood 2022-05-16 21:53:00 85 mm[Hg] Unive rsity of pressure [place] [facility] Heart rate 2022-05-16 21:53:00 84 /min Universi ty of [place] [facility] Body temperature 2022-05-16 21:53:00 37.28 Celia Univ ersity of [place] [facility] Respiratory rate 2022-05-16 21:53:00 18 /min Univ ersity of [place] [facility] Body height 2022-05-16 21:53:00 160 cm Universi ty of [place] [facility] Body weight 2022-05-16 21:53:00 129.275 kg Universi ty [facility] [place] [facility] BMI 2022-05-16 21:53:00 50.49 kg/m2 Universi ty of [place] [facility] Oxygen saturation in 2022-05-16 21:53:00 97 /min University of Arterial blood by [place] [employer] yuki Pulse oximetry Branch Systolic blood 2022-05-13 17:47:00 110 mm[Hg] Univer sity of pressure [place] [facility] Diastolic blood 2022-05-13 17:47:00 74 mm[Hg] Unive rsity of pressure [place] [facility] Heart rate 2022-05-13 17:47:00 110 /min Universi ty of [place] [facility] Body temperature 2022-05-13 17:47:00 37 Celia Univ ersity of [place] [facility] Respiratory rate 2022-05-13 17:47:00 16 /min Univ ersity of [place] [facility] Body height 2022-05-13 17:47:00 160 cm [facility]i ty [facility] [place] [facility] Body weight 2022-05-13 17:47:00 129.094 kg Universi ty of [place] [facility] BMI 2022-05-13 17:47:00 50.41 kg/m2 Universi ty of [place] [facility] Oxygen saturation in 2022-05-13 17:47:00 99 /min University of Arterial blood by [place] [employer] yuki Pulse oximetry Branch Systolic blood 2021-10-18 19:30:00 105 mm[Hg] Univer sity of pressure [place] [facility] Diastolic blood 2021-10-18 19:30:00 66 mm[Hg] Unive rsity of pressure [place] [facility] Heart rate 2021-10-18 19:30:00 94 /min Universi ty of [place] [facility] Body temperature 2021-10-18 19:30:00 36.89 Celia Univ ers[facility] [place] [facility] Respiratory rate 2021-10-18 19:30:00 18 /min Univ ersity of [place] [facility] Body height 2021-10-18 19:30:00 160 cm Universi ty of [place] [facility] Body weight 2021-10-18 19:30:00 125.51 kg Universi ty of [place] [facility] BMI 2021-10-18 19:30:00 49.02 kg/m2 Universi ty of [place] [facility] Oxygen saturation in 2021-10-18 19:30:00 98 /min University of Arterial blood by [facility] Pulse oximetry Branch Systolic blood 2021-08-05 20:25:00 102 mm[Hg] Univer sity of pressure [place] [facility] Diastolic blood 2021-08-05 20:25:00 71 mm[Hg] Unive rsity of pressure [place] [facility] Heart rate 2021-08-05 20:25:00 106 /min Universi ty of [place] [facility] Body temperature 2021-08-05 20:25:00 37 Celia Univ ersity of [place] [facility] Body height 2021-08-05 20:25:00 160 cm Universi ty of [place] [facility] Body weight 2021-08-05 20:25:00 124.376 kg Universi ty of [place] [facility] BMI 2021-08-05 20:25:00 48.57 kg/m2 Universi ty of [place] [facility] Oxygen saturation in 2021-08-05 20:25:00 98 /min University of Arterial blood by [facility] Pulse oximetry Branch Systolic blood 2021-07-30 18:37:00 142 mm[Hg] Univer sity of pressure [place] [facility] Diastolic blood 2021-07-30 18:37:00 100 mm[Hg] Unive rsity of pressure [place] [facility] Heart rate 2021-07-30 18:33:00 72 /min Universi ty of [place] [facility] Body temperature 2021-07-30 18:33:00 36.28 Celia Univ ersity of [place] [facility] Respiratory rate 2021-07-30 18:33:00 18 /min Univ ersity of [place] [facility] Body height 2021-07-30 18:33:00 160 cm Universi ty of [place] [facility] Body weight 2021-07-30 18:33:00 123.945 kg Universi ty of [place] [facility] BMI 2021-07-30 18:33:00 48.40 kg/m2 Universi ty of [place] [facility] Oxygen saturation in 2021-07-30 18:33:00 97 /min University of Arterial blood by [facility] Pulse oximetry Branch Systolic blood 2020-10-27 16:00:00 120 mm[Hg] Univer sity of pressure [place] [facility] Diastolic blood 2020-10-27 16:00:00 67 mm[Hg] Unive rsity of pressure [place] [facility] Heart rate 2020-10-27 16:00:00 78 /min Universi ty of [place] [facility] Respiratory rate 2020-10-27 16:00:00 21 /min Univ ersity of [place] [facility] Oxygen saturation in 2020-10-27 16:00:00 98 /min University of Arterial blood by [facility] Pulse oximetry Branch Body temperature 2020-10-27 14:50:00 36.56 Celia Univ ersity of [place] [facility] Body height 2020-10-27 14:50:00 160 cm Universi ty of [place] [facility] Body weight 2020-10-27 14:50:00 113.399 kg Universi ty [facility] [place] [facility] BMI 2020-10-27 14:50:00 44.29 kg/m2 Universi ty [facility] [place] [facility] Body temperature 2020-03-06 15:53:00 36.44 Celia Univ ersity of [place] [facility] Respiratory rate 2020-03-06 15:53:00 18 /min Univ ersity of [place] [facility] Body height 2020-03-06 15:53:00 160 cm Universi ty [facility] [place] [facility] Body weight 2020-03-06 15:53:00 117.028 kg Universi ty [facility] [place] [facility] BMI 2020-03-06 15:53:00 45.70 kg/m2 Universi ty [facility] [place] [facility] Oxygen saturation in 2020-03-06 15:53:00 97 /min University of Arterial blood by [facility] Pulse oximetry Branch Body temperature 2020-03-06 15:53:00 36.44 Celia Univ ersity of [place] [facility] Respiratory rate 2020-03-06 15:53:00 18 /min Univ ersity of [place] [facility] Body height 2020-03-06 15:53:00 160 cm Universi ty [facility] [place] [facility] Body weight 2020-03-06 15:53:00 117.028 kg [facility] BMI 2020-03-06 15:53:00 45.70 kg/m2 [facility] Oxygen saturation in 2020-03-06 15:53:00 97 /min [facility] blood by [facility] Pulse oximetry Branch BP Diastolic 2018-06-25 00:00:00 73 mm[Hg] [facility] Height 2018-06-25 00:00:00 64 [in_i] [facility] BMI (Body Mass 2018-06-25 00:00:00 38.1 kg/m2 [facility] [employer] Medical Index) Group BP Systolic 2018-06-25 00:00:00 143 mm[Hg] [facility] Body Weight 2018-06-25 00:00:00 3555 [oz_av] [facility] Procedures Procedure Date / Time Performing Clinician Source Performed POCT MOLECULAR FLU 2022-05-16 22:11:00 Unknown, Attending [facility] POCT MOLECULAR STREP 2022-05-16 22:09:00 Unknown, Attending [facility] POCT MOLECULAR STREP 2022-05-13 17:58:00 Unknown, Attending [facility] POCT MOLECULAR FLU 2022-05-13 17:57:00 Unknown, Attending [facility] POCT TEST 2021-08-05 00:00:00 Ute Pérez [facility] POCT MOLECULAR STREP 2021-07-30 18:41:00 Vanesa Soto [facility] ASSIGNMENT OF BENEFITS 2021-07-30 18:26:36 Doctor Unassigned, No [facility] XR CHEST 1 VW 2020-10-27 16:06:16 Tobias Arteaga [facility] POCT TEST 2020-10-27 15:48:00 Tobias Arteaga [facility] URINALYSIS 2020-10-27 15:37:00 Tobias Arteaga [facility] N-TERMINAL PRO-BNP 2020-10-27 15:25:00 Tobias Arteaga [facility] TROPONIN I 2020-10-27 15:25:00 Tobias Arteaga [facility] COMP. METABOLIC PANEL 2020-10-27 15:25:00 Tobias Arteaga [facility] ([id number]) Medical Branch CBC WITH DIFF 2020-10-27 15:25:00 Tobias Arteaga [facility] PROTHROMBIN TIME / INR 2020-10-27 15:25:00 Tobias Arteaga [facility] D-DIMER 2020-10-27 15:25:00 Tobias Arteaga [facility] ACTIVATED PARTIAL 2020-10-27 15:25:00 Tobias Arteaga [facility] THRMPLAS [facility] NOTICE OF PRIVACY 2020-10-27 14:41:05 Doctor Unassigned, No [facility] CONSENT/REFUSAL FOR 2020-10-27 14:40:51 [facility] [id number] 2020-05-04 00:00:00 MONMA.05 [facility] [id number] 2020-05-04 00:00:00 MONMA.05 [facility] COVID-19 (ID NOW RAPID 2020-03-06 16:10:00 Ute Pérez [facility] TESTING) Medical Branch NOTICE OF PRIVACY 2020-03-06 15:23:22 Doctor Unassigned, No [facility] CONSENT/REFUSAL FOR 2020-03-06 15:23:04 Doctor Unassigned, No [facility] DIAGNOSIS AND TREATMENT [facility] ASSIGNMENT OF BENEFITS 2020-03-06 15:22:54 Doctor Unassigned, No [facility] TOTAL BETA HCG ASSAY 2019-09-13 17:26:00 Andrew Bui [facility] CBC WITH DIFFERENTIAL 2019-09-13 17:26:00 Andrew Bui [facility] HB ABO GROUPING 2019-09-13 17:24:00 Andrew Bui [facility] Ligation of Fallopian 2019-06-19 [facility] Caesarean Section 2011-06-19 00:00:00 [facility] Plan of Care Planned Activity Planned Date Details Comments Source Future Scheduled Test 2023-01-03 Screening for [facility] 09:34:22 malignant neoplasm of cervix (procedure) [code = 721296116] Future Scheduled Test 2023-01-03 INFLUENZA VACCINE [facility] 09:34:22 [code = INFLUENZA VACCINE] Future Scheduled Test 2023-01-03 COVID-19 VACCINE [facility] 09:34:22 (#1) [code = COVID-19 VACCINE (#1)] Diagnostic Test 2022-11-16 CMP, serum or [facility] Pending 00:00:00 plasma [code = CMP, Group serum or plasma] Diagnostic Test 2022-11-16 urinalysis [facility] Pending 00:00:00 complete, reflex Group culture [code = urinalysis complete, reflex culture] Diagnostic Test 2022-11-16 CBC w/ auto diff [facility] Pending 00:00:00 [code = CBC w/ auto Group diff] Diagnostic Test 2022-11-16 lipid panel, serum [facility] [employer] [facility] [employer] [facility] Pending 00:00:00 [code = lipid Group panel, serum] Diagnostic Test 2022-11-16 HbA1c (hemoglobin [facility] Pending 00:00:00 A1c), blood [code = Group HbA1c (hemoglobin A1c), blood] Diagnostic Test 2022-11-16 TSH, serum or [facility] Pending 00:00:00 plasma [code = TSH, Group serum or plasma] Instructions [facility] Encounters Start End Encounter Admission Attending Care Care Encounter Source Date/Time Date/Time Type Type Clinicians Facility Department ID 2021-04-16 Outpatient P [facility] RAFAEL [id number] [facility]16 [facility] P [facility] RAFA[facility] [id number] [facility] 2020-05-04 Inpatient HANSEL Ricks [id number] [facility] 10:00:00 Lisy Gil [facility] 2022-12-16 2022-12-16 Outpatient Shield MM MMG [id number] [place] 00:00:00 00:00:00 [facility] 2022-11-23 2022-11-23 Outpatient Shield MMG MMG [id number] [place] 00:00:00 00:00:00 [facility] 2022-11-23 2022-11-23 Outpatient [facility] MMG MMG [id number] [place] 00:00:00 00:00:00 0607 [facility] 2022-11-18 2022-11-18 Outpatient EL MANUEL, [facility] [id number] [place] 08:32:00 08:32:00 BALBINA [id number] da [facility] 2022-11-17 2022-11-17 Outpatient Shield MMG MMG [id number] [place] 00:00:00 00:00:00 06 da [facility] 2022-11-16 2022-11-16 Outpatient EL SHIELD, [facility] [id number] [place] 10:33:00 10:33:00 BALBINA [id number] [facility] 2022-11-16 2022-11-16 Outpatient Shield MMG MMG [id number] [place] 00:00:00 00:00:00 0531 da [facility] 2022-11-16 2022-11-16 [place] [facility] - [id number] M atagor 00:00:00 00:00:00 Discovery shaq Jackson MEDICAL ASSISTANT SECRETARY: 600 [facility] 201[facility] [address] , Ph. 2022-11-07 2022-11-07 KAYLEEN Sanchez 1.2.840.114 [id number] Univers 00:00:00 00:00:00 Management Gena NIELSON 350.1.13.10 ity monie BELTRAN 4.2.7.2.686 Lj mcdonnell [phone] [place] [address] [address] 2022-11-03 2022-11-03 Outpatient Shield MMG MMG [id number] [place] 00:00:00 00:00:00 0518 da [facility] 2022-11-03 2022-11-03 Outpatient Shield MMG MMG [id number] [place] 00:00:00 00:00:00 0522 Medical Group 2022-11-03 2022-11-03 Outpatient Shield MM[facility] MM [id number] 023 [place] 00:00:00 00:00:00 0526 Medical Group 2022-05-17 2022-05-17 Outpatient R UNKNOWN, [facility] [id number] Univers 12:00:00 12:00:00 ATTENDING ity of [facility] 2022-05-16 2022-05-16 Outpatient R GEORGE, [facility] [id number] Univers 15:30:00 17:36:24 HAWA ugo o f [facility] 2022-05-16 2022-05-16 Urgent Hawa Bradley Nesha [facility] 1.2.840 .114 [id number] Univers 15:30:00 17:36:24 Care Unknown, Attending HEALTH 350.1.13.10 ity of [place] 4.2.7.2.686 [place] as AMY?BLEA [phone] [address] MEDICAL OFFICE [facility] 2022-05-16 2022-05-16 Letter Provider, [facility] 1.2.970.210 [id number] Univers 00:00:00 00:00:00 (Out) Ang HEALTH 350.1.13.10 it y of Urgent Care [place] 4.2.7.2.686 [place] MAY?BLEA [id number] [address] OFFICE [facility] 2022-05-13 2022-05-13 Outpatient R STEVE [facility] [id number] Univers 11:40:00 12:23:24 RYAN arizmendi o f [facility] 2022-05-13 2022-05-13 Urgent Ryan Urrutia [facility] 1.2.840. 114 [id number] Univers 11:40:00 12:23:24 Care Unknown, Attending HEALTH 350.1.13.10 ity of [place] 4.2.7.2.686 [place] as MAY?BLEA [id number] [address] MEDICAL OFFICE [facility] 2022-05-13 2022-05-13 [facility] 1.2.840.114 [id number] Univers 00:00:00 00:00:00 (Out) [facility] 350.1.13.10 i ty of [place] 4.2.7.2.686 [place] as MAY?BLEA [id number] [facility] 370 [facility] OFFICE [facility] 2021-12-28 2021-12-28 Outpatient MARICEL OSORIO [facility] [id number] [place] 02:34:00 02:34:00 SSA 0712 [facility] 2021-10-20 2021-10-20 Telephone Dandre [facility] 1.2.762.185 [id number] Univers 00:00:00 00:00:00 [facility] 350.1.13.10 it y of [place] 4.2.7.2.686 [place] MAY?BLEA [id number] [address] OFFICE [facility] 2021-10-18 2021-10-18 Urgent Catrina Amos [facility] 1.2.840.114 [id number] Univers 14:40:00 14:49:35 Marbella Laytonefsophy [facility] 350.1.13.10 ity of [place] 4.2.7.2.686 [place] as MYA?BLEA [phone] [address] 2021-10-18 2021-10-18 Outpatient Betty URRUTIA [facility] [id number] Univers 12:00:00 12:00:00 RYAN castillo [facility] 2021-08-19 2021-08-19 Outpatient Betty PÉREZ [facility] [id number] Univers 13:00:00 13:00:00 UTE arizmendi of [facility] 2021-08-05 2021-08-05 Field Sales Representative 2, Adc Lab [facility] 1.2.840.114 [id number] Univers 15:30:00 15:33:30 Ute Collazo 350.1.13.10 ity [facility] 4.2.7.2.[place] PROFESSIO [id number] [facility] [address] 2021-08-05 2021-08-05 Outpatient Betty PÉREZ [facility] [id number] Univers 14:00:00 15:29:43 UTE ity of [facility] 2021-08-05 2021-08-05 Initial Adum, [facility] 1.2.840.114 [id number] Univers 14:00:00 15:29:43 Ute [place] 350.1.13.10 ity of Visit [place]2.7.2.686 [place] [facility] [phone] Me dical NAL [address] BUILDING 2021-07-30 2021-07-30 Outpatient R ROSALBA [facility] [id number] Univers 12:40:00 13:02:09 KADE ity of [facility] 2021-07-30 2021-07-30 Urgent Kade Navarrete [facility] 1.2.840.114 [id number] Univers 12:40:00 13:00:00 [facility] 350.1.13.10 ity of [place] 4.2.7.2.686 [place] MAY?BLEA [id number] Sd dical KNEY [address] MEDICAL OFFICE BUILDING 2021-07-30 2021-07-30 Orders Doctor COPPOLA 1.2.840.114 [id number] Univers 00:00:00 00:00:00 Only Unassigned, MARK 350.1.13.10 ity of [place] [facility] 4.2.7.2.686 [place] as [id number] [facility] [address] 2020-11-06 2020-11-06 Outpatient KARINE [facility] [id number] 00:00:00 00:00:00 [facility] 2020-10-27 2020-10-27 Emergency X JACK ILCAROLE ERT [id number] Univers 09:48:00 11:52:00 TOBIAS ity of [facility] 2020-10-27 2020-10-27 Emergency Jack ILCAROLE 1.2.045.930 [id number] Univers 09:48:00 11:52:00 Tobiassukumar [place] 350.1.13.10 i ty of [place] 4.2.7.2.686 [place] Orr [phone] [facility] [address] 2020-10-27 2020-10-27 Orders Doctor ABDON 1.2.840.114 [id number] Univers 00:00:00 00:00:00 Only Unassigned, MARK 350.1.13.10 ity of [place] [facility] 4.2.7.2.686 [place] [phone] [facility] [address] 2020-03-06 2020-03-06 [facility] 1.2.840.114 [id number] 10:22:00 13:25:00 Encounter Ute Ho [place] 350.1.13.10 [place] 4.2.7.2.686 Orr [phone] [facility] 2020-03-06 2020-03-06 [facility] 1.2.840.114 [id number] [facility] 10:22:00 13:25:00 Encounter Ute Ho [place] 350.1.13.10 ity of [place].2.[place] Or[place] [id number] [address] 2019-09-16 2019-09-16 Field Sales Representative Ian Flores [facility] 1.2.840.114 [id number] 13:01:46 13:16:46 Visit Lab Main [place] 350.1.13.10 [place] 4.2.7.2.686 Professio [phone] [address] 2019-09-16 2019-09-16 Field Sales Representative Ian Flores Lab Main [facility] 1.2.8 40.114 [id number] Univers 13:01:46 13:16:46 Visit Andrew Bui 350.1.13.10 ity of [place].2.[place] Professloyd [id number] Sd dical [address] 2019-09-16 2019-09-16 Outpatient R ANDREW BUI [facility] [id number] Univers 13:00:00 13:00:00 ity of [facility] 2019-09-13 2019-09-13 Field Sales Representative Ian Flores [facility] 1.2.840.114 [id number] 12:15:28 12:30:28 Visit Lab Main [place] 350.1.13.10 [place] 4.2.7.2.686 Professio [id number] [address] 2019-09-13 2019-09-13 Field Sales Representative Ian Flores Lab Main [facility] 1.2.8 40.114 [id number] Univers 12:15:28 12:30:28 Visit Andrew Bui Prabhakar [place] 350.1.13.10 [facility] 4.2.7.2.686 Lj Salcedoio [id number] Sd dical [address] 2019-09-13 2019-09-13 Outpatient R ANDREW BUI [facility] [id number] [facility] 12:15:00 12:15:00 [facility] 2019-03-19 2019-03-19 Outpatient Shield [facility] [id number] [place] 03:33:00 03:33:00 1001 [facility] 2018-06-25 2018-06-25 [facility] [place] - [phone] 9 [place] 00:00:00 00:00:00 Kimo Cole 0107 Anthony Mcnamara Medical MD: [address] [place] [address], Family [address], [place] [address] , Ph. 2013-09-29 2013-09-29 Emergency ER CHOCO [facility] [id number] [place] 18:58:00 21:02:00 -[id number] [facility]ly [facility] 2012-10-12 2012-10-13 Emergency ER LUISA, [facility] [id number] [place] 22:36:00 00:07:00 [facility][id number] Results Test Description Test Time Test Comments Results Result Comments Source POCT MOLECULAR FLU 2022-05-16 22:23:30 Test Item Value Reference Range Interpretation Comme nts POCT Molecular FluA (test code = 47959-7) Negative Negative POCT Molecular FluB (test code = 22836-3) Negative Negative Lab Interpretation (test code = 74113-7) Normal [facility] MOLECULAR [id number] 22:17:24 Test Item Value Reference Range Interpretation Comments POCT Molecular Strep (test code = Negative Negative 81847-1) Lab Interpretation (test code = Normal 58195-2) [facility] MOLECULAR [id number] 18:08:33 Test Item Value Reference Range Interpretation Comments POCT Molecular FluA (test code = Negative Negative 35974-0) POCT Molecular FluB (test code = Negative Negative 83523-0) Lab Interpretation (test code = Normal 24330-4) [facility] MOLECULAR [id number] 18:06:26 Test Item Value Reference Range Interpretation Comments POCT Molecular Strep (test code = Negative Negative 29360-8) Lab Interpretation (test code = Normal 91898-2) [facility] [id number] 20:54:00 Test Item Value Reference Range Interpretation Comments POCT PREG (test code = 1605) Negative On board controls acceptable with C Yes Line (test code = 3574) POCT PREG LOT # (test code = 3575) POCT PREG TEST DATE (test code = 3576) [facility] MOLECULAR [id number] 18:51:32 Test Item Value Reference Range Interpretation Comments POCT Molecular Strep (test code = Negative Negative 36575-8) Lab Interpretation (test code = Normal 37029-9) [facility] [id number] 16:18:07 No acute cardiopulmonary abnormality. Preliminary Report Dictated by Resident: Marjorie Lion MD., have reviewed this study and agree with theabove report.EXAM: XR CHEST 1 VW HISTORY: 25 years-old Female; chest pain Covid positive on October 02,tested negative October 19. Since having covid she has felt intermittent chestpains and pain when breathing deeply TECHNIQUE: Single frontalview of the chest. COMPARISON: None FINDINGS: The lungs are moderately well-expanded, and clear apart from mild perihilarvascular congestion. No focal consolidation, pleural effusion, orpneumothorax isvisualized. The cardiomediastinal silhouette is at the upper limits of normal in size. No acute osseous abnormality is present. [facility], Radiant Results Inft User - 10/27/2020 11:19 AM CDTEXAM: XR CHEST 1VWHISTORY: 25 years-old Female; chest pain Covid positive on October 02,tested negative October 19. Sincehaving covid she has felt intermittent chestpains and pain when breathing deeplyTECHNIQUE: Single frontal view of the chest.COMPARISON: NoneFINDINGS:The lungs are moderately well- expanded, and clear apart from mild perihilarvascular congestion. No focal consolidation, pleural effusion, orpneumothorax is visualized. The cardiomediastinal silhouette is at the upper limits of normal in size. No acute osseous abnormality is present. IMPRESSIONNo acute cardiopulmonary abnormality.Preliminary Report Dictated by Resident: Marjorie Hopkins MD., have reviewed this study and agree with theabove report.[facility] CenterD-[id number] 16:15:20 Test Item Value Reference Interpretation Comments Range D-DIMER (test code = <0.27 See_Comment [Autom ated 2938815360) message] The system which generated this result transmitted reference range : <0.41 ?g/mL (FEU). The reference range was not used to interpret this result as normal/abnormal . CARLOS (test code = This test may be CARLOS) used in conjunction with a clinical pretest [...] diagnosis. Lab Interpretation Normal (test code = 97077-8) [facility] CenterTROPONIN [id number] 16:12:55 Test Item Value Reference Range Interpretation Comments TROPONIN I (test 0.001 ng/mL See_Comment [Automated code = 1326199854) message] The system which generated this result [...] ? Lab Interpretation Normal (test code = 55511-4) [facility] CenterN-TERMINAL [id number] 16:09:50 Test Item Value Reference Range Interpretation Comments NT-proBNP (test code 96 pg/mL See_Comment [Autom ated = 5930833476) message] The system which generated this result transmitted reference range : <=125. The reference range was not used to interpret this result as normal/abnormal . CARLOS (test code = CARLOS) Biotin has been reported to cause a negative bias, interpret results relative to patient's use of biotin. Lab Interpretation Normal (test code = 29602-2) [facility] CenterCOMP. METABOLIC PANEL (93314)2020-10-27 16:01:35 Test Item Value Reference Range Interpretation Comments NA (test code = 140 mmol/L 135-145 8366817704) K (test code = 3.5 mmol/L 3.5-5.0 0745737905) CL (test code = 105 mmol/L 98-108 7008134986) CO2 TOTAL (test code 26 mmol/L 23-31 = 6205681156) AGAP (test code = 2-16 8210339844) BUN (test code = 10 mg/dL 7-23 5061714722) GLUCOSE (test code = 100 mg/dL 70-110 4548615316) CREATININE (test code 0.73 mg/dL 0.50-1.04 = 6616165929) TOTAL BILI (test code 0.7 mg/dL 0.1-1.1 = 5437904906) CALCIUM (test code = 8.9 mg/dL 8.6-10.6 4195315985) T PROTEIN (test code 7.2 g/dL 6.3-8.2 = 6939431348) ALBUMIN (test code = 4.3 g/dL 3.5-5.0 4084989876) ALK PHOS (test code = 92 U/L 34-122 7379401080) ALTv (test code = 17 U/L 5-35 2-6) AST(SGOT) (test code 21 U/L 13-40 = 0474522137) eGFR (test code = mL/min/1.73m2 1988816708) CARLOS (test code = CARLOS) Association of [...] or urine or abnormalities in imaging tests). [facility] CenterPATRICIA BARLOW [id number] 15:59:34 Test Item Value Reference Range Interpretation Comments APTT Patient (test See_Comment [Automat ed code = 3173-2) message] The system which generated this result transmitted reference range : 23 - 38 Seconds . The reference range was not used to interpr et this result as normal/abnormal . CARLOS (test code = CARLOS) The [facility] patient population mean normal value for aPTT is 30 seconds. Lab Interpretation Normal (test code = 29386-9) [facility] CenterPROTHROMBIN TIME / [id number] 15:57:32 Test Item Value Reference Range Interpretation Comments PROTIME PATIENT (test See_Comment [Auto mated message] code = 5964-2) The system ich generated this result transmitted ref erence range: 12.0 - 1 4.7 Seconds. The re ference range was not u sed to interpret this result as normal/abnor mal. INR (test code = 6301-6) Nor mal INR <1.1; Warfarin Therap eutic range 2.0 to 3. 0 or 2.5 to 3.5, dep ending upon the indica tions. Lab Interpretation (test Normal code = 09287-0) [facility] CenterURINALYSIS2021-05-11 15:54:20 Test Item Value Reference Range Interpretation Comments APPEARANCE (test code = Cloudy Clear A 4612469744) COLOR (test code = Yellow Yellow 2343178113) PH (test code = 4.8-8.0 3204315912) SP GRAVITY (test code = 1.003-1.030 3526844328) GLU U QUAL (test code = Normal Normal 8744094807) BLOOD (test code = Negative Negative 7755261756) KETONES (test code = Negative Negative 3125660115) PROTEIN (test code = Negative Negative 2887-8) UROBILIN (test code = Normal Normal 4138351407) BILIRUBIN (test code = Negative Negative 1313759073) NITRITE (test code = Negative Negative 5649409468) LEUK SAV (test code = 250/uL Negative A 7994509669) RBC/HPF (test code = See_Comment H [Autom ated message] 6075062090) The system ic h generated this result transmitted ref erence range: 0 - 3 HP F. The reference range was not used to int erpret this result as normal/abnormal . WBC/HPF (test code = See_Comment H [Autom ated message] 9263705779) The system [email or web address] generated this result transmitted ref erence range: 0 - 5 HP F. The reference range was not used to int erpret this result as normal/abnormal . BACTERIA (test code = Moderate Negative A 6831381424) MUCOUS (test code = Moderate Negative LPF A 7144866851) SQ EPITH (test code = HPF 6355627023) Lab Interpretation (test Abnormal code = 59379-2) [facility] CenterPOCT [id number] 15:48:00 Test Item Value Reference Range Interpretation Comments POCT PREG (test code = 1605) negative On board controls acceptable with present C Line (test code = 3574) POCT PREG LOT # (test code = 3575) [id number] POCT PREG TEST DATE (test 05/18/2022 code = 3576) Lab Interpretation (test code = Normal 90447-7) [facility] WITH [id number] 15:46:09 Test Item Value Reference Range Interpretation Comments WBC (test code = See_Comment [Automated message] 6690-2) The system [email or web address] generated this result transmitted ref erence range: 4.30 - 1 1.10 10*3/?L. The re ference range was not u sed to interpret this result as normal/abnor mal. RBC (test code = See_Comment [Automated message] 789-8) The system [email or web address] generated this result transmitted ref erence range: [...] RDW-SD (test code 40.0 fL 39.0-49.9 = 56691-5) RDW-CV (test code 12.8 % 12.0-15.5 = 788-0) PLT (test code = See_Comment [Automated message] 777-3) The system whic h generated this result transmitted ref erence range: 166 - 35 8 10*3/?L. The re ference range was not u sed to interpret this result as normal/abnor mal. MPV (test code = 10.6 fL 9.5-12.9 11849-0) NRBC/100 WBC (test See_Comment [Automat ed message] code = 4338926475) The syste m which generated this result transmitted ref erence range: 0.0 - 10 .0 /100 WBCs. The refer ence range was not u sed to interpret this result as normal/abnor mal. NRBC x10^3 (test <0.01 See_Comment [Automated message] code = 7762119084) The syste m which generated this result transmitted ref erence range: 10*3/?L. The reference range was not used to interpr et this result as normal/abnormal . GRAN MAT (NEUT) % 69.9 % (test code = 770-8) IMM GRAN % (test 0.40 % code = 0385491307) LYMPH % (test code 21.0 % = 736-9) MONO % (test code 7.4 % = 5905-5) EOS % (test code = 1.1 % 713-8) BASO % (test code 0.2 % = 706-2) GRAN MAT 5.85 10*3/uL 1.88-7.09 x10^3(ANC) (test code = 7266319366) IMM GRAN x10^3 0.03 10*3/uL 0.00-0.06 (test code = 1268237574) LYMPH x10^3 (test 1.76 10*3/uL 1.32-3.29 code = 731-0) MONO x10^3 (test 0.62 10*3/uL 0.33-0.92 code = 742-7) EOS x10^3 (test 0.09 10*3/uL 0.03-0.39 code = 711-2) BASO x10^3 (test <0.03 0.01-0.07 code = 704-7) [facility] CenterFALLOPIAN TUBE,[id number] 07:40:00 Test Item Value Reference Range Interpretation Comments FALLOPIAN TUBE,BIOPSY (test code = FALLBX) RUN DATE: 05/11/20 [facility] PAGE 1 RUN TIME: 1042 Specimen Inquiry RUN USER: INTERFACE PATIENT: ROCIO CHOI LOC: GaleROGERS U #: [id number] AGE/SX: 24/ ROOM: [facility] RE05/04/20REG DR: Lisy Ricks DO : 93 BED: A DIS: 05/06/20 STATUS: DIS IN TLOC: SPEC #: [id number] RECD: 05/05/20 STATUS: PAMELLA REShirley #: [id number] MAYELIN: 05/05/20- SUBM DR: Lisy Ricks DO ENTERED: 05/05/20 ELISSA TYPE: FALLBX OTHR DR: ORDERED: LEVEL IV CODES: [id number] - FALLOPIAN TUBE PROCEDURES: LEVEL IV (Incomplete) TISSUES: FALLOPIAN TUBE, NOS - RIGHT AND LEFT FALLOPIAN TUBE SEGMENTS CLINICAL HISTORY 24 year old, IUP @ 39.1 weeks, previous x3 (kr) FINAL DIAGNOSIS Right fallopian tube, resection: - no pathologic alterations - completely transected lumen demonstrated Left fallopian tube, resection: - benign paratubal cysts (2) - completely transected lumen demonstrated CPT code(s): 10431 x2 cds/kr GROSS DESCRIPTION ANATOMIC SOURCE OF TISSUE (per Requisition): Right and left fallopian tube segments (2 containers) Each specimen is labeled with the patient's name and medical record number. Specimen #1 is designated "right fallopian tube" and consists of a 5 x 0.7 cm pink-purple fallopian tube segment. Fimbriae are identified. Sectioning reveals a pinpoint lumen. Psych Rn sections are submitted in A1. Specimen #2 is designated "left fallopian tube" and consists of a 5.5 x 0.7 cm serra-pink fallopian tube segment with fimbriae. Sectioning reveals a pinpoint lumen. Psych Rn sections are submitted in B1. nolan/bindu 05/05/20 CONTINUED ON NEXT PAGE RUN DATE: 05/11/20 [facility] PAGE 2 RUN TIME: 1042 Specimen Inquiry RUN USER: INTERFACE SPEC #: [id number] PATIENT: ROCIO CHOI #[id number] (Continued) --- Signed Jose Adame 05/08/20 0740 END OF REPORT HGB [id number] 05:28:00 Test Item Value Reference Range Interpretation Comments HEMOGLOBIN (test code = HGB) 10.6 g/dL 10.7-13.9 L HEMATOCRIT (test code = HCT) 32.8 % 32.1-42.1 N AG HEPATITIS B [id number] 13:13:00 Test Item Value Reference Range Interpretation Comments AG HEPATITIS B SURFACE (test code NONREACTIVE NONREACTIVE = HBSAG) IS CONSENT FORM SIGNED FOR HIV TESTING? YAB HEPATITIS C [id number] 13:13:00 Test Item Value Reference Range Interpretation Comments AB HEPATITIS C (test code = NONREACTIVE NONREACTIVE HCVAB) SIGNAL TO CUTOFF (test code = 0.10 <0.80 N CUTOFF) IS CONSENT FORM SIGNED FOR HIV TESTING? YAB [id number] 13:13:00 Test Item Value Reference Range Interpretation Comments AB TREPONEMA (test code = TREPAB) NONREACTIVE NONREACTIVE IS CONSENT FORM SIGNED FOR HIV TESTING? YAB HIV 1 13:13:00 Test Item Value Reference Range Interpretation Comments AB HIV 1 2 (test NONREACTIVE NONREACTIVE Done [facility] code = [id number]) 4th Gen HIV Ag/Ab Combo Screen IS CONSENT FORM SIGNED FOR HIV TESTING? YCOVID 19 Asymptomatic IH [id number] 12:54:00 Test Item Value Reference Range Interpretation Comments COVID 19 NEGATIVE NEGATIVE This test has b een Asymptomatic IH AG authorize d only for the (test code = detection ofpro teins from COVNONPUIAG) SARS-CoV-2, not for any other viruses orpathogens. Ne gative results should be treated as presumptive andconfirmed [...] and/o r diagnosis of CO VID-19 under Cetnurz72 4(b)(1) of the Act, 21 U.S .C. 360bbb-3(b)(1), unless theauthorizatio n is terminated or r evoked sooner. AG HEPATITIS B [id number] 12:50:00 Test Item Value Reference Range Interpretation Comments AG HEPATITIS B SURFACE (test code NONREACTIVE NONREACTIVE = HBSAG) IS CONSENT FORM SIGNED FOR HIV TESTING? YAB HEPATITIS C [id number] 12:50:00 Test Item Value Reference Range Interpretation Comments AB HEPATITIS C (test code = HCVAB) NONREACTIVE SIGNAL TO CUTOFF (test code = CUTOFF) <0.80 IS CONSENT FORM SIGNED FOR HIV TESTING? YAB [id number] 12:50:00 Test Item Value Reference Range Interpretation Comments AB TREPONEMA (test code = TREPAB) NONREACTIVE NONREACTIVE IS CONSENT FORM SIGNED FOR HIV TESTING? YAB HIV 1 12:50:00 Test Item Value Reference Range Interpretation Comments AB HIV 1 2 (test code = KLR34OV) NONREACTIVE IS CONSENT FORM SIGNED FOR HIV TESTING? YURINALYSIS W/O [id number] 12:04:00 Test Item Value Reference Range Interpretation Comments UA GLUCOSE DIPSTICK (test code = NEGATIVE NEGATIVE DGLUU) UA KETONE DIPSTICK (test code = NEGATIVE NEGATIVE KETU) UA PROTEIN DIPSTICK (test code = NEGATIVE NEGATIVE PROU) IS NURSE PERFORMING TEST? NCBC W/AUTO [id number] 12:03:00 Test Item Value Reference Range Interpretation [...] Not Detected Not Detected (test code = 92293-6) CARLOS (test code = CARLOS) ID NOW COVID-19 Assay is an isothermal nucleic acid amplification test intended for the qualitative detection of nucleic acid from SARS-CoV-2 viral RNA in nasopharyngeal (MEDICAL ASSISTANT SECRETARY) specimens. It is used under Emergency Use [...] indicated. Lab Interpretation Normal (test code = 01542-1) [facility] CenterHCG, QUANTITATIVE, [id number] 20:12:00 Test Item Value Reference Range Interpretation Comments BETA HCG (test See_Comment [Automated m essage] code = The system [employer] [id number]) generated this result transmit adiel reference range : Non- fe male and male patien ts: <5 mIU/mL. The reference range was not used to interpret this result as normal/abnormal . CARLOS (test code Gestational Age ? ? = CARLOS) ?Range (mIU/mL) 1-10 ?Weeks ?29-94782648-96 Weeks ?29535-05523491-28 Weeks ?9335-41776398-28 Weeks ?5171-956770 Biotin has been reported to cause a negative bias, interpret results relative to patient's use of biotin. [facility], BLOOD [id number] 18:50:45 Test Item Value Reference Range Interpretation Comments ABO & RH (test code O Positive Performe d at [facility] = 20) Laboratory Serv [facility] Blood [facility]1 [address] [place], [place] [address]Toll Free: [phone] A No. [id number] IAT (test code = Negative Performed a t [facility] 1185) Laboratory Serv [facility] [place], [place] [id number] Free: [phone] A No. [id number] [facility] CenterCBC WITH [id number] 17:38:00 Test Item Value Reference Range Interpretation Comments WBC (test code = See_Comment [Automated message] 6690-2) The system [email or web address] generated this result transmitted ref erence range: 4.30 - 1 1.10 10*3/?L. The re ference range was not u sed to interpret this result as normal/abnor mal. RBC (test code = See_Comment [Automated message] 789-8) The system [email or web address] generated this result transmitted ref erence range: [...] RDW-SD (test code 42.2 fL 39-49.9 = 01253-8) RDW-CV (test code 13.2 % 12-15.5 = 788-0) PLT (test code = See_Comment [Automated message] 777-3) The system [employer] generated this result transmitted ref erence range: 166 - 35 8 10*3/?L. The re ference range was not u sed to interpret this result as normal/abnor mal. MPV (test code = 10.0 fL 9.5-12.9 92474-3) NRBC/100 WBC (test See_Comment [Automat ed message] code = 1094066348) The syste m which generated this result transmitted ref erence range: 0.0 - 10 .0 /100 WBCs. The refer ence range was not u sed to interpret this result as normal/abnor mal. NRBC x10^3 (test <0.01 See_Comment [Automated message] code = 0445956847) The syste m which generated this result transmitted ref erence range: 10*3/?L. The reference range was not used to interpr et this result as normal/abnormal . GRAN MAT (NEUT) % 66.6 % (test code = 770-8) IMM GRAN % (test 0.30 % code = 2964607491) LYMPH % (test code 23.9 % = 736-9) MONO % (test code 7.8 % = 5905-5) EOS % (test code = 1.1 % 713-8) BASO % (test code 0.3 % = 706-2) GRAN MAT 6.36 10*3/uL 1.88-7.09 x10^3(ANC) (test code = 2811714009) IMM GRAN x10^3 0.03 10*3/uL 0-0.06 (test code = 1245515477) LYMPH x10^3 (test 2.29 10*3/uL 1.32-3.29 code = 731-0) MONO x10^3 (test 0.75 10*3/uL 0.33-0.92 code = 742-7) EOS x10^3 (test 0.11 10*3/uL 0.03-0.39 code = 711-2) BASO x10^3 (test 0.03 10*3/uL 0.01-0.07 code = 704-7) [facility] Notes Date/Time Note Provider Source 2020-05-06 07:13:00-00:00 [facility] ([facility]) OB Postpart Progr Note REPORT#:[id number] REPORT STATUS: Signed DATE:05/06/20 TIME: 712 PATIENT: ROCIO CHOI UNIT #: [id number] ROOM/BED: [address] : 93 AGE: 24 SEX: F ATTEND: Timmy Ricks DO ADM AUTHOR: Lisy Ricks DO * ALL edits or amendments must be made on the [employer]/computer document * Subjective Subjective Admission EGA: Weeks: 39 Days: 1 EGA at delivery (wks/days): 39 weeks Status/Day: post (day 2), post operative Patient reports: Patient reports: Yes no complaints, Yes pain management effective, Yes tolerating po well, Yes voiding well, No nausea, No vomiting Objective General VS: Vital Signs: Date Time Temp Pulse Resp B/P B/P Pulse O2 O2 F low FiO2 Mean Ox Delivery Rate 05/05 0850 98.4 61 20 113/66 Patient Weight Weight (lb): 270 Weight (oz): Weight (kg): 122.47 Physical Exam Abdomen: soft, no abnormal tenderness, no guardi ng Incision site: well approximated edges, no drain age, no inflammation Uterus: involution appropriate, non-tender Diagnosis, Assessment Plan Diagnosis, Assessment Plan Assessment: nml progress Plan: routine care, circumcision toda y, discharge today at 1138 RPT #:[id number] END OF REPORT 2020-05-04 12:19:00-00:00 [facility] ([facility]) OB Delivery Note REPORT#:[id number] REPORT STATUS: Signed DATE:05/04/20 TIME: 1219 PATIENT: ROCIO CHOI UNIT #: [id number] [facility] AGE: 24 SEX: F ATTEND: Glen Ricks DO ADM AUTHOR: Lisy Ricks DO * ALL edits or amendments must be made on the [email or web address]/computer document * OB Delivery Nursing Documentation Review Nursing data: The data set between the solid lines has been im ported from nursing documentation. Any exceptions have been noted be low under Provider comments. _ ROM date: ROM time: Membranes rupture method: Amniotic fluid color: Amniotic fluid amount: Steroids prior to arrival: Antibiotic prophylaxis given: Yes Charlotte evaluation at delivery: Delivery date infant A: Delivery time A: Birthweight (gm) A: Weight (lb) A: Weight (oz) infant A: Gender infant A: Male 1 minute infant A: 5 minutes A: 10 minutes A: Cord pH obtained A: Vacuum time A: Vacuum # pulls infant A: Vacuum # popoffs infant A: QBL at delivery: __ Provider comments on imported nursing data: [] Pre-delivery GBS status: GBS status: positive Charlotte evaluation at delivery: NRP certified pe rsonnel Admission EGA: Weeks: 39 Days: 1 EGA at delivery (wks/days): 39 weeks Baby A Information Baby A information Delivery date: 05/04/20 status: live born Gender: male 1 minute: 8 5 minutes: 9 Presentation: vertex ABG details Baby A Cord blood gases: not collected Nuchal cord Baby A Nuchal cord: no Delivery section indication: elective repeat Priority: scheduled : : contraindicated )(SCDs applied activated: Yes Uterine incision: low transverse Uterine scar: intact Consent: indication discussed, questions answer ed, pt consent to op delivery Mother's condition: mother stable 's condition: infant stable in room Op/Inv Proc Note - Brief )(Start date: 05/04/2020 )( Procedure(s) performed: repeat classical c/s, bilateral tubal ligation )( Primary Surgeon: Lillie Ricks )( Toolroom Keeper(s): Lila Bartholomew )( Pre-procedure diagnosis: Term , Previous csection x3 )( Post-procedure diagnosis: Same )( Technique/Procedure: After informed consent was o btained, the patient was taken to the operating room where anesthesia was adminis tered and found to be adequate. She was then prepped and draped in sterile fashio n in a dorsal supine position with a leftward tilt. A time out procedure was then performed and the OR team agreed to the planned procedure. The patient s abdomen was then tested with an Allis clamp and anesthesia was found to be adequate. A Pfannenstiel skin incision was then made with the scalpel and carried down to the underlying fascia with the bovie. The bovie was then used to score the fascia in the midline and the incision w as then extended laterally using bovie electrocautery. The superior aspect of the fasci al incision was then grasped with Daryn clamps, elevated and rectus muscles were dissected off. The inferior aspect of the fascial incision was then grasped with Daryn clamps, elevated and rectus muscles were dissected off. The rectus muscles were then in the mi dline and the peritoneum identified in a clear area and entered bluntly. The peritoneum was then extended superior and inferiorly with good visua lization of the bladder. The bladder blade was then inserted and the vesi couterine peritoneum was then identified, grasped with pic kups and entered sharply using Metzembaum scissors. The incision was then extended laterally and brandan dder flap created digitally. The bladder blade was then r einserted and the uterus was incised in a transverse fashion with the scalpel. The incision w as then extended laterally using blunt dissection. The infant was then delivere d in cephalic presentation atraumatically, nose and mouth were suctioned, cord was clamped and cut, and infant was handed off to waiting nurse. Nuchal cord was not noted. Cord b lood banking was not collected. The placenta was then removed manually a nd the uterus was exteriorized and was cleared of all clots and debris with a moist lap sponge. The hysterotomy was then repaired using 0 Monocr yl in a running locked fashion with good hemostasis noted. The uterus was then returned to the abdom en. The pelvic colic gutters were then cleared off all clots and debris using a moist lap sponge. The hysterotomy and bladder were then reinspected an d found to be hemostatic. Bilateral salpingectomy was performed using lunchroom monitor momo ties and bovie electrocautery. The rectus muscles and perit oneum were then reapproximated in the midline using 2.0 vicryl in a mattress suture fashion. The mus nini and fascia were then examined and found to be hem ostatic. The fascia was then reapproximated using 0 Vicryl in a running fashion. The subcutaneous ti ssue was then irrigated and bovie cautery was used to obtain hemostasis. The subcutaneous tissue was then reapproximated using 2.0 Quinton in. The skin was then closed with 3.0 Monocryl in a subcuticular fashion. The patient tolerated the procedure well. She wa s then taken to recovery room in stable condition. Sponge, lap and needle coun ts were correct times 3. The radiofrequency scan was performed for retained s ponges and was negative. 2 grams of ancef were given prior to the start of surgery for surgical prophylaxis. Anesthesia: spinal anesthesia )( Estimated blood loss (ml): 800 )( Specimen removed/altered: bilateral fallopian tubes )( Complications: none Drain(s): arteaga to gravity Fluids: 2L Urine output: 50cc Condition: stable Blood Loss/Details Blood loss at delivery: <1000 ml at 1324 RPT #:[id number] END OF REPORT 2020-05-04 12:11:00-00:00 [facility] ([facility]) OB Admission / H P REPORT#:[id number] REPORT STATUS: Signed DATE:05/04/20 TIME: 1211 PATIENT: ROCIO CHOI UNIT #: [id number] ROOM/BED: [facility] : 93 AGE: 24 SEX: F ATTEND: Glen Ricks DO ADM AUTHOR: Lisy Ricks DO * ALL edits or amendments must be made on the [email or web address] document * OB History Nursing Documentation Review Nursing data: The data set between the solid lines has been im ported from nursing documentation. Any exceptions have been noted be low under Provider comments. Current data Steroids prior to arrival: ROM date: ROM time: EDC date: 05/10/20 Prior history : 4 Para: 3 Term: : Abortions spontaneous: Abortions induced: Living children: Ectopic: Stillbirths: Live births: deaths: Number of previous C/S: Reported maternal labs/data Blood type: O Rh type: Positive Rubella: Hepatitis B: Negative HIV exposure test: VDRL: Group B beta strep: Positive Rho(D) immune globulin this preg: Monitor mode - UA: Feeding preference: Provider comments on imported nursing data: [] Chief complaint: scheduled HPI: @ 39w1d here for scheduled csection and bilateral salpingectomy. uncomplicated. history: : 4 Term: 3 : 0 Abortus: 0 Living children: 3 Complications (prev preg): none Previous : low uterine trans incis Number of prev : 3 Indication for prior : repeat elective Current : Admission EGA (weeks) 39 Admission EGA (days) 1 Conditions of : anemia Labs: Blood type: O Rh: positive Rubella: immune Hepatitis B: negative HIV: negative STD: negative Syphilis: currently negative GBS: positive Procedures: none Genetic testing: none Past medical history: denies PMH Past surgical history: Social history: no alcohol use, no tobacco use, no drug use Allergies Coded Allergies: shrimp (Severe, ANAPHYLAXIS 05/04/20) nickel (Mild, RASH 05/04/20) Uncoded Allergies: SEAFOOD (Mild, RASH 05/04/20) Review of Systems All systems rev neg: except as marked Objective General VS: Last Documented: Result Date Time B/P Mean 93.0 05/04 1148 B/P 129/69 05/04 1148 Pulse 64 05/04 1148 Temp 97.6 05/04 1100 Resp 18 05/04 1100 Vital Signs Date Temp Pulse Resp B/P B/P Mean Pulse Ox FiO2 05/04 97.6 64 18 129/69 93.0 Patient Weight Weight (lb): 270 Weight (oz): Weight (kg): 122.301323 Physical Exam Abdomen: gravid, no abnormal tenderness, no guar ding Uterine activity: Monitor: toco Frequency (description): rare Membranes: Membranes: SROM Lower extremities: Edema: 1+ pitting Baby A: Baby A baseline: 135 bpm Baby A variability: moderate 6-25 bpm Baby A accelerations: 15 X 15 Baby A decelerations: none Baby A FHR category: category 1 Diagnosis, Assessment Plan Diagnosis, Assessment Plan Assessment/Impression: previous C/S, for repeat Plan: scheduled Reason-sched C section: elective repeat at 1219 RPT #:[id number] END OF REPORT
[2023-01-03 10:13] LABS: Specific Gravity 1.024 (1.005-1.030)
[2023-01-03 10:23] LABS: Specific Gravity 1.024 (1.005-1.030); Urine Bacteria 20-50 /HPF (<20); Urine Bilirubin NEGATIVE (Negative); Urine Blood Negative (Negative); Urine Clarity Extremely Turbid (Clear); Urine Color Light-Yellow (Yellow); Urine Glucose NEGATIVE (Negative); Urine Protein TRACE (Negative); Urine Urobilinogen Normal (Normal)
[2023-01-03 10:29] LABS: Absolute Lymphocytes (CBC) 2.4 K/uL (0.7-4.9); Hematocrit 38.2 % (36.0-45.0); MCV 85.8 fL (80-100); MPV 8.5 fL (7.6-11.3); RBC Red Blood Cell Count 4.44 M/uL (3.86-4.86)
[2023-01-03 10:46] LABS: Albumin 3.5 g/dL (3.4-5.0); Bilirubin Total 0.5 mg/dL (0.2-1.0); Potassium 3.9 mEq/L (3.5-5.1); Protein, Total 7.4 g/dL (6.4-8.2)
--- NOTE | 2023-01-03 10:50 | RAD REPORT ---
EXAM DESCRIPTION: CT - Abdomen Pelvis W Contrast - 01/03/2023 10:28 am CLINICAL HISTORY: Abdominal pain COMPARISON: none. TECHNIQUE: Computed axial tomography of the abdomen pelvis was obtained. 100 cc Isovue-300 was admin istered intravenously. Oral contrast was not requested which limits evaluation of bowel and appendix All CT scans are performed using dose optimization technique as appropriate and may include automated exposure control or mA/KV adjustment according to patient size. FINDINGS: The liver, spleen, pancreas, adrenal and kidneys appear unremarkable. There is no evidence of diverticulitis. Small umbilical hernia. No adnexal mass. No gross abnormality the appendix seen IMPRESSION: No acute abnormality is displayed.
--- NOTE | 2023-01-03 10:58 | EDPHYS ---
Physician Documentation [facility] Name: Marly Cabrera Age: 27 yrs Sex: Female : 1995 Arrival Date: 01/03/2023 Time: 09:31 Bed 19 Private MD: ED Physician Zane Chen HPI: 01/03 10:11 This 27 yrs old Female presents to ER via Ambulatory with complaints of Abdominal Pain. sb4 10:11 The patient presents with abdominal pain in the periumbilical area. in the right upper sb4 quadrant, right lower quadrant. Onset: The symptoms/episode began/occurred 5 day(s) ago. The symptoms radiate to the left flank. Associated signs and symptoms: Pertinent positives: decreased appetite, Pertinent negatives: nausea, vomiting, and diarrhea. The symptoms are described as waxing/waning. Modifying factors: The symptoms are alleviated by food, the symptoms are aggravated by laying down. The patient has not experienced similar symptoms in the past. 27 year old female presents with 5 days of vague abdominal pain- reports it started in the periumbilical area but has moved down to the right. She also complains of left flank pain. Denies n/v/d but does say shes had a decrease in her appetite. States she feels the pain is worse when she lays down at night. Historical: - Allergies: 09:51 HAZEL; bp 09:51 HAZEL; aa5 - Home Meds: 09:51 diethylpropion 75 mg oral tablet, extended release once for weight loss management for aa5 obese patient (body mass index 30 or greater) [Active]; - PMHx: 09:51 None; aa5 - PSHx: 09:51 section; Ligation of fallopian tube; bp 09:51 section; Ligation of fallopian tube; aa5 - Immunization history:: Adult Immunizations up to date, Adult Immunizations unknown. - Social history:: Smoking status: Patient denies any tobacco usage or history of. Smoking status: Patient denies any tobacco usage or history of. ROS: 10:11 Constitutional: Negative for fever, chills, and weight loss, Eyes: Negative for injury, sb4 pain, redness, and discharge, ENT: Negative for injury, pain, and discharge, Cardiovascular: Negative for chest pain, palpitations, and edema, Respiratory: Negative for shortness of breath, cough, wheezing, and pleuritic chest pain, MS/Extremity: Negative for injury and deformity, Skin: Negative for injury, rash, and discoloration, Neuro: Negative for headache, weakness, numbness, tingling, and seizure. 10:11 Abdomen/GI: Positive for abdominal pain, Negative for nausea, vomiting, diarrhea. 10:11 Back: Positive for flank pain, on the left. 10:11 All other systems are negative. Exam: 10:11 Constitutional: This is a well developed, well nourished patient who is awake, alert, sb4 and in no acute distress. Head/Face: Normocephalic, atraumatic. Eyes: Extra-ocular motions intact. Periorbital areas with no swelling, redness, or edema. Cardiovascular: Regular rate and rhythm with a normal S1 and S2. Respiratory: Lungs have equal breath sounds bilaterally, clear to auscultation and percussion. No rales, rhonchi or wheezes noted. No increased work of breathing, no retractions or nasal flaring. Skin: Warm, dry with normal turgor. Normal color with no rashes, no lesions, and no evidence of cellulitis. MS/ Extremity: Pulses equal, no cyanosis. Neurovascular intact. Full, normal range of motion. 10:11 Abdomen/GI: Inspection: abdomen appears normal, Bowel sounds: normal, Palpation: soft, in all quadrants, mild abdominal tenderness, in the right upper quadrant and right lower quadrant. 10:11 Back: CVA tenderness, is noted on the left. Vital Signs: 09:41 BP 121 / 75; Pulse 74; Resp 18 S; Temp 97.9(TE); Pulse Ox 95% on R/A; Weight 122.02 kg aa5 (R); Height 5 ft. 3 in. (R); 10:39 BP 112 / 98; Pulse 60; Resp 16; Pulse Ox 97% ; bp 11:58 BP 112 / 49; Pulse 58; Resp 16; Pulse Ox 98% ; bp 09:41 Body Mass Index 47.65 (122.02 kg, 160.02 cm) aa5 MDM: 09:47 Patient medically screened. sb4 10:15 Differential diagnosis: appendicitis, cholecystitis, Cholelithiasis, Dysmenorrhea, sb4 Ectopic , Endometriosis, gastroesophageal reflux disease, non-specific abd pain, pancreatitis, Pyelonephritis, urinary tract infection. 10:57 Data reviewed: vital signs, nurses notes, lab test result(s), radiologic studies, and sb4 as a result, I will discharge patient. Counseling: I had a detailed discussion with the patient and/or guardian regarding: the historical points, exam findings, and any diagnostic results supporting the discharge/admit diagnosis, lab results, radiology results, to return to the emergency department if symptoms worsen or persist or if there are any questions or concerns that arise at home. 01/03 09:45 Order name: CBC with Diff; Complete Time: 10:34 bp 01/03 09:45 Order name: CMP; Complete Time: 10:53 bp 01/03 09:45 Order name: Lipase; Complete Time: 10:53 bp 01/03 09:45 Order name: Test, Urine; Complete Time: 10:15 bp 01/03 09:45 Order name: Urinalysis w/ reflexes; Complete Time: 10:28 bp 01/03 09:53 Order name: CT Abd/Pelvis - IV Contrast Only; Complete Time: 10:53 bp 01/03 09:45 Order name: IV Saline Lock; Complete Time: 10:31 bp 01/03 09:45 Order name: Labs collected and sent; Complete Time: 10:31 bp Administered Medications: 11:15 Drug: Rocephin IV 1 grams Route: IV; Rate: bolus; Site: left forearm; bp 11:57 Follow up: IV Status: Completed infusion; IV Intake: 100ml bp Disposition: 13:22 Co-signature as Attending Physician, Zane Chen MD I agree with the assessment and kdr plan of care. Disposition Summary: 01/03/23 10:58 Discharge Ordered Location: Home sb4 Problem: new sb4 Symptoms: are unchanged sb4 Condition: Stable sb4 Diagnosis - UTI/ Urinary tract infection, site not specified sb4 Followup: sb4 - With: Private Physician - When: As needed - Reason: Recheck today's complaints, Continuance of care, Re-evaluation by your physician Discharge Instructions: - Discharge Summary Sheet sb4 - Urinary Tract Infection, Adult, [id number] sb4 Forms: - Medication Reconciliation Form sb4 - Thank You Letter sb4 - Antibiotic Education sb4 - Prescription Opioid Use sb4 - Patient Portal Instructions sb4 Prescriptions: - Macrobid 100 mg Oral Capsule - take 1 capsule by ORAL route every 12 hours for 10 days; 20 capsule; Refills: sb4 0, Product Selection Permitted Signatures: Dispatcher [employer] Zane Tracy MD MD kdr Calderon, Audri, RN RN aa5 Rohan Nelson, RN RN Clementina Hickey, MICHAELA JENNINGS sb4
--- NOTE | 2023-01-03 10:58 | ER ---
Nurse's Notes [facility] Name: Marly Cabrera Age: 27 yrs Sex: Female : 1995 Arrival Date: 01/03/2023 Time: 09:31 Bed 19 Private MD: Diagnosis: UTI/ Urinary tract infection, site not specified Presentation: 01/03 09:41 Acuity: DILLON 3 aa5 09:41 Coronavirus screen: At this time, the client does not indicate any symptoms associated aa5 with coronavirus-19. Ebola Screen: Patient denies travel to an Ebola-affected area in the 21 days before illness onset. Initial Sepsis Screen: Does the patient meet any 2 criteria? No. Patient's initial sepsis screen is negative. Does the patient have a suspected source of infection? No. Patient's initial sepsis screen is negative. Risk Assessment: Do you want to hurt yourself or someone else? Patient reports no desire to harm self or others. Onset of symptoms was December 2022. 09:41 Method Of Arrival: Ambulatory aa5 09:41 Chief complaint: Patient states: umbilical pain radiating to RLQ since , pt aa5 also reports pain to left lower back, nausea, and decreased appetite. Triage Assessment: 09:50 General: Appears in no apparent distress. uncomfortable, obese, Behavior is bp cooperative, appropriate for age, anxious. Pain: Complains of pain in abdomen. EENT: No deficits noted. Neuro: No deficits noted. Cardiovascular: No deficits noted. Respiratory: No deficits noted. GI: Reports lower abdominal pain. : No signs and/or symptoms were reported regarding the genitourinary system. Derm: No deficits noted. Musculoskeletal: No deficits noted. Historical: - Allergies: 09:51 HAZEL; bp 09:51 HAZEL; aa5 - Home Meds: 09:51 diethylpropion 75 mg oral tablet, extended release once for weight loss management for aa5 obese patient (body mass index 30 or greater) [Active]; - PMHx: 09:51 None; aa5 - PSHx: 09:51 section; Ligation of fallopian tube; bp 09:51 section; Ligation of fallopian tube; aa5 - Immunization history:: Adult Immunizations up to date, Adult Immunizations unknown. - Social history:: Smoking status: Patient denies any tobacco usage or history of. Smoking status: Patient denies any tobacco usage or history of. Screenin:51 [facility] ED Fall Risk Assessment (Adult) History of falling in the last 3 months, bp including since admission No falls in past 3 months (0 pts). Abuse screen: Denies threats or abuse. Denies injuries from another. Nutritional screening: No deficits noted. Tuberculosis screening: No symptoms or risk factors identified. Assessment: 09:51 General: SEE TRIAGE NOTE. bp 10:39 Reassessment: No changes from previously documented assessment. Patient is alert, bp oriented x 3, equal unlabored respirations, skin warm/dry/pink. 11:58 Reassessment: DC HOME AMBULATORY. bp Vital Signs: 09:41 BP 121 / 75; Pulse 74; Resp 18 S; Temp 97.9(TE); Pulse Ox 95% on R/A; Weight 122.02 kg aa5 (R); Height 5 ft. 3 in. (R); 10:39 BP 112 / 98; Pulse 60; Resp 16; Pulse Ox 97% ; bp 11:58 BP 112 / 49; Pulse 58; Resp 16; Pulse Ox 98% ; bp 09:41 Body Mass Index 47.65 (122.02 kg, 160.02 cm) aa5 ED Course: 09:36 Patient arrived in ED. mg5 09:41 Rohan Nelson, ZEB is Primary Nurse. bp 09:41 Arm band placed on. aa5 09:47 Clementina Mays PA-C is PHCP. sb4 09:47 Zane Chen MD is Attending Physician. sb4 09:48 Triage completed. aa5 09:51 Patient has correct armband on for positive identification. Bed in low position. Call bp light in reach. Side rails up X2. 10:19 Inserted saline lock: 22 gauge in left antecubital area, using aseptic technique. bp 10:29 CT Abd/Pelvis - IV Contrast Only In Process Unspecified. EDMS 11:59 No provider procedures requiring assistance completed. IV discontinued, intact, bp bleeding controlled, No redness/swelling at site. Pressure dressing applied. Administered Medications: 11:15 Drug: Rocephin IV 1 grams Route: IV; Rate: bolus; Site: left forearm; bp 11:57 Follow up: IV Status: Completed infusion; IV Intake: 100ml bp Medication: 09:51 VIS not applicable for this client. bp Intake: 11:57 IV: 100ml; Total: 100ml. bp Outcome: 10:58 Discharge ordered by MD. dorado 11:59 Discharged to home ambulatory. bp 11:59 Condition: stable 11:59 Discharge instructions given to patient, Instructed on discharge instructions, follow up and referral plans. medication usage, Demonstrated understanding of instructions, follow-up care, medications, Prescriptions given X 1. 11:59 Patient left the ED. bp Signatures: Dispatcher [employer] EDUT Raysa Rogers, RN RN aa5 Rohan Nelson RN RN Clementina Hcikey, PA-C PA-C shen4 Mary Mijares 5
[2023-01-03] MEDS ORDERED: CEFTRIAXONE 1000 MG/VIAL ONE (11:27)
[2023-01-03] MEDS ORDERED: NA CHLORIDE 0.9% 100 ML ONE (11:27)
[2023-01-03 12:19] VITALS: TEMP 97.9
[2023-01-03 12:21] VITALS: BP 112/49; O2SAT 98
== END 2023-01-03 11:59 | disposition home or self-care (01) ==
LOC: ER 09:31
DX: N39.0 Urinary tract infection, site not specified (principal); Z91.048 Other nonmedicinal substance allergy status
CPT/HCPCS: 85025; 81001; 36415; 81025; 83690; 80053; 74177; Q9967; J0696

== ENCOUNTER 2024-02-16 10:40 | Emergency (ER) | payer OTHER ==
[2024-02-16] MEDS ORDERED: DIPHENHYDRAMINE 50 MG/ML VIAL ONE (11:00)
[2024-02-16] MEDS ORDERED: NA CHLORIDE 0.9% 1,000 ML ONE (11:01)
[2024-02-16] MEDS ORDERED: FAMOTIDINE 20 MG/2 ML VIAL IV ONE (11:01)
[2024-02-16 11:23] LABS: Absolute Eosinophils 0.2 K/uL (0-0.5); Absolute Lymphocytes (CBC) 2.6 K/uL (0.7-4.9); Absolute Monocytes 0.8 K/uL (0.1-1.3); Absolute Neutrophil 4.9 K/uL (1.8-8.0); Basophils % 0.4 % (0-1.3); Eosinophils % 1.9 % (0-4.4); Hematocrit 40.3 % (36.0-45.0); Hemoglobin 13.1 g/dL (12.0-15.0); Lymphocytes % 31.2 % (15.3-44.8); MCH 28.8 pg (27.0-35.0); MCHC 32.6 g/dL (32.0-36.0); MCV 88.3 fL (80-100); MPV 8.8 fL (7.6-11.3); Monocytes % 8.9 % (3.3-12.3); Neutrophils % 57.6 % (41.7-73.7); Platelets 247 thou/uL (152-406); RBC Red Blood Cell Count 4.56 M/uL (3.86-4.86); Red Cell Distribution Width 13.4 % (12.1-15.2)
[2024-02-16 11:40] LABS: BUN Blood Urea Nitrogen 10 mg/dL (7-18); Bicarbonate 25 mEq/L (21-32); Glomerular Filtration Rate 94 ml/min (=/>90); Glucose Level 118 mg/dL (74-106); Sodium Level 137 mEq/L (136-145)
[2024-02-16 11:41] LABS: Troponin High Sensitivity < 3.0 pg/mL (<58.9)
--- NOTE | 2024-02-16 11:46 | RAD REPORT ---
EXAM DESCRIPTION: Sorin Single View02/16/2024 11:40 am CLINICAL HISTORY: Chest pain COMPARISON: 2020 FINDINGS: The lungs appear clear of acute infiltrate. The heart is normal size IMPRESSION: No acute abnormalities displayed
--- NOTE | 2024-02-16 12:21 | RAD REPORT ---
EXAM DESCRIPTION: CT - Abdomen Pelvis W Contrast - 02/16/2024 12:08 pm CLINICAL HISTORY: Abdominal pain COMPARISON: 2022 TECHNIQUE: Computed axial tomography of the abdomen pelvis was obtained. 100 cc Isovue-300 was admin istered intravenously. Oral contrast was not requested which limits evaluation of bowel and appendix All CT scans are performed using dose optimization technique as appropriate and may include automated exposure control or mA/KV adjustment according to patient size. FINDINGS: The liver, spleen, pancreas, adrenal and kidneys appear unremarkable. There is no evidence of diverticulitis. Small umbilical hernia 3.4 centimeter irregularly-shaped right ovarian cyst. No significant free fluid IMPRESSION: 3.4 centimeter irregularly-shaped right ovarian cyst probably has recently ruptured. No significant free fluid
--- NOTE | 2024-02-16 12:27 | EDPHYS ---
Physician Documentation [facility] Name: Marly Cabrera Age: 28 yrs Sex: Female : 1995 Arrival Date: 02/16/2024 Time: 10:40 Bed 19 Private MD: ED Physician Lincoln Barakat HPI: 02/15 11:00 This 28 yrs old Female presents to ER via Ambulatory with complaints of Chest ec2 Pain. 11:00 Patient arrives today for evaluation of upper abdominal pain along with chest pain. ec2 Ongoing 1 week. No specific alleviating or exacerbating factors, intermittent, some associated nausea.. 11:00 History of C-sections, tubal ligation.. ec2 Historical: - Allergies: 10:48 HAZEL; db - Home Meds: 10:48 semaglutide subcutaneous [Active]; db - PSHx: 10:48 section; Ligation of fallopian tube; db - Immunization history:: Adult Immunizations unknown. - Infectious Disease History:: Denies. - Social history:: Smoking status: Patient denies any tobacco usage or history of. ROS: 11:02 Constitutional: as per hpi ec2 Exam: 11:02 Constitutional: GEN: NAD Head: atraumatic Eyes: EOMI Ears: External ears are ec2 normal. CV: regular rate LUNGS: no respiratory distress ABD: non-distended, soft, tender in the epigastrium, not guarding, not rigid SKIN: no evidence of rashes MSK: no evidence of trauma, soft, tender in the epigastrium, not guarding, not rigid. Vital Signs: 10:46 BP 147 / 99; Pulse 87; Resp 18; Temp 98; Pulse Ox 98% ; Weight 116.12 kg; Height 5 ft. db 3 in. ; 11:18 BP 145 / 84; Pulse 102; Pulse Ox 99% on R/A; Pain 2/10; tm6 12:23 BP 132 / 87; Pulse 79; ec2 12:29 BP 137 / 87; Pulse 84; Resp 18; Temp 98; Pulse Ox 100% on R/A; Pain 0/10; tm6 10:46 Body Mass Index 45.35 (116.12 kg, 160.02 cm) db 11:18 Pain Scale: Adult tm6 12:29 Pain Scale: Adult tm6 MDM: 10:52 Patient medically screened. ec2 11:02 Data reviewed: vital signs. ED course: Patient arrives today for evaluation of upper ec2 abdominal pain and chest pain. Examination remarkable for well-appearing nontoxic individual has reproducible upper abdominal TTP. Will obtain lab work, CT imaging. Differential includes pancreatitis, ACS, doubt PE, doubt dissection.. 11:03 ED course: EKG independently reviewed and interpreted by me, shows normal sinus rhythm, ec2 rate of 75, no acute ST segment elevations, intervals are nonconcerning. . 11:51 ED course: Metabolic profile reassuring, CBC reassuring, troponin is undetectable, ec2 chest x-ray independently reviewed and interpreted by me, shows no acute intrathoracic process. . 12:23 ED course: Patient has CT scan that shows ovarian cysts with likely recent rupture with ec2 no free fluid in the abdomen, suspect this is source the patient's abdominal pain. I doubt torsion given the patient's symptoms ongoing for several days.. 12:26 ED course: On reassessment patient with complete resolution of her symptoms. Will ec2 discharge home. Return precautions given. . 02/15 10:52 Order name: Basic Metabolic Panel; Complete Time: 11:51 ec2 02/15 10:52 Order name: CBC with Diff; Complete Time: 11:51 ec2 02/15 10:52 Order name: Troponin HS; Complete Time: 11:51 ec2 02/15 10:52 Order name: Test, Serum; Complete Time: 11:59 ec2 02/15 10:57 Order name: Lipase; Complete Time: 11:51 ec2 02/15 10:52 Order name: XRAY Chest (1 view); Complete Time: 11:51 ec2 02/15 10:57 Order name: CT Abd/Pelvis - IV Contrast Only; Complete Time: 12:22 ec2 02/15 10:52 Order name: EKG; Complete Time: 10:53 ec2 02/15 10:52 Order name: Cardiac monitoring; Complete Time: 11:17 ec2 02/15 10:52 Order name: EKG - Nurse/Tech; Complete Time: 11:17 ec2 02/15 10:52 Order name: IV Saline Lock; Complete Time: 11:17 ec2 02/15 10:52 Order name: Labs collected and sent; Complete Time: 11:17 ec2 02/15 10:52 Order name: O2 Per Protocol; Complete Time: 11:17 ec2 02/15 10:52 Order name: O2 Sat Monitoring; Complete Time: 11:17 ec2 Administered Medications: 11:18 Drug: NS 0.9% IV 1000 ml IV at 1 bolus Per protocol; 1000 mL bolus Route: IV; Rate: 1 tm6 bolus; Site: right antecubital; 12:10 Follow up: Response: No adverse reaction; IV Status: Completed infusion; IV Intake: tm6 1000ml 11:18 Drug: Droperidol IVP 1.25 mg IVP once Route: IVP; Site: right antecubital; tm6 12:10 Follow up: Response: No adverse reaction tm6 11:18 Drug: diphenhydrAMINE IVP 12.5 mg IVP once Route: IVP; Site: right antecubital; tm6 12:10 Follow up: Response: No adverse reaction tm6 11:18 Drug: Famotidine IVP 10 mg IVP once; dilute with 10 mL 0.9% NaCl; give over 2 minutes tm6 Route: IVP; Site: right antecubital; 12:10 Follow up: Response: No adverse reaction tm6 Disposition Summary: 02/16/24 12:27 Discharge Ordered Notes: Location: Home ec2 Condition: Stable ec2 Diagnosis - Abdominal pain, Generalized ec2 - Other ovarian cysts ec2 Followup: ec2 - With: Private Physician - When: - Reason: Re-evaluation by your physician Discharge Instructions: - Discharge Summary Sheet ec2 - Ovarian Cyst, [id number] ec2 Forms: - Work release form hb - Medication Reconciliation Form ec2 - Antibiotic Education ec2 - Prescription Opioid Use ec2 - Patient Portal Instructions ec2 - Leadership Thank You Letter ec2 Signatures: Dispatcher [employer] Sparkle Molina RN RN db Lincoln Barakat MD MD ec2 Lance Bliss RN RN tm6 Corrections: (The following items were deleted from the chart) 10:48 10:48 Home Meds: SEMIGLUTIDE; cayla kulkarni
--- NOTE | 2024-02-16 12:27 | ER ---
Nurse's Notes [facility] Name: Marly Cabrera Age: 28 yrs Sex: Female : 1995 Arrival Date: 02/16/2024 Time: 10:40 Bed 19 Private MD: Diagnosis: Abdominal pain, Generalized;Other ovarian cysts Presentation: 02/15 10:46 Chief complaint: Patient states: INTERMITTENT CHEST PAIN WITH PALPITATIONS X 1 WEEK. db STARTED THIS AM WHILE WATCHING TV. Coronavirus screen: Client denies travel out of the [place] in the last 14 days. At this time, the client does not indicate any symptoms associated with coronavirus-19. Ebola Screen: Patient negative for fever greater than or equal to 101.5 degrees Fahrenheit, and additional compatible Ebola Virus Disease symptoms Patient denies exposure to infectious person. Patient denies travel to an Ebola-affected area in the 21 days before illness onset. No symptoms or risks identified at this time. Initial Sepsis Screen: Does the patient meet any 2 criteria? No. Patient's initial sepsis screen is negative. Does the patient have a suspected source of infection? No. Patient's initial sepsis screen is negative. Risk Assessment: Do you want to hurt yourself or someone else? Patient reports no desire to harm self or others. Onset of symptoms was February 16, 2024. 10:46 Method Of Arrival: Ambulatory db 10:46 Acuity: DILLON 2 db Triage Assessment: 10:48 General: Appears in no apparent distress. comfortable, Behavior is calm, cooperative. db Pain: Complains of pain in chest. Neuro: Level of Consciousness is awake, alert, obeys commands, Oriented to person, place, time, situation. Cardiovascular: Reports chest pain, palpitations. Respiratory: Airway is patent Respiratory effort is even, unlabored, Respiratory pattern is regular, symmetrical. Historical: - Allergies: 10:48 HAZEL; db - Home Meds: 10:48 semaglutide subcutaneous [Active]; db - PSHx: 10:48 section; Ligation of fallopian tube; db - Immunization history:: Adult Immunizations unknown. - Infectious Disease History:: Denies. - Social history:: Smoking status: Patient denies any tobacco usage or history of. Screenin:20 [facility] ED Fall Risk Assessment (Adult) History of falling in the last 3 months, tm6 including since admission No falls in past 3 months (0 pts) Confusion or Disorientation No (0 pts) Intoxicated or Sedated No (0 pts) Impaired Gait No (0 pts) Mobility Assist Device Used No (0 pt) Altered Elimination No (0 pt) Score/Fall Risk Level 0 - 2 = Low Risk Oriented to surroundings, Maintained a safe environment, Educated pt \T\ family on fall prevention, incl call for assistance when getting out of bed. Abuse screen: Denies threats or abuse. Denies injuries from another. Nutritional screening: No deficits noted. Tuberculosis screening: No symptoms or risk factors identified. Assessment: 11:18 General: Appears in no apparent distress. Behavior is calm, cooperative. Pain: tm6 Complains of pain in chest Pain does not radiate. Quality of pain is described as tightness Pain began one week ago Is intermittent. Neuro: Level of Consciousness is awake, alert, obeys commands, Oriented to person, place, time, situation. Cardiovascular: Reports chest pain, nausea, palpitations, Patient's skin is warm and dry. Chest pain is described as vague. Respiratory: Airway is patent Respiratory effort is even, unlabored, Respiratory pattern is regular, symmetrical. GI: Abdomen is round Reports nausea. : No signs and/or symptoms were reported regarding the genitourinary system. EENT: No signs and/or symptoms were reported regarding the EENT system. Derm: No signs and/or symptoms reported regarding the dermatologic system. Musculoskeletal: No signs and/or symptoms reported regarding the musculoskeletal system. 12:29 Reassessment: Patient appears in no apparent distress at this time. Patient and/or tm6 family updated on plan of care and expected duration. Pain level reassessed. Patient is alert, oriented x 3, equal unlabored respirations, skin warm/dry/pink. 12:29 Reassessment: Patient states feeling better. Patient states symptoms have improved. tm6 Vital Signs: 10:46 BP 147 / 99; Pulse 87; Resp 18; Temp 98; Pulse Ox 98% ; Weight 116.12 kg; Height 5 ft. db 3 in. ; 11:18 BP 145 / 84; Pulse 102; Pulse Ox 99% on R/A; Pain 2/10; tm6 12:23 BP 132 / 87; Pulse 79; ec2 12:29 BP 137 / 87; Pulse 84; Resp 18; Temp 98; Pulse Ox 100% on R/A; Pain 0/10; tm6 10:46 Body Mass Index 45.35 (116.12 kg, 160.02 cm) db 11:18 Pain Scale: Adult tm6 12:29 Pain Scale: Adult tm6 ED Course: 10:41 Patient arrived in ED. im 10:41 Lincoln Barakat MD is Attending Physician. ec2 10:48 Triage completed. db 10:49 Arm band placed on Patient placed in an exam room. db 10:49 EKG done, by ED staff, reviewed by Lincoln Barakat MD. hb 10:52 Client placed on continuous cardiac and pulse oximetry monitoring. NIBP monitoring hb applied. chief learning officer on. Pulse ox on. NIBP on. 11:03 Lance Bliss, ZEB is Primary Nurse. tm6 11:17 Lipase Sent. tm6 11:17 Test, Serum Sent. tm6 11:17 Basic Metabolic Panel Sent. tm6 11:17 CBC with Diff Sent. tm6 11:17 Troponin HS Sent. tm6 11:18 Inserted saline lock: 20 gauge in right antecubital area, using aseptic technique. tm6 Blood collected. Flushed with 10 mL NS. Patient maintains SpO2 saturation greater than 95% on room air. 11:20 Patient has correct armband on for positive identification. Placed in gown. Bed in low tm6 position. Call light in reach. Side rails up X2. Provided Education on: use of call zayas. Door closed. Noise minimized. Warm blanket given. Pillow given. 11:42 XRAY Chest (1 view) In Process Unspecified. EDMS 12:10 CT Abd/Pelvis - IV Contrast Only In Process Unspecified. EDMS 12:35 No provider procedures requiring assistance completed. tm6 12:35 IV discontinued, intact, bleeding controlled, No redness/swelling at site. Pressure tm6 dressing applied. Administered Medications: 11:18 Drug: NS 0.9% IV 1000 ml IV at 1 bolus Per protocol; 1000 mL bolus Route: IV; Rate: 1 tm6 bolus; Site: right antecubital; 12:10 Follow up: Response: No adverse reaction; IV Status: Completed infusion; IV Intake: tm6 1000ml 11:18 Drug: Droperidol IVP 1.25 mg IVP once Route: IVP; Site: right antecubital; tm6 12:10 Follow up: Response: No adverse reaction tm6 11:18 Drug: diphenhydrAMINE IVP 12.5 mg IVP once Route: IVP; Site: right antecubital; tm6 12:10 Follow up: Response: No adverse reaction tm6 11:18 Drug: Famotidine IVP 10 mg IVP once; dilute with 10 mL 0.9% NaCl; give over 2 minutes tm6 Route: IVP; Site: right antecubital; 12:10 Follow up: Response: No adverse reaction tm6 Medication: 11:18 VIS not applicable for this client. tm6 Intake: 12:10 IV: 1000ml; Total: 1000ml. tm6 Outcome: 12:27 Discharge ordered by . ec2 12:35 Discharged to home ambulatory, with family, tm6 12:35 Condition: stable 12:35 Discharge instructions given to patient, family, Instructed on discharge instructions, follow up and referral plans. Demonstrated understanding of instructions, follow-up care, 12:35 Patient left the ED. tm6 Signatures: Dispatcher [employer] Beth Paul RN Sparkle Ureña RN RN Virginia Rodriguez Edwin, MD MD ec2 Masterson, Tawney, RN RN tm6 Corrections: (The following items were deleted from the chart) 10:48 10:48 Home Meds: SEMIGLUTIDE; cayla kulkarni
[2024-02-16 12:54] VITALS: TEMP 98
[2024-02-16 13:02] VITALS: BP 137/87; O2SAT 100
--- NOTE | 2024-02-17 14:00 | EKG ---
Test Date: 2024-02-16 Test Time: 10:49:29 Phd Internship: HB MEASUREMENT RESULTS: Intervals: Rate: 75 WA: 164 QRSD: 78 QT: 378 QTc: 422 [place]: P: 36 WA: 164 QRS: 53 T: 36 INTERPRETIVE STATEMENTS: Sinus rhythm with marked sinus arrhythmia Otherwise normal ECG Compared to ECG 06/05/2021 02:50:05 Sinus bradycardia no longer present Electronically Signed On 02-17-24 13:59:39 CDT by Justice Ruvalcaba
== END 2024-02-16 12:35 | disposition home or self-care (01) ==
LOC: ER 10:40
DX: N83.299 Other ovarian cyst, unspecified side (principal); R07.9 Chest pain, unspecified
CPT/HCPCS: 96361; 93005; 85025; 80048; 36415; 84703; 84484; 83690; 74177; 71045; 96375; 96374; 99285; Q9967; J1200; J7030